=== PATIENT | male | born 1945 | race Caucasian/White ===

== ENCOUNTER 2020-02-04 19:56 | Emergency (ER) | payer MEDICARE, MEDICAID, SELFPAY ==
[2020-02-04] VITALS (10 sets, daily range): BP systolic 93–124; BP diastolic 50–82; PULSE 60–70; RESP 14–20; TEMP 36.4; O2SAT 95–100
--- NOTE | ~2020-02-04 | XR_ITS ---
EXAMINATION: XR chest 1V portable INDICATION: Chest tightness TECHNIQUE: Portable AP chest at 2035 hours COMPARISON: 06/27/2019 FINDINGS: There is chronic atelectasis and scarring of the lung bases. There is a chronic small left pleural effusion. The lungs are free of acute opacities. A small right pleural effusion has developed . There are changes of heart valve replacement. There is no pneumothorax. IMPRESSION: 1. Small pleural effusions, chronic on the left and new on the right. 2. Bibasilar atelectasis, unchanged. Reviewed, dictated and finalized at location A.
--- NOTE | 2020-02-04 20:16 | ECG_ITS ---
Measurements Intervals [place] Rate: 67 P: 40 ND: 176 QRS: -22 QRSD: 176 T: 129 QT: 459 QTc: 485 Interpretive Statements SINUS RHYTHM LEFT BUNDLE BRANCH BLOCK ABNORMAL ECG Electronically Signed On 02-05-2020 7:14:23 CDT by Brooks Ordoñez D.O.
[2020-02-04 20:41] LABS: Basophils Absolute Auto 0.04 K/mm3 (0.00-0.10); Basophils Percent Auto 0.5 % (0.0-1.0); Eosinophils Absolute Auto 0.23 K/mm3 (0.02-0.50); Eosinophils Percent Auto 2.7 % (1.0-6.0); Hematocrit 32.1 % (37.0-46.0); Hemoglobin 10.8 g/dL (12.4-15.3); Immature Granulocyte Absolute 0.02 K/mm3 (0.00-0.00); Immature Granulocyte Percent A 0.2 % (0.0-0.0); Lymphocytes Absolute Auto 3.52 K/mm3 (1.10-4.50); Lymphocytes Percent Auto 40.7 % (18.0-42.0); Mean Corpuscular HGB Conc 33.6 g/dL (32.0-36.0); Mean Corpuscular Hemoglobin 28.5 pg (27.0-31.0); Mean Corpuscular Volume 84.7 fL (78.0-102.0); Mean Platelet Volume 10.9 fl (8.7-11.0); Monocytes Absolute Auto 0.59 K/mm3 (0.10-0.90); Monocytes Percent Auto 6.8 % (2.0-11.0); Neutrophils Absolute Auto 4.2 K/mm3 (1.7-7.2); Neutrophils Percent Auto 49.1 % (50.0-70.0); Platelet Count Result 254 K/mm3 (150-420); Red Blood Count 3.79 M/mm3 (4.70-6.10); Red Cell Distribution Width 15.2 % (11.6-14.4); White Blood Count 8.6 K/mm3 (4.8-10.8)
--- NOTE | 2020-02-04 20:49 | ED.CHESTPAIN ---
HPI - Chest Pain General Chief Complaint: Chest Pain Stated Complaint: AMB Source: patient Mode of arrival: EMS Limitations: no limitations History of Present Illness HPI narrative: 74 y.o. male with hx of CABG 11/28/2011, HTN, DM, hyperlipidemia developed a sensation in his left chest of his heart being squeezed . It is non-radiating with no assoc. neck, back or arm pain. This has been associated with feeling lightheaded, sweating and shortness of breath. He denies nausea/vomiting. He has not had this pain recently. He states he's had a heart attack before which felt just like this. Related Data Home Medications Medication Instructions Recorded Confirmed aripiprazole 10 mg PO HS 02/04/20 02/04/20 aspirin [Aspirin Low Dose] 81 mg PO DAILY 02/04/20 02/04/20 atorvastatin 20 mg PO DAILY 02/04/20 02/04/20 divalproex 250 mg PO BID 02/04/20 02/04/20 fenofibrate nanocrystallized 145 mg PO DAILY 02/04/20 02/04/20 furosemide 40 mg PO DAILY 02/04/20 02/04/20 insulin glargine [Lantus U-100 32 unit SUBCUT HS 02/04/20 02/04/20 Insulin] insulin lispro [Humalog KwikPen 10 unit SUBCUT TID 02/04/20 02/04/20 Insulin] ipratropium-albuterol 3 ml INHALATION Q6H PRN 02/04/20 02/04/20 loratadine 10 mg PO DAILY 02/04/20 02/04/20 metformin 500 mg PO DAILY 02/04/20 02/04/20 pantoprazole 40 mg PO DAILY 02/04/20 02/04/20 sertraline 100 mg PO DAILY 02/04/20 02/04/20 warfarin 2.5 mg PO HS 02/04/20 02/04/20 warfarin 5 mg PO HS 02/04/20 02/04/20 Allergies Allergy/AdvReac Type Severity Reaction Status Date / Time No Known Allergies Allergy Verified 10/12/18 15:30 Review of Systems Constitutional: Constitutional: Reports no additional constitutional complaints, Denies chills and Denies fever(s) Eyes: Eyes: Denies change in vision ENT: Denies nasal congestion and Denies sore throat Cardiovascular: Cardiovascular: Reports no additional cardiovascular complaints Respiratory: Respiratory: Denies cough, Denies pain on inspiration and Denies pain with cough Gastrointestinal: Gastrointestinal: Reports no additional gastrointestinal complaints, Denies abdominal pain and Denies diarrhea Genitourinary: Genitourinary: Denies dysuria Musculoskeletal: Musculoskeletal: Reports no additional musculoskeletal complaints Integumentary/Breasts: Skin/Breast: Denies rash Neurologic: Denies headache(s) Psychiatric: Psychiatric: Denies suicidal ideation Endocrine: Endocrine: Denies polydipsia Hematologic/Lymphatic: Hematologic/Lymphatic: Denies easy bleeding [facility] Past Medical History Medical History (Updated 02/05/20 @ 06:46 by Ulises Choi MD) Atrial fibrillation Postoperatively after CABG with bioprosthetic aortic valve replacement Chronic anemia Chronic anticoagulation With Coumadin INR 2.2 February 03, 2001 Diabetes mellitus, with long-term current use of insulin Diastolic congestive heart failure, NYHA class 2 Echocardiogram August 2019: 1. Left ventricular systolic function is normal, estimated at 60-65%. 2. There is mildly increased left ventricular wall thickness. 3. Left ventricular septal wall motion is abnormal with septal motion related to bundle branch block. 4. The left ventricular diastolic function is grade II diastolic dysfunction. 5. Probable perimembranous VSD peak velocity 5.3 m/sec 110 mmHg gradient, however, not well visualized on this study. 6. The bioprosthetic aortic valve is not well visualized. 7. There is no bioprosthetic aortic valve stenosis. 8. There is trace regurgitation of the bioprosthetic aortic valve. 9. The mitral valve has thickened leaflets. 10. There is trace mitral valve regurgitation. 11. Focal, predominantly fixed and calcified echodensity above anterior mitral valve leaflet. 12. Unable to estimate PA systolic pressure due to poor spectral resolution of tricuspid regurgitant jet. 13. Mild mitral annular calcification. Glaucoma Hyperlipidemia Hypertension Mitral valve prolapse
[2020-02-04] MEDS: SODIUM CHLORIDE 0.9% IV 1,000 ML 999 ML IV CONT (20:52)
[2020-02-04 20:53] LABS: D Dimer 0.26 mg/L (0.19-0.50)
[2020-02-04 20:57] LABS: Alanine Aminotransferase 14 U/L (16-63); Albumin Level 3.2 g/dL (3.4-5.0); Alkaline Phosphatase 49 U/L (46-116); Anion Gap 13.2 mmol/L (7-16); Aspartate Amino Transferase 18 U/L (15-37); Bilirubin,Total 0.3 mg/dL (0.00-1.00); Blood Urea Nitrogen 42 mg/dL (7-18); Calcium 8.4 mg/dL (8.5-10.1); Carbon Dioxide 25 mmol/L (21-32); Chloride 104 mmol/L (98-108); Estimated Glomerular Filt Rate 48; Glucose 122 mg/dL (70-99); Osmolality Calculated 297 mOsm/kg (285-295); Potassium 4.2 mmol/L (3.5-5.1); Sodium 138 mmol/L (136-145); Total Protein 6.2 g/dL (6.4-8.2); Troponin I 0.03 ng/mL (0.00-0.056)
[2020-02-04 21:05] LABS: BNP 179 pg/mL (0-100)
[2020-02-04] MEDS: NITROGLYCERIN SL 0.4 MG TABLET SUBLINGUAL (21:17)
--- NOTE | 2020-02-04 21:48 | PC.NURSE ---
calista Saeedwarehouse loader at [place] contacted for transfer
--- NOTE | 2020-02-04 22:02 | PC.NURSE ---
1 L IVF completed per ERP verbal orders
[2020-02-04 22:11] LABS: INR 2.2; Prothrombin Time 22.1 Seconds (9.64-11.0)
[2020-02-04] MEDS: HEPARIN SODIUM 5,000 UNITS/ML VIAL 4000 UNITS IV PUSH (22:42)
[2020-02-04] MEDS: HEPARIN SOD/D5W 100 UNITS/ML 25,000 UNITS/250 ML BAG 8.1 UNITS (22:43)
--- NOTE | 2020-02-04 23:18 | ECG_ITS ---
Measurements Intervals [place] Rate: 72 P: 16 IA: 181 QRS: -29 QRSD: 173 T: 128 QT: 467 QTc: 515 Interpretive Statements SINUS RHYTHM LEFT BUNDLE BRANCH BLOCK BASELINE ARTIFACT- I, II, III ABNORMAL ECG Electronically Signed On 02-05-2020 7:14:44 CDT by Brooks Ordoñez D.O.
--- NOTE | 2020-02-04 23:27 | PC.NURSE ---
CONTACTED ERP AT THIS TIME
[2020-02-04 23:52] LABS: Troponin I 0.03 ng/mL (0.00-0.056)
[2020-02-05 00:26] VITALS: BP 130/71; PULSE 70; RESP 18; O2SAT 97
--- NOTE | 2020-02-05 00:26 | PC.NURSE ---
Pt. resting, waiting transfer and to give report/Rm bed assignment at [facility]. Pt. informed on wait time, no c/o, VSS.
[2020-02-05 00:47] VITALS: BP 112/60; PULSE 71; RESP 18; O2SAT 98
[2020-02-05 01:02] VITALS: BP 114/63; PULSE 72; RESP 18; TEMP 36.6; O2SAT 97
--- NOTE | 2020-02-05 01:19 | PC.NURSE ---
0110 Call palced to [facility] for pt. transfer due to [facility] having no available staff for transfer.
--- NOTE | 2020-02-05 02:12 | PC.NURSE ---
Report given to [facility], pt. sleeping, VSS.
[2020-02-05 02:13] VITALS: BP 122/67; PULSE 72; RESP 18; TEMP 36.7; O2SAT 98
[2020-02-05 03:22] LABS: Glucose Point of Care 60 (65-105)
== END 2020-02-05 02:13 | disposition short-term general hospital (02) ==
PROVIDERS: Emergency Provider Family Medicine
DX: R07.9 Chest pain, unspecified (principal); N17.9 Acute kidney failure, unspecified; R06.02 Shortness of breath; I48.91 Unspecified atrial fibrillation; Z79.01 Long term (current) use of anticoagulants; E11.9 Type 2 diabetes mellitus without complications; Z79.4 Long term (current) use of insulin; E78.5 Hyperlipidemia, unspecified; I10 Essential (primary) hypertension
CPT/HCPCS: 36415; 71045; 80053; 83880; 84484; 85025; 85380; 85610; 93005; 96361; 96365; 96366; 99283; 99285; A9270; J1644; J7030

== ENCOUNTER 2020-02-05 08:00 | Inpatient (IN) | payer MEDICARE, MEDICAID, SELFPAY ==
[2020-02-05] VITALS (9 sets, daily range): BP systolic 104–147; BP diastolic 49–70; PULSE 57–70; RESP 18–20; TEMP 35.8–36.6; O2SAT 96–99; BMI 27.1
--- NOTE | 2020-02-05 03:51 | ADMGEN ---
This patient, Nery Bowie, was admitted to IMU Room 202-01 02/05/20 0250 DIRECT ADM. FROM [facility]. Patient/family oriented to hospital policies and general routines including ID bracelet, bed and alarms, visiting hours, pain management, procedures, bathroom and other care routines, personal items, smoking policy, room service/diet, and visiting hours. Valuables list has been completed. Information on how to activate the Rapid Response Team has been discussed. Patient/Family are encouraged to report perceived risks to care and to ask questions if they do not understand what they are told or what they should do.
--- NOTE | 2020-02-05 03:56 | PM.IMHP ---
H&P: HPI History of Present Illness Chief complaint: Chest Pain Narrative: Date and time of patient contact: 02/05/2020 at 4:30 a.m. Nery Bowie is a 74 year old male with a past medical history of coronary artery disease status post 2 vessel CABG, bioprosthetic aortic valve replacement, VSD, diabetes on insulin therapy, and intellectual disability who presented to the ER at [facility] due to chest pain. The patient had had an abnormal stress test as outpatient and had been scheduled for an outpatient cardiac catheterization January 22, 2020 however his catheterization did not occurred due to the current COVID-19 crisis. The patient developed left chest discomfort and feeling as if his heart was ?being squeezed.? He also reported lightheadedness, sweating and shortness of breath. He denies any nausea or vomiting. He had not noticed any radiation of his pain. The symptoms were similar to his prior heart attack. At the outside ER the patient received 1 dose of sublingual nitroglycerin which caused borderline hypotension with systolic blood pressures in 93/54. The nitroglycerin did improve his symptoms somewhat. Review of Systems Review of Systems: Narrative: 12 systems were reviewed with pertinent positives and negatives per HPI. Except as documented in the HPI, all other systems were reviewed and are negative. However review of systems is not the most reliable given the patient's intellectual disability and psychiatric illness. [facility] Past Medical History Medical History (Updated 02/05/20 @ 06:46 by Ulises Choi MD) Atrial fibrillation Postoperatively after CABG with bioprosthetic aortic valve replacement Chronic anemia Chronic anticoagulation With Coumadin INR 2.2 February 03, 2001 Diabetes mellitus, with long-term current use of insulin Diastolic congestive heart failure, NYHA class 2 Echocardiogram August 2019: 1. Left ventricular systolic function is normal, estimated at 60-65%. 2. There is mildly increased left ventricular wall thickness. 3. Left ventricular septal wall motion is abnormal with septal motion related to bundle branch block. 4. The left ventricular diastolic function is grade II diastolic dysfunction. 5. Probable perimembranous VSD peak velocity 5.3 m/sec 110 mmHg gradient, however, not well visualized on this study. 6. The bioprosthetic aortic valve is not well visualized. 7. There is no bioprosthetic aortic valve stenosis. 8. There is trace regurgitation of the bioprosthetic aortic valve. 9. The mitral valve has thickened leaflets. 10. There is trace mitral valve regurgitation. 11. Focal, predominantly fixed and calcified echodensity above anterior mitral valve leaflet. 12. Unable to estimate PA systolic pressure due to poor spectral resolution of tricuspid regurgitant jet. 13. Mild mitral annular calcification. Glaucoma Hyperlipidemia Hypertension Mitral valve prolapse OCD (obsessive compulsive disorder) Schizophrenia VSD (ventricular septal defect) Postoperative EST managed conservatively Surgical History Surgical History (Updated 02/05/20 @ 04:09 by Marine Gaffney DO) History of aortic valve replacement with bioprosthetic valve Hx of CABG 2 vessel CABG October 2011 with GONZALEZ to LAD and left radial artery graft to obtuse marginal branch Family History Family History Mother Diabetes mellitus Adopted (not a blood relative) Father Cancer Adopted (not a blood relative) Social History Social History (Updated 02/05/20 @ 04:14 by Marine Gaffney DO) Social History: The patient is adopted so family history is unknown. The patient's legal guardian is Aicha Rogers. He lives in a nursing home in [place]. Primary care physician: Dr. Adrian Logan Code status: Full code Smoking packs per day: 1 Smoking cigarettes per day: 20.0 Years smoked: 3
[2020-02-05 04:23] LABS: Glucose Point of Care 177 (65-105)
[2020-02-05 04:59] LABS: Blood Urea Nitrogen 36 mg/dL (9-20); Calcium 8.2 mg/dL (8.4-10.2); Carbon Dioxide 25 mmol/L (22-30); Chloride 105 mmol/L (98-107); Estimated CRCL calculation 50 ml/min; Estimated Glomerular Filt Rate > 60; Glucose 186 mg/dL (75-110); Potassium 4.1 mmol/L (3.4-5.0); Sodium 134 mmol/L (137-145)
[2020-02-05 05:11] LABS: Troponin I < 0.012 ng/mL (0.000-0.034)
[2020-02-05] MEDS: SODIUM CHLORIDE 0.9% IV 1,000 ML 100 ML IV CONT (05:12)
--- NOTE | 2020-02-05 08:53 | PM.IMPN ---
Progress Note: A&P Assessment and Plan (1) Chest pain: Qualifiers: Chest pain type: chest pain due to myocardial ischemia Ischemic chest pain type: unstable angina pectoris Qualified Code(s): I20.0 - Unstable angina Code(s): R07.9 - Chest pain, unspecified Status: Acute Assessment and Plan: Atypical chest pain. Serial troponin levels are negative. Cardiology consulted and appreciate input. Discussed with Dr. Garcia and does not appear to need urgent cardiac catheterization at this time. Will discharge home with outpatient cardiology follow-up. (2) Acute kidney injury: Code(s): N17.9 - Acute kidney failure, unspecified Status: Acute Assessment and Plan: Creatinine slightly elevated but has already returned to his baseline. No further investigation needed at this time. 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 Warfarin not given last night. Continue to follow INR. (4) Hypertension: Qualifiers: Hypertension type: essential hypertension Qualified Code(s): I10 - Essential (primary) hypertension Code(s): I10 - Essential (primary) hypertension Status: Acute Assessment and Plan: Not on medication. Blood pressure reviewed on 02/05/2020 and stable. (5) Diastolic congestive heart failure, NYHA class 2: Qualifiers: Congestive heart failure chronicity: chronic Qualified Code(s): I50.32 - Chronic diastolic (congestive) heart failure Code(s): I50.30 - Unspecified diastolic (congestive) heart failure Status: Acute Assessment and Plan: No exacerbation at this time. 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 Continue home Lantus, Humalog and metformin. Sliding scale insulin available as needed. (7) DVT prophylaxis: Code(s): Z29.9 - Encounter for prophylactic measures, unspecified Status: Acute Assessment and Plan: INR therapeutic. Time Spent With Patient Time with patient: 15 - 25 minutes Subjective Date/time seen: 02/05/20 08:53 Interval history: Date of Service: 02/05/2020. Transferred from [place] with atypical chest pain. Patient does intellectual disability. Still complains of pain left lower chest. Always has shortness of breath. No abdominal pain. Hungry. Review of Systems Constitutional: Constitutional: Denies chills and Denies fever(s) Cardiovascular: Cardiovascular: Reports chest pain (pressure left lower chest), Denies lightheadedness and Denies palpitations Respiratory: Respiratory: Reports dyspnea (always) Gastrointestinal: Gastrointestinal: Denies abdominal pain, Denies nausea and Denies vomiting Genitourinary: Genitourinary: Reports no additional male genitourinary complaints Musculoskeletal: Musculoskeletal: Reports no additional musculoskeletal complaints Integumentary/Breasts: Skin/Breast: Denies rash Neurologic: Denies headache(s) Psychiatric: Psychiatric: Denies confusion Comments: known intellectual disability Exam Narrative: Exam Narrative: Awake and alert. Const: General: no acute distress HENMT: Mouth: Yes moist mucous membranes Neck: Neck: supple Lymphatic: lymphadenopathy not noted Resp: Auscultation: clear to auscultation bilaterally, no rales and no wheezes Cardio: Rate: regular rate Rhythm: regular rhythm Heart sounds: Murmur heart sound present (holosystolic mu
--- NOTE | 2020-02-05 09:10 | PM.CNCAR ---
Assessment and Plan Additional Plan This is a 74-year-old gentleman with: Chest pain syndrome which began last evening which is highly atypical and in my opinion not very suggestive of myocardial ischemia. The fact that the symptom has been going on now for about 13 hours with completely normal biomarkers would lead me to the conclusion that the chances of this being an acute coronary syndrome are vanishingly small The patient does have a history of coronary artery disease with previous 2 vessel CABG as detailed above. Recent nuclear stress test in the office was reported as being abnormal and was done not because of symptomatology but because of the new left bundle branch block. It is reasonable to consider angiography for further evaluation of this which apparently was the plan of Dr. Rodriguez but it is clear that this is not an urgent matter is and cannot be done today as the patient is systemically anticoagulated. A keeping him in the hospital for an angiogram would result in a hospitalization of at least several days which in this environment of mccarthy virus seems imprudent. I would recommend allowing him to be discharged back to his care home facility. Systemic anticoagulation with warfarin has been continued by Dr Rodriguez and as such I would continue this. If he does want to proceed with an angiogram this can be scheduled in an elective fashion after the [place] Coronavirus pandemic has settled down Prince Garcia MD [facility] History of Present Illness History of Present Illness Consult date/time: Date of service: 02/05/20 09:10 Consult reason: chest pain Reason For Visit: Chest Pain Narrative: This is a 74-year-old gentleman who is well known to Dr. Echeverria of our practice. The patient is being seen at the request of the hospitalist after he was admitted here last evening from the emergency room because of some chest pain. The patient is a somewhat difficult historian because of diminished mental capacity. Apparently he lives in some sort of a care home facility and is a casey of the formerly [facility]. He is a reasonable historian however in indicates that yesterday about 7:00 p.m. he started to notice some chest pain he describes it as a a mild dull squeezing sensation in the low substernal region. This symptom did not make him feel ill in any other way he denies becoming diaphoretic having any shortness of breath or radiation of this symptom to any other location. The symptoms since it began has not been unremitting and continues through the night and is still there this morning. It is interesting because when I entered the room to see him he appears to be perfectly comfortable and in no distress of any kind. Despite this symptom as he is describing and he says he had a very good night sleep and feels well this morning and of normal otherwise. His only other complaint this morning is asking for something to eat. The patient was scheduled to have a follow-up coronary angiogram as an outpatient after being evaluated by Dr. foley recently in the office. The patient however has no recollection that this was in the plans. He does not seem to have a lot of memory of his previous cardiac care. According to the records in our chart the patient has a history of coronary disease and aortic valve disease. He was treated in October of 2011 with a 2 vessel bypass including a left internal mammary artery graft to the LAD. A radial artery T graft from the GONZALEZ to the obtuse marginal and a bioprosthetic aortic valve replacement he received a 21 mm magna pericardial bioprosthesis. According to the records as a complication of his surgery he has a small perimembranous VSD which creates an obvious murmur this is been evaluated a number of times of echo was in transesophageal echoes and according to what I see in the chart is not felt to be of hemodynamic significance. His operation was complicated by postop atrial fib but he has been in sinus rhythm recently. His last
[2020-02-05] MEDS: INSULIN ASPART (*BKC) 100 UNITS/ML 10 UNITS SUB-Q ×2 (09:43→12:15)
[2020-02-05] MEDS: INSULIN ASPART (*BKC) 100 UNITS/ML SUB-Q (09:45)
--- NOTE | 2020-02-05 09:51 | PM.DS ---
DS: Diagnosis Admitting Diagnosis Admitting Diagnosis: Unstable angina Discharge Diagnosis (1) Chest pain: Qualifiers: Chest pain type: chest pain due to myocardial ischemia Ischemic chest pain type: unstable angina pectoris Qualified Code(s): I20.0 - Unstable angina Code(s): R07.9 - Chest pain, unspecified Status: Acute (2) Acute kidney injury: Code(s): N17.9 - Acute kidney failure, unspecified Status: Acute (3) Chronic anticoagulation: Code(s): Z79.01 - alf (current) use of anticoagulants Status: Acute (4) Hypertension: Qualifiers: Hypertension type: essential hypertension Qualified Code(s): I10 - Essential (primary) hypertension Code(s): I10 - Essential (primary) hypertension Status: Acute (5) Diastolic congestive heart failure, NYHA class 2: Qualifiers: Congestive heart failure chronicity: chronic Qualified Code(s): I50.32 - Chronic diastolic (congestive) heart failure Code(s): I50.30 - Unspecified diastolic (congestive) heart failure Status: Acute (6) Diabetes mellitus, with long-term current use of insulin: Qualifiers: Diabetes mellitus complication status: without complication Diabetes mellitus type: type 2 Qualified Code(s): E11.9 - Type 2 diabetes mellitus without complications; 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 Hospital Course: Date of Service of Discharge: February 05, 2020. History of Present Illness: Patient is a 74-year-old gentleman with known CAD, bioprosthetic aortic valve replacement, VSD, diabetes insulin requiring and intellectual disability who presented to the emergency room at [facility] with chest pain. Patient had recent abnormal outpatient stress test and was scheduled for outpatient cardiac catheterization on January 22, 2020 but this was canceled due to current COVID-19 pandemic. Patient reports he developed left-sided chest discomfort while watching TV and eating popcorn. He describes the discomfort as a squeezing sensation. He also reported feeling lightheaded, sweating and with shortness of breath. No nausea or vomiting. No radiation of pain. Patient reports symptoms were similar to his prior heart attack. At the outlying emergency room, he did receive 1 dose of sublingual nitroglycerin causing borderline hypotension although did improve symptoms somewhat. Patient was transferred to [facility] for cardiac opinion and further evaluation. Course in Hospital: Patient was admitted to the IMU upon transfer to [facility]. He already had 2- troponin levels at [facility] with 3rd troponin level also negative. EKG with no acute changes. Telemetry was monitored with no acute changes seen. Patient continued to have persistence of left lower chest pain but otherwise was in not in distress. He was seen in consultation by Cardiology and pain felt to be atypical and not requiring emergent cardiac catheterization at this time. With troponin levels remaining negative and patient otherwise stable, patient was felt appropriate to discharge home with outpatient cardiac follow-up. Blood pressure continued to be monitored and was stable. There was no exacerbation of his congestive heart failure. Patient's INR was therapeutic but he was not give her in warfarin on transfer to [facility] InCase of potential for invasive procedure. Plan to resume patient's normal warfarin on discharge. He also did have slight increase in his creatinine above his normal at [facility] but returned to baseline on repeat at [facility]. Glucose remained in his normal range with his home Lantus, Humalog and metformin continued. With the patient stable and no need
[2020-02-05] MEDS: FENOFIBRATE NANOCRYSTALLIZED 145 MG TABLET PO (09:52)
[2020-02-05] MEDS: ATORVASTATIN 20 MG TABLET PO (09:53)
[2020-02-05] MEDS: DIVALPROEX SODIUM SPRINKLE 125 MG CAP.DR 250 MG PO (09:53)
[2020-02-05] MEDS: metFORMIN HCL XR 500 MG TAB.SR.24H PO (09:54)
[2020-02-05] MEDS: SERTRALINE HCL 50 MG TABLET 100 MG PO (09:54)
[2020-02-05] MEDS: LORATADINE 10 MG TABLET PO (09:55)
[2020-02-05] MEDS: ASPIRIN 81 MG ENTERIC TABLET PO (09:55)
--- NOTE | 2020-02-05 14:09 | PC.NURSE ---
To OR via bed accompanied by surgery RN's -
[2020-02-05 17:42] LABS: Glucose Point of Care 93 (65-105)
[2020-02-05 17:42] LABS: Glucose Point of Care 244 (65-105)
== END 2020-02-05 14:03 | disposition home or self-care (01) | DRG 303 ==
PROVIDERS: Admitting Provider Internal Medicine; Visit Provider Hospitalist
DX: I25.110 Atherosclerotic heart disease of native coronary artery with unstable angina pectoris (principal); I50.32 Chronic diastolic (congestive) heart failure; N17.9 Acute kidney failure, unspecified; I51.0 Cardiac septal defect, acquired; Z95.1 Presence of aortocoronary bypass graft; Z95.3 Presence of xenogenic heart valve; E11.9 Type 2 diabetes mellitus without complications; Z79.4 Long term (current) use of insulin; F79 Unspecified intellectual disabilities; I25.2 Old myocardial infarction; D64.9 Anemia, unspecified; Z79.01 Long term (current) use of anticoagulants; H40.9 Unspecified glaucoma; E78.5 Hyperlipidemia, unspecified; I34.1 Nonrheumatic mitral (valve) prolapse; F42.9 Obsessive-compulsive disorder, unspecified; F20.9 Schizophrenia, unspecified; Z87.891 Personal history of nicotine dependence; I44.7 Left bundle-branch block, unspecified; I11.0 Hypertensive heart disease with heart failure
CPT/HCPCS: 36415; 80048; 84484; A9270; J1815; J7030

== ENCOUNTER 2020-03-23 00:06 | Outpatient (CLI) | payer MEDICARE, MEDICAID, SELFPAY ==
[2020-03-23 16:10] LABS: SARS-CoV-2 RNA PCR Negative
== END 2020-03-23 00:07 | disposition home or self-care (01) ==
LOC: ANHCOVIDDT 00:07
PROVIDERS: PCP Family Medicine; Visit Provider Internal Medicine Cardiovascular Disease
DX: Z01.818 Encounter for other preprocedural examination (principal); Z11.59 Encounter for screening for other viral diseases; R94.39 Abnormal result of other cardiovascular function study
CPT/HCPCS: 87635; C9803; U0003

== ENCOUNTER 2020-03-25 01:09 | Day surgery (SDC) | payer MEDICARE, MEDICAID, SELFPAY ==
[2020-03-25] VITALS (10 sets, daily range): BP systolic 108–158; BP diastolic 60–77; PULSE 52–70; RESP 14–19; TEMP 36.5–36.6; O2SAT 95–100; BMI 24.0
[2020-03-25 07:19] LABS: Basophils Percent Auto 0.5 % (0.2-1.2); Eosinophils Absolute Auto 0.3 K/mm3 (0-0.3); Eosinophils Percent Auto 3.3 % (0-4.4); Hematocrit 34.9 % (42.0-52.0); Hemoglobin 11.5 g/dL (14.0-18.0); Immature Granulocyte Absolute 0.02 K/mm3 (0.00-0.031); Immature Granulocyte Percent A 0.2 % (0-0.5); Lymphocytes Absolute Auto 3.29 K/mm3 (0.9-3.2); Lymphocytes Percent Auto 37.6 % (18.3-44.2); Mean Corpuscular Hemoglobin 27.9 pg (26-34); Mean Corpuscular Volume 84.7 fl (80-100); Mean Platelet Volume 10.7 fl (7.4-10.4); Monocytes Absolute Auto 0.6 K/mm3 (0.1-0.6); Monocytes Percent Auto 6.4 % (2.6-8.5); Neutrophils Absolute Auto 4.6 K/mm3 (1.3-6.7); Platelet Count Result 255 k/mm3 (150-375); Red Blood Count 4.12 M/mm3 (4.6-6.20); Red Cell Distribution Width 15.7 % (11.5-14.5); White Blood Count 8.8 K/mm3 (4.5-10.0)
[2020-03-25 07:31] LABS: Blood Urea Nitrogen 38 mg/dL (9-20); Calcium 8.8 mg/dL (8.4-10.2); Carbon Dioxide 27 mmol/L (22-30); Chloride 106 mmol/L (98-107); Estimated CRCL calculation 50 ml/min; Estimated Glomerular Filt Rate > 60; Glucose 107 mg/dL (75-110); Potassium 4.6 mmol/L (3.4-5.0); Sodium 138 mmol/L (137-145)
--- NOTE | 2020-03-25 08:43 | WPDHPUPDATE1 ---
History and Physical Update Update Date/Time: 03/25/20 08:43 History and Physical has been reviewed, including an updated exam of the patient. There are NO changes in the patient's condition. Risks, benefits, and alternatives have been discussed and questions answered. Patient agrees to proceed with procedure.
--- NOTE | 2020-03-25 08:43 | PM.PROC ---
Procedure Note - Detailed Date of procedure: 03/25/20 Pre-op diagnosis: Abnormal Stress Test stable angina, CAD status post CABG Post-op diagnosis: same Procedure performed: PROCEDURES PERFORMED: 1. Left heart catheterization 2. Selective left and right coronary angiography 3. Left ventriculography and hemodynamics 4. Bypass graft angiography 5. Moderate/conscious sedation administration Description of procedure: PROCEDURE IN DETAIL: After verbal and written informed consent was obtained the patient, risks, benefits, and alternatives explained in detail the patient agreed to proceed with the plan of care as outlined above. The patient was subsequently brought to the cardiac catheterization lab, placed on the cardiac catheterization table, and prepped and draped in the usual sterile fashion. Utilizing approximately 16cc of 1% subcutaneous Lidocaine, the right groin was then locally anesthetized. Utilizing the modified Seldinger technique, a 5 Marshallese arterial vascular access sheath was inserted in the right common femoral artery easily and without complications. Through this access, coronary angiography and subsequently bypass graft angiography was subsequently obtained in multiple standard re-projections. Following this, a 5 Marshallese angled pigtail catheter was advanced retrograde across the prosthetic aortic valve into the cavity of the left ventricle. Left ventriculography was performed and pullback across aortic valve was subsequently recorded. The vascular access sheath and angiographic catheters were flushed before and after catheter exchanges. At the conclusion of the diagnostic portion of the procedure, all angiographic guidewires and catheters were removed and the 5 Marshallese arterial vascular access sheath was then pulled and satisfactory hemostasis was achieved using manual compression. There no complications noted at the conclusion of the diagnostic portion of the study. Anesthesia: local and other ( moderate sedation) Surgeon: Luis Fernando Rodriguez MD Estimated blood loss (mL): 10 Drains: No Packing: No Pathology: none sent Complications: No immediate complications Condition: stable Disposition: same day Findings: BRIEF HISTORY OF PRESENT ILLNESS: Patient is a pleasant 74-year-old male with a history of 2 vessel CABG GONZALEZ to LAD and left radial T graft to OM, postoperative VSD, bioprosthetic aortic valve replacement, hypertension, diabetes mellitus, postoperative atrial fibrillation maintaining sinus rhythm, mobile echodensity intracardiac on warfarin who complained of exertional chest pain resolved with rest. He underwent noninvasive ischemic evaluation which revealed mid anterolateral, inferolateral, apical lateral ischemia with fixed defects consistent with infarction in the inferior wall versus diaphragmatic attenuation. Patient was noted to have a hypotensive blood pressure response to Lexiscan, EF 70% without wall motion abnormalities. Patient has a chronic left bundle-branch block. Patient is now referred for coronary angiography for delineation of rincon coronary and bypass graft angiography. CATHETERS UTILIZED: Left coronary system- 5 Marshallese JL4 catheter Right coronary system- 5 Marshallese JR4 catheter GONZALEZ to LAD and L Radial T graft to OM2- 5 Marshallese ROSIO catheter Left ventriculography and hemodynamics- 5 Marshallese angled pigtail catheter MODERATE SEDATION/ANESTHESIA ADMINISTRATION: Patient reports no prior problems with sedation/anesthesia. Please see pre-sedation noted for physical examination documentation. Sedation start time was 0901 and end time was 0927 for a total intra-service/procedure face-face time of 26 minutes. A total of 1 mg intravenous Versed and a total of 50 mcg intravenous Fentanyl was administered for moderate sedation. Moderate sedation was administered by qualified/certified observer Xavi Terrell RN under my supervision with intra-procedure [id number] observation and management throughout the entirety
--- NOTE | 2020-03-25 08:51 | WPDMODSED ---
Moderate Sedation Note-Pt Data Patient Data Diagnosis: STABLE ANGINA, ABNORMAL STRESS TEST, STATUS POST CABG Present Complaint: chest pain Procedure to be performed/Plan: left heart catheterization with selective left and right coronary angiography, bypass graft angiography, left ventriculography and hemodynamics and possible percutaneous intervention and stent implantation Allergies Allergy/AdvReac Type Severity Reaction Status Date / Time No Known Allergies Allergy Verified 03/25/20 07:35 Home Medications Medication Instructions Recorded Confirmed Type Lantus U-100 Insulin 32 unit SUBCUT HS 02/04/20 03/25/20 History aripiprazole 10 mg PO HS 02/04/20 03/25/20 History aspirin [Aspirin Low Dose] 81 mg PO DAILY 02/04/20 03/25/20 History atorvastatin 20 mg PO DAILY 02/04/20 03/25/20 History divalproex 250 mg PO BID 02/04/20 03/25/20 History fenofibrate nanocrystallized 145 mg PO DAILY 02/04/20 03/25/20 History furosemide 40 mg PO DAILY 02/04/20 03/25/20 History insulin lispro [Humalog KwikPen 10 unit SUBCUT TID 02/04/20 03/25/20 History Insulin] ipratropium-albuterol 3 ml INHALATION Q6H PRN 02/04/20 03/25/20 History loratadine 10 mg PO DAILY 02/04/20 03/25/20 History metformin 500 mg PO DAILY 02/04/20 03/25/20 History pantoprazole 40 mg PO DAILY 02/04/20 03/25/20 History sertraline 100 mg PO DAILY 02/04/20 03/25/20 History warfarin 2.5 mg PO HS 02/04/20 03/25/20 History warfarin 5 mg PO HS 02/04/20 03/25/20 History Current Medications: Active Medications Sodium Chloride (Normal Saline Iv) 500 mls @ 100 mls/hr IV CONT .Q5H CHUCK Sedation/Anesthesia: No previous sedation/anesthesia problems (including family history). FOR[facility]LY [facility] Past Medical History Medical History Atrial fibrillation Postoperatively after CABG with bioprosthetic aortic valve replacement Chronic anemia Chronic anticoagulation With Coumadin INR 2.2 February 03, 2001 Diabetes mellitus, with long-term current use of insulin Diastolic congestive heart failure, NYHA class 2 Echocardiogram August 2019: 1. Left ventricular systolic function is normal, estimated at 60-65%. 2. There is mildly increased left ventricular wall thickness. 3. Left ventricular septal wall motion is abnormal with septal motion related to bundle branch block. 4. The left ventricular diastolic function is grade II diastolic dysfunction. 5. Probable perimembranous VSD peak velocity 5.3 m/sec 110 mmHg gradient, however, not well visualized on this study. 6. The bioprosthetic aortic valve is not well visualized. 7. There is no bioprosthetic aortic valve stenosis. 8. There is trace regurgitation of the bioprosthetic aortic valve. 9. The mitral valve has thickened leaflets. 10. There is trace mitral valve regurgitation. 11. Focal, predominantly fixed and calcified echodensity above anterior mitral valve leaflet. 12. Unable to estimate PA systolic pressure due to poor spectral resolution of tricuspid regurgitant jet. 13. Mild mitral annular calcification. Glaucoma Hyperlipidemia Hypertension Mitral valve prolapse OCD (obsessive compulsive disorder) Schizophrenia VSD (ventricular septal defect) Postoperative EST managed conservatively Surgical History Surgical History History of aortic valve replacement with bioprosthetic valve Hx of CABG 2 vessel CABG October 2011 with GONZALEZ to LAD and left radial artery graft to obtuse marginal branch Family History Family History Mother Diabetes mellitus Adopted (not a blood relative) Father Cancer Adopted (not a blood relative) Social History Social History Social History: The patient is adopted so family history is unknown. The patient's legal guardian is Aicha Vanda
--- NOTE | 2020-03-25 14:00 | SUR.PHASEII ---
1330 Patient ambulated up to bathroom and then to the chair with no signs of bleeding or hematoma. Will continue to monitor.
== END 2020-03-25 14:25 | disposition home or self-care (01) ==
PROVIDERS: PCP Family Medicine; Visit Provider Internal Medicine Cardiovascular Disease
PROC: 4A023N7 Measurement of Cardiac Sampling and Pressure, Left Heart, Percutaneous Approach (ICD-10-PCS; CPT 93459; principal; 2020-03-25 08:00)
DX: I25.118 Atherosclerotic heart disease of native coronary artery with other forms of angina pectoris (principal); R94.39 Abnormal result of other cardiovascular function study; D64.9 Anemia, unspecified; I48.91 Unspecified atrial fibrillation; E11.9 Type 2 diabetes mellitus without complications; I50.30 Unspecified diastolic (congestive) heart failure; I11.0 Hypertensive heart disease with heart failure; E78.5 Hyperlipidemia, unspecified; H40.9 Unspecified glaucoma; F20.9 Schizophrenia, unspecified; I34.1 Nonrheumatic mitral (valve) prolapse; Z95.1 Presence of aortocoronary bypass graft; Z95.2 Presence of prosthetic heart valve; Z79.84 Long term (current) use of oral hypoglycemic drugs; Z79.82 Long term (current) use of aspirin; Z79.01 Long term (current) use of anticoagulants; Z79.4 Long term (current) use of insulin; Z87.891 Personal history of nicotine dependence
CPT/HCPCS: 36415; 80048; 85025; 85610; 93459; C1769; C1887; C1894; J1644; J2250; J3010; J7040

== ENCOUNTER 2020-05-15 20:40 | Observation (INO) | payer MEDICARE, MEDICAID, SELFPAY ==
--- NOTE | ~2020-05-15 | XR_ITS ---
EXAMINATION: XR chest 1V portable DATE: 05/15/2020 21:45 INDICATION: Left chest pain. TECHNIQUE: A single frontal view of the chest was obtained. COMPARISON: Chest single view 02/04/2020, chest CT 03/25/2017 FINDINGS: There is a chronic small loculated left pleural effusion. There is mild atelectasis in left mid and lower lung zones. No pneumothorax. The heart size is normal. There are changes of aortic frankie ve replacement. IMPRESSION: 1. Chronic small loculated left pleural effusion. 2. Mild atelectasis in left mid and lower lung zones. Reviewed, dictated and finalized at location A.
[2020-05-15 20:46] VITALS: BP 135/72; PULSE 72; RESP 16; TEMP 36.4; O2SAT 97
--- NOTE | 2020-05-15 21:22 | ED.CHESTPAIN ---
HPI - Chest Pain General Chief Complaint: Chest Pain Stated Complaint: AMB Time Seen by Provider: 05/15/20 21:22 History of Present Illness HPI narrative: 74-year-old male patient was brought to the ER by [facility] with chief complaints of chest pain. The patient states that he started feeling some tightness in the chest at around 7:00 a.m. this evening. He states that the tightness and the pain is localized. He denies any radiation of the pain into the neck jaw or arm. He states that he has had a heart attack and heart problems in the past. At this time he describes pain as mild. He states that he is hungry and would like to eat. He denies any associated shortness of breath or palpitations. Patient is unable to quantify the pain at this time. The patient states that he has had similar episodes of pain in the past and has been admitted for observation in the past as well. Related Data Home Medications Medication Instructions Recorded Confirmed Lantus U-100 Insulin 32 unit SUBCUT HS 02/04/20 05/15/20 aripiprazole 10 mg PO HS 02/04/20 05/15/20 aspirin [Aspirin Low Dose] 81 mg PO DAILY 02/04/20 05/15/20 atorvastatin 20 mg PO DAILY 02/04/20 05/15/20 divalproex 250 mg PO BID 02/04/20 05/15/20 fenofibrate nanocrystallized 145 mg PO DAILY 02/04/20 05/15/20 furosemide 40 mg PO DAILY 02/04/20 05/15/20 insulin lispro [Humalog KwikPen 10 unit SUBCUT TID 02/04/20 05/15/20 Insulin] ipratropium-albuterol 3 ml INHALATION Q6H PRN 02/04/20 05/15/20 loratadine 10 mg PO DAILY 02/04/20 05/15/20 metformin 500 mg PO DAILY 02/04/20 05/15/20 pantoprazole 40 mg PO DAILY 02/04/20 05/15/20 sertraline 100 mg PO DAILY 02/04/20 05/15/20 warfarin 2.5 mg PO HS 02/04/20 05/15/20 warfarin 5 mg PO HS 02/04/20 05/15/20 Allergies Allergy/AdvReac Type Severity Reaction Status Date / Time No Known Allergies Allergy Verified 03/25/20 07:35 Review of Systems Review of Systems: All systems reviewed & are unremarkable except as noted in HPI and below PMFSH Past Medical History Medical History Atrial fibrillation Postoperatively after CABG with bioprosthetic aortic valve replacement Chronic anemia Chronic anticoagulation With Coumadin INR 2.2 February 03, 2001 Diabetes mellitus, with long-term current use of insulin Diastolic congestive heart failure, NYHA class 2 Echocardiogram August 2019: 1. Left ventricular systolic function is normal, estimated at 60-65%. 2. There is mildly increased left ventricular wall thickness. 3. Left ventricular septal wall motion is abnormal with septal motion related to bundle branch block. 4. The left ventricular diastolic function is grade II diastolic dysfunction. 5. Probable perimembranous VSD peak velocity 5.3 m/sec 110 mmHg gradient, however, not well visualized on this study. 6. The bioprosthetic aortic valve is not well visualized. 7. There is no bioprosthetic aortic valve stenosis. 8. There is trace regurgitation of the bioprosthetic aortic valve. 9. The mitral valve has thickened leaflets. 10. There is trace mitral valve regurgitation. 11. Focal, predominantly fixed and calcified echodensity above anterior mitral valve leaflet. 12. Unable to estimate PA systolic pressure due to poor spectral resolution of tricuspid regurgitant jet. 13. Mild mitral annular calcification. Glaucoma Hyperlipidemia Hypertension Mitral valve prolapse OCD (obsessive compulsive disorder) Schizophrenia VSD (ventricular septal defect) Postoperative EST managed conservatively Surgical History Surgical History History of aortic valve replacement with bioprosthetic valve Hx of CABG 2 vessel CABG October 2011 with GONZALEZ to LAD and left radial artery graft to obtuse marginal branch Family History Family History Mother
--- NOTE | 2020-05-15 21:23 | ECG_ITS ---
Measurements Intervals [place] Rate: 76 P: 49 W[place]: 176 QRS: -3 QRSD: 174 T: 128 QT: 449 QTc: 505 Interpretive Statements SINUS RHYTHM LEFT BUNDLE BRANCH BLOCK ABNORMAL ECG Electronically Signed On 05-16-2020 7:48:23 CDT by Brooks Ordoñez D.O.
[2020-05-15 21:41] LABS: Basophils Absolute Auto 0.03 K/mm3 (0.00-0.10); Basophils Percent Auto 0.3 % (0.0-1.0); Eosinophils Absolute Auto 0.15 K/mm3 (0.02-0.50); Eosinophils Percent Auto 1.7 % (1.0-6.0); Hemoglobin 9.9 g/dL (12.4-15.3); Immature Granulocyte Absolute 0.03 K/mm3 (0.00-0.00); Immature Granulocyte Percent A 0.3 % (0.0-0.0); Lymphocytes Absolute Auto 3.21 K/mm3 (1.10-4.50); Lymphocytes Percent Auto 37.3 % (18.0-42.0); Mean Corpuscular Hemoglobin 28.2 pg (27.0-31.0); Mean Corpuscular Volume 85.5 fL (78.0-102.0); Mean Platelet Volume 10.3 fl (8.7-11.0); Monocytes Absolute Auto 0.56 K/mm3 (0.10-0.90); Monocytes Percent Auto 6.5 % (2.0-11.0); Neutrophils Absolute Auto 4.6 K/mm3 (1.7-7.2); Neutrophils Percent Auto 53.9 % (50.0-70.0); Platelet Count Result 237 K/mm3 (150-420); Red Blood Count 3.51 M/mm3 (4.70-6.10); Red Cell Distribution Width 15.9 % (11.6-14.4); White Blood Count 8.6 K/mm3 (4.8-10.8)
[2020-05-15 21:48] LABS: Add Urine Microscopic? YES; Appearance Urine Clear (Clear); Bilirubin Urine Negative (Negative); Blood Urine Negative (Negative); Color Urine Yellow (Yellow); Glucose Urine UA 2+ (Negative); Ketones Urine Negative (Negative); Leukocyte Esterase Ur Negative LEU/UL (Negative); Nitrate Urine Negative (Negative); Protein Urine Negative (Negative); pH Urine 6.5 (5.0-8.0)
[2020-05-15 21:55] LABS: INR 2.3; Partial Thromboplastin Time 38.5 SEC (22.3-31.6); Prothrombin Time 22.8 Seconds (9.64-11.0)
[2020-05-15 21:59] LABS: Bacteria Urine Trace /hpf; RBC Urine 0-2 /hpf (0-2); Squamous Epithelial Cell Urine Rare /hpf (Few); WBC Urine 0-3 /hpf (0-3)
[2020-05-15 22:00] LABS: Alanine Aminotransferase 19 U/L (16-63); Alkaline Phosphatase 56 U/L (46-116); Anion Gap 9.3 mmol/L (7-16); Aspartate Amino Transferase 15 U/L (15-37); Bilirubin,Total 0.2 mg/dL (0.00-1.00); Blood Urea Nitrogen 43 mg/dL (7-18); Calcium 8.3 mg/dL (8.5-10.1); Carbon Dioxide 28 mmol/L (21-32); Chloride 106 mmol/L (98-108); Estimated CRCL calculation 42 ml/min; Estimated Glomerular Filt Rate 53; Glucose 205 mg/dL (70-99); Osmolality Calculated 304 mOsm/kg (285-295); Potassium 4.3 mmol/L (3.5-5.1); Sodium 139 mmol/L (136-145); Total Protein 6.2 g/dL (6.4-8.2)
[2020-05-15 22:01] LABS: Troponin I < 0.02 ng/mL (0.00-0.056)
[2020-05-15 22:02] LABS: BNP 227 pg/mL (0-100)
--- NOTE | 2020-05-15 22:13 | PC.NURSE ---
RN CONTACTED 2ND FLOOR, [facility], TO REQUEST CP OBS ROOM. ROOM 205 PROVIDED. REGISTRATION NOTIFIED.
[2020-05-15 22:30] VITALS: BP 144/76; PULSE 75; RESP 15; O2SAT 100
[2020-05-15 22:45] VITALS: PULSE 80; RESP 16
[2020-05-15 23:05] VITALS: BP 149/59; PULSE 76; RESP 16; TEMP 36.3; O2SAT 94; BMI 28.0
--- NOTE | 2020-05-15 23:20 | ADMGEN ---
This patient, Nery Bowie, was admitted to 2nd Floor Room 205-2. Patient oriented to hospital policies and general routines including ID bracelet, bed and alarms, visiting hours, pain management, procedures, bathroom and other care routines, personal items, smoking policy, room service/diet, and visiting hours. Valuables list has been completed. States he has no valuables just wallet with no money. Discussed diet and patient has fruit cup, cottage cheese, 2 packets of gaby crackers and peanut butter, a non-diet Michelle Mist and potatoe chips that he is consuming during interview. States he has squeezing chest pain to left side that is constant not accompanied by any other symptoms. Patient complains he is not getting enough food at [facility] and has recently lost 5 pounds. States he is on a diabetic diet at [facility]. Education provided on diet that limits carb consumption and caloric intake. Patient states he understands this. Skin is pink, warm and dry and patient is in no acute distress. Telemetry applied upon admission. Patient informed he should stand at bedside to void until test results back. Gait test provided. Patient has a stable shuffling gait. Discussed plan of care, need for additional blood work at around 0300 and telemetry WNL for patient, will plan DC back to [facility]. Information on how to activate the Rapid Response Team has been discussed. Patient/Family are encouraged to report perceived risks to care and to ask questions if they do not understand what they are told or what they should do.
--- NOTE | 2020-05-16 03:00 | PC.NURSE ---
Lab here and blood drawn; patient stood at bedside and voided clear light yellow urine. Tolerated activity well with no complaints of chest pain or discomfort.
[2020-05-16 03:32] LABS: Troponin I < 0.02 ng/mL (0.00-0.056)
--- NOTE | 2020-05-16 04:20 | PC.NURSE ---
Reviewed Troponin I results
[2020-05-16 04:45] VITALS: BP 128/53; PULSE 64; RESP 20; TEMP 36.4; O2SAT 94
--- NOTE | 2020-05-16 06:10 | PC.NURSE ---
States slept well; denies chest pain or discomfort.
[2020-05-16 07:45] VITALS: BP 139/60; PULSE 60; RESP 18; TEMP 36.2; O2SAT 97
[2020-05-16 07:58] LABS: Hematocrit 30.6 % (37.0-46.0); Mean Corpuscular HGB Conc 32.7 g/dL (32.0-36.0); Mean Corpuscular Hemoglobin 27.8 pg (27.0-31.0); Mean Platelet Volume 10.9 fl (8.7-11.0); Platelet Count Result 229 K/mm3 (150-420); Red Cell Distribution Width 15.9 % (11.6-14.4); White Blood Count 6.9 K/mm3 (4.8-10.8)
[2020-05-16 08:09] LABS: D Dimer 0.19 mg/L (0.19-0.50)
[2020-05-16 08:32] LABS: Alanine Aminotransferase 19 U/L (16-63); Albumin Level 2.9 g/dL (3.4-5.0); Alkaline Phosphatase 57 U/L (46-116); Anion Gap 11.9 mmol/L (7-16); Aspartate Amino Transferase 14 U/L (15-37); Bilirubin,Total 0.3 mg/dL (0.00-1.00); Blood Urea Nitrogen 40 mg/dL (7-18); Calcium 8.2 mg/dL (8.5-10.1); Carbon Dioxide 26 mmol/L (21-32); Chloride 110 mmol/L (98-108); Estimated CRCL calculation 49 ml/min; Estimated Glomerular Filt Rate > 60; Glucose 150 mg/dL (70-99); Osmolality Calculated 308 mOsm/kg (285-295); Potassium 4.9 mmol/L (3.5-5.1); Sodium 143 mmol/L (136-145); Total Protein 6.2 g/dL (6.4-8.2)
[2020-05-16 08:34] LABS: Troponin I < 0.02 ng/mL (0.00-0.056)
--- NOTE | 2020-05-16 09:23 | PM.SD ---
Same Day Admit/Disch: HPI History of Present Illness Chief complaint: CHEST PAIN Narrative: Nery Bowie is a 74 year old male that presented to [facility] ED complaining of chest pain.. Patient has a past medical history of AFib, anemia, diabetes, congestive heart failure, glaucoma, hyperlipidemia, hypertension, [place] valve prolapse, OCD, schizophrenia, and MR. this patient resides in a residential home in approximately 7:00 p.m. he started having chest pain. patient describes the pain as tightness on his heart does not radiate. He said he had the pain for approximately 30 minutes and decided to go to the [facility] Doctor who then referred him to transfer to our ED. patient noted he has never had this the past. He also noted shortness of breath which she has had in the past. at this time patient denies any chest pains or tightness Patient able to tolerate all meals , slept well and ambulate at baseline. Patient denies SOB, CP, palpitation, extremity numbness, lightheadness, dizziness, constipation, diarrhea, chills or fever. Patient agree that they are ready for discharge and discharge plan. [facility] Past Medical History Medical History Atrial fibrillation Postoperatively after CABG with bioprosthetic aortic valve replacement Chronic anemia Chronic anticoagulation With Coumadin INR 2.2 February 03, 2001 Diabetes mellitus, with long-term current use of insulin Diastolic congestive heart failure, NYHA class 2 Echocardiogram August 2019: 1. Left ventricular systolic function is normal, estimated at 60-65%. 2. There is mildly increased left ventricular wall thickness. 3. Left ventricular septal wall motion is abnormal with septal motion related to bundle branch block. 4. The left ventricular diastolic function is grade II diastolic dysfunction. 5. Probable perimembranous VSD peak velocity 5.3 m/sec 110 mmHg gradient, however, not well visualized on this study. 6. The bioprosthetic aortic valve is not well visualized. 7. There is no bioprosthetic aortic valve stenosis. 8. There is trace regurgitation of the bioprosthetic aortic valve. 9. The mitral valve has thickened leaflets. 10. There is trace mitral valve regurgitation. 11. Focal, predominantly fixed and calcified echodensity above anterior mitral valve leaflet. 12. Unable to estimate PA systolic pressure due to poor spectral resolution of tricuspid regurgitant jet. 13. Mild mitral annular calcification. Glaucoma Hyperlipidemia Hypertension Mitral valve prolapse OCD (obsessive compulsive disorder) Schizophrenia VSD (ventricular septal defect) Postoperative EST managed conservatively Surgical History Surgical History History of aortic valve replacement with bioprosthetic valve Hx of CABG 2 vessel CABG October 2011 with GONZALEZ to LAD and left radial artery graft to obtuse marginal branch Family History Family History Mother Diabetes mellitus Adopted (not a blood relative) Father Cancer Adopted (not a blood relative) Social History Social History Social History: The patient is adopted so family history is unknown. The patient's legal guardian is Aicha Rogers. He lives in a half-way in [place]. Primary care physician: Dr. Adrian Logan Code status: Full code Smoking packs per day: 1 Smoking cigarettes per day: 20.0 Years smoked: 35 Smoking pack-years: 35.00 Smoking status: Former smoker Tobacco type: cigarettes Second hand tobacco smoke exposure: Yes Smoking end date: 10/30/14 Alcohol intake: former Substance use: never Substance use type: does not use Additional living arrangements comments: Lives at [facility]. Additional occupation/education comments: Disabled. Gen
[2020-05-16] MEDS: ASPIRIN 81 MG ENTERIC TABLET PO (10:05)
[2020-05-16] MEDS: LORATADINE 10 MG TABLET PO (10:05)
[2020-05-16] MEDS: ATORVASTATIN 10 MG TABLET 20 MG PO (10:05)
[2020-05-16] MEDS: metFORMIN HCL XR 500 MG TAB.SR.24H PO (10:05)
[2020-05-16] MEDS: FENOFIBRATE NANOCRYSTALLIZED 145 MG TABLET PO (10:06)
[2020-05-16] MEDS: ISOSORBIDE MONONITRATE 30 MG TAB.ER.24H 15 MG PO (10:06)
[2020-05-16] MEDS: DIVALPROEX SODIUM SPRINKLE 125 MG CAP.DR 250 MG PO (10:06)
[2020-05-16] MEDS: SERTRALINE HCL 50 MG TABLET 100 MG PO (10:10)
[2020-05-16] MEDS: FUROSEMIDE 40 MG TABLET PO (10:11)
[2020-05-16] MEDS: PANTOPRAZOLE 40 MG TABLET PO (10:11)
--- NOTE | 2020-05-16 11:15 | PC.NURSE ---
Patient discharged back to [facility]. All discharge instructions and education reviewed with patient and personal care aide. No questions at present. IV site removed, tip intact, dressing applied to site. All belongings gathered and sent home with patient. Patient denies any questions on discharge.
== END 2020-05-16 11:15 ==
LOC: CHSED 22:07 → CHS2ND 22:15
PROVIDERS: Nurse Practitioner; Admitting Provider Emergency Medicine; Emergency Provider Emergency Medicine; PCP Family Medicine; Visit Provider Emergency Medicine
DX: R07.9 Chest pain, unspecified (principal); N28.9 Disorder of kidney and ureter, unspecified; I48.20 Chronic atrial fibrillation, unspecified; I11.0 Hypertensive heart disease with heart failure; I50.30 Unspecified diastolic (congestive) heart failure; I34.1 Nonrheumatic mitral (valve) prolapse; E11.9 Type 2 diabetes mellitus without complications; E78.5 Hyperlipidemia, unspecified; H40.9 Unspecified glaucoma; F42.9 Obsessive-compulsive disorder, unspecified; F20.9 Schizophrenia, unspecified; Z79.01 Long term (current) use of anticoagulants; Z95.1 Presence of aortocoronary bypass graft; Z95.4 Presence of other heart-valve replacement; Z79.4 Long term (current) use of insulin
CPT/HCPCS: 36415; 71045; 80053; 81001; 82553; 83735; 83880; 84484; 85025; 85027; 85380; 85610; 85730; 93005; 99283; 99285; A9270; G0378

== ENCOUNTER 2020-09-03 13:25 | Outpatient (RCR) | payer MEDICARE, SELFPAY ==
[2020-09-03 13:53] LABS: INR 2.2; Prothrombin Time 22.1 Seconds (9.64-11.0)
== END 2020-12-02 23:59 | disposition home or self-care (01) ==
LOC: CHSLAB 13:25
PROVIDERS: Visit Provider Internal Medicine Cardiovascular Disease
DX: Z79.01 Long term (current) use of anticoagulants (principal)
CPT/HCPCS: 36415; 85610

== ENCOUNTER 2020-10-02 08:28 | Outpatient (CLI) | payer MEDICARE, SELFPAY ==
[2020-10-02 08:50] LABS: Basophils Absolute Auto 0.03 K/mm3 (0.00-0.10); Basophils Percent Auto 0.3 % (0.0-1.0); Eosinophils Absolute Auto 0.34 K/mm3 (0.02-0.50); Eosinophils Percent Auto 3.5 % (1.0-6.0); Hematocrit 35.9 % (37.0-46.0); Hemoglobin 11.7 g/dL (12.4-15.3); Immature Granulocyte Absolute 0.03 K/mm3 (0.00-0.00); Immature Granulocyte Percent A 0.3 % (0.0-0.0); Lymphocytes Percent Auto 30.6 % (18.0-42.0); Mean Corpuscular HGB Conc 32.6 g/dL (32.0-36.0); Mean Corpuscular Hemoglobin 28.1 pg (27.0-31.0); Mean Corpuscular Volume 86.1 fL (78.0-102.0); Mean Platelet Volume 10.7 fl (8.7-11.0); Monocytes Absolute Auto 0.61 K/mm3 (0.10-0.90); Monocytes Percent Auto 6.2 % (2.0-11.0); Neutrophils Absolute Auto 5.8 K/mm3 (1.7-7.2); Neutrophils Percent Auto 59.1 % (50.0-70.0); Platelet Count Result 264 K/mm3 (150-420); Red Blood Count 4.17 M/mm3 (4.70-6.10); Red Cell Distribution Width 15.8 % (11.6-14.4); White Blood Count 9.8 K/mm3 (4.8-10.8)
[2020-10-02 09:00] LABS: Creatinine Urine 24.65 mg/dL (40-278); Hemoglobin A1C 7.2 % (<5.7); MALB Creatinine Ratio 52.7 mg/g (0-30); Microalbumin Urine Random < 13.0 mg/L
[2020-10-02 09:43] LABS: Alanine Aminotransferase 17 U/L (16-63); Albumin Level 3.6 g/dL (3.4-5.0); Alkaline Phosphatase 47 U/L (46-116); Anion Gap 9 mmol/L (8-16); Aspartate Amino Transferase 13 U/L (15-37); Bilirubin,Total 0.4 mg/dL (0.00-1.00); Blood Urea Nitrogen 39 mg/dL (7-18); Calcium 9.3 mg/dL (8.5-10.1); Carbon Dioxide 27 mmol/L (21-32); Chloride 108 mmol/L (98-108); Cholesterol 134 mg/dL (0-200); Estimated Glomerular Filt Rate > 60; Glucose 72 mg/dL (70-99); HDL Direct 48 mg/dL (40-60); LDL Cholesterol Calculated 69 mg/dL (<130); Osmolality Calculated 306 mOsm/kg (285-295); Sodium 144 mmol/L (136-145); Triglycerides 83 mg/dL (0-150)
== END 2020-10-02 08:29 | disposition home or self-care (01) ==
LOC: CHSLAB 08:31
PROVIDERS: PCP Nurse Practitioner Family; Visit Provider Nurse Practitioner Family
DX: E11.9 Type 2 diabetes mellitus without complications (principal)
CPT/HCPCS: 36415; 80053; 80061; 82043; 83036; 85025

== ENCOUNTER 2021-01-18 07:30 | Outpatient (CLI) | payer MEDICARE, MEDICAID, SELFPAY ==
--- NOTE | 2021-01-21 | ECHO_ITS ---
Patient Info Name: Nery Bowie Age: 75 years : 1945 Gender: Male Ht: 67 in Wt: 177 lbs BSA: 1.97 m2 HR: 61 bpm BP: 102 / 55 mmHg Heart Rhythm: Sinus Rhythm Exam Date: 01/21/2021 8:04 AM Exam Location: [facility] Patient Status: Outpatient Admit Date: 01/18/2021 Staff Ordering Physician: Luis Fernando Rodriguez MD Sterile Tech: Johana Spaulding RDCS Attending Provider: Luis Fernando Rodriguez MD Exam Type: CA echo doppler color flow Study Info Indications - BioProstetic AOV - VSD - LBBB - Coronary Artery Disease Complete two-dimensional, color flow and Doppler transthoracic echocardiogram is performed. Summary 1. Complete two-dimensional, color flow and Doppler transthoracic echocardiogram is performed. 2. Left ventricular systolic function is normal, estimated at 55-60%. 3. There is mildly increased left ventricular wall thickness. 4. The left ventricular diastolic function is grade II diastolic dysfunction. 5. Left atrial chamber dimension is mildly enlarged. 6. The bioprosthetic aortic valve is not well visualized. 7. There is trace regurgitation of the bioprosthetic aortic valve. 8. There is mild mitral valve regurgitation. 9. There is mild tricuspid valve regurgitation. 10. No pulmonary hypertension, estimated pulmonary arterial systolic pressure is 37 mmHg. 11. Perimembrenous VSD with peak velocity 5.1m/s. Left Ventricle Left ventricular chamber dimension is normal. Left ventricular systolic function is normal, estimated at 55-60%. There is mildly increased left ventricular wall thickness. Left ventricular septal wall motion is normal. The left ventricular diastolic function is grade II diastolic dysfunction. Right Ventricle Right ventricular chamber dimension is normal. Right ventricular systolic function is normal. Ventricular Septum Ventricular septal defect visualized by color flow imaging. Left Atria Left atrial chamber dimension is mildly enlarged. Right Atria Right atrial chamber dimension is normal. Atrial Septum Intact interatrial septum visualized by color flow imaging. Aortic Valve The bioprosthetic aortic valve is not well visualized. There is no bioprosthetic aortic valve stenosis. There is trace regurgitation of the bioprosthetic aortic valve. Pulmonic Valve The pulmonic valve is normal. There is no pulmonic valve stenosis. There is no pulmonic regurgitation. Mitral Valve The mitral valve has thickened leaflets. There is no mitral valve stenosis. There is mild mitral valve regurgitation. Tricuspid Valve The tricuspid valve leaflets are normal. There is no significant tricuspid valve stenosis. There is mild tricuspid valve regurgitation. No pulmonary hypertension, estimated pulmonary arterial systolic pressure is 37 mmHg. Pericardium/Pleural The pericardium appears normal. There is no pericardial effusion. Inferior Vena Cava Normal inferior vena cava with >50% collapse upon inspiration consistent with normal right atrial pressure, 5 mmHg. Aorta The aortic root size at the sinus of Valsalva is normal. The prox ascending aorta size is normal. Left Ventricular Outflow Tract Name Value Normal LVOT 2D LVOT Diameter
== END 2021-01-18 07:31 | disposition home or self-care (01) ==
PROVIDERS: Visit Provider Internal Medicine Cardiovascular Disease
DX: I25.10 Atherosclerotic heart disease of native coronary artery without angina pectoris (principal); Q21.0 Ventricular septal defect; I44.7 Left bundle-branch block, unspecified; Z95.1 Presence of aortocoronary bypass graft; Z95.3 Presence of xenogenic heart valve
CPT/HCPCS: 93306

== ENCOUNTER 2021-04-23 08:28 | Inpatient (IN) | payer MEDICARE, MEDICAID, SELFPAY ==
[2021-04-23] VITALS (58 sets, daily range): BP systolic 128–157; BP diastolic 50–76; PULSE 60–92; RESP 13–23; TEMP 35.9–36.3; O2SAT 95–100; BMI 27.1
--- NOTE | ~2021-04-23 | MR_ITS ---
EXAMINATION: MR brain/brain stem wo/w con DATE: 04/27/2021 14:57 INDICATION: Cerebral vascular accident. TECHNIQUE: Magnetic resonance imaging (MRI) of the brain and brainstem was performed without and with 15 mL MultiHance intravenous contrast. Sequences included sagittal and axial T1-weighted FSE, axial diffusion-weighted FS EPI, axial T2*-weighted GRE, axial T2-weighted FLAIR Propeller, and axial T2-we ighted Propeller. Postcontrast sequences included axial and coronal T1-weighted FSE. Apparent diffusi on coefficient (ADC) maps were created. COMPARISON: Head CT 04/23/2021 FINDINGS: There are scattered areas of nonspecific increased T2-weighted signal intensity in the cere bral white matter, which is within normal limits for the patient's age. There is an old lacunar infar ct in right thalamus. There is no intracranial hemorrhage, acute infarction, or abnormal intracranial mass lesion. The ventricles are normal in size. There is mild mucosal thickening in left maxillary s inus. There are likely changes of ocular lens replacement surgeries. There are small bilateral mastoi d effusions. IMPRESSION: 1. Old lacunar infarct in right thalamus. Reviewed, dictated and finalized at location A.
--- NOTE | ~2021-04-23 | CT_ITS ---
EXAMINATION: CT abdomen pelvis w con DATE: 04/24/2021 17:52 INDICATION: Left lower quadrant abdominal pain. Nausea and vomiting. TECHNIQUE: Computed tomography (CT) of the abdomen and pelvis was performed with 100 mL Omnipaque 350 intravenous contrast. Automated exposure control and iterative reconstruction technique were employe d. The dose-length product was 507.31 mGy-cm. COMPARISON: CT abdomen and pelvis 12/04/2006, chest CT 03/25/2017 FINDINGS: Calcified bilateral lung nodules are consistent with old granulomatous disease. There is a chronic small left pleural effusion with pleural thickening. There is chronic rounded atelectasis in left lower lobe. There is septal thickening in right middle lobe and right lower lobe with dependent mild airspace opacities in right lower lobe, likely a combination mild pulmonary edema and atelectasi s versus scarring. There are changes of aortic valve replacement. There is chronic sternal dehiscence . The liver, spleen, gallbladder, pancreas, and adrenal glands are normal. There is cortical thinning of the kidneys. The prostate is mildly enlarged. There are no dilated loops of bowel. The appendix i s normal. There are no pathologically enlarged lymph nodes. There is an umbilical hernia containing f at. There is no free intraperitoneal fluid. There is severe lumbar spondylosis. IMPRESSION: 1. Umbilical hernia containing fat. 2. Chronic small left pleural effusion with chronic pleural thickening and adjacent rounded atelectas is. 3. Right lung disease, which may be mild pulmonary edema and/or chronic interstitial lung disease. Reviewed, dictated and finalized at location A. IMPRESSION: 1. Umbilical hernia containing fat. 2. Chronic small left pleural effusion with chronic pleural thickening and lacey cent rounded atelectasis. 3. Right lung disease, which may be mild pulmonary edema and/or chronic interst itial lung disease.
--- NOTE | ~2021-04-23 | CT_ITS ---
EXAMINATION: CT brain wo con DATE: 04/23/2021 09:29 INDICATION: Altered mental status TECHNIQUE: Computed tomography (CT) of the head was performed without intravenous contrast. The dose- length product was 605.33 mGy-cm. Automated exposure control and iterative reconstruction technique w ere employed. COMPARISON: 09/17/2017 FINDINGS: Mild generalized atrophy. Chronic right thalamic infarction. There are scattered mild periv entricular and subcortical white matter changes, most likely related to small vessel ischemic disease (microangiopathy). No acute intracranial hemorrhage, infarction, mass or mass effect. Basilar cister ns are patent. No ventriculomegaly or midline shift. Paranasal sinuses and mastoids are pneumatized. No depressed skull fractures. IMPRESSION: 1. No acute intracranial abnormality. 2: Chronic right thalamic infarction. 3: Mild chronic age-related findings. Reviewed, dictated and finalized at location B.
--- NOTE | ~2021-04-23 | US_ITS ---
EXAMINATION: US carotid duplex BI DATE: 04/24/2021 19:17 INDICATION: Carotid bruit. TECHNIQUE: Grayscale, color Doppler, and pulsed Doppler images of the cervical carotid arteries were obtained. The degree of vessel stenosis is placed in one of the following categories: normal, <50%, 5 0-69%, >=70% but less than near-occlusion, near-occlusion, or total occlusion. Note that percent sten osis relative to normal distal artery lumen diameter is indirectly measured from velocity measurement s as described by Stephen, et al. Radiology 2003; [id number]. COMPARISON: None. FINDINGS: RIGHT: The right common carotid artery (CCA) peak systolic velocity (PSV) is 85 cm/s. The right internal car otid artery (ICA) PSV is 121 cm/s. The right ICA end-diastolic velocity (EDV) is 16 cm/s. The right I CA/CCA PSV ratio is 1.4. Grayscale and color Doppler images yield an estimate of <50% diameter reduct ion from plaque in the ICA. There is antegrade flow in the right vertebral artery. LEFT: The left CCA PSV is 118 cm/s. The left ICA PSV is 203 cm/s. The left ICA EDV is 22 cm/s. The left ICA /CCA PSV ratio is 1.7. Grayscale and color Doppler images yield an estimate of >=50% diameter reducti on from plaque in the ICA. There is antegrade flow in the left vertebral artery. IMPRESSION: 1. <50% stenosis in the right internal carotid artery. 2. 50-69% stenosis in the left internal carotid artery. Reviewed, dictated and finalized at location A.
--- NOTE | ~2021-04-23 | XR_ITS ---
XR chest 1V 04/23/2021 09:31 Indication: Altered mental status Procedure: AP view of the chest Comparison: Comparison to multiple prior studies sequentially, with oldest reviewed study dated 06/25. Findings: Status post median sternotomy for CABG. There is a prosthetic aortic valve. Cardiomegaly. S mall left pleural effusion. Mild interstitial edema. No pneumothorax. Impression: 1: Cardiomegaly with mild interstitial edema. 2: Small left pleural effusion. Reviewed, dictated and finalized at location B. Impression: 1: Cardiomegaly with mild interstitial edema. 2: Small left pleural effusion.
[2021-04-23 08:35] LABS: Glucose Point of Care 85 mg/dl (65-105)
--- NOTE | 2021-04-23 08:35 | ECG_ITS ---
SINUS RHYTHM LEFT BUNDLE BRANCH BLOCK BASELINE WANDER- V6 ABNORMAL ECG Electronically Signed On 04-24-2021 9:41:08 CDT by Brooks QUESADA
[2021-04-23 09:08] LABS: Basophils Percent Auto 0.5 % (0.2-1.2); Eosinophils Absolute Auto 0.2 K/mm3 (0-0.3); Eosinophils Percent Auto 3.5 % (0-4.4); Hematocrit 29.6 % (42.0-52.0); Hemoglobin 9.9 g/dL (14.0-18.0); Immature Granulocyte Absolute 0.01 K/mm3 (0.00-0.031); Immature Granulocyte Percent A 0.2 % (0-0.5); Lymphocytes Absolute Auto 2.54 K/mm3 (0.9-3.2); Lymphocytes Percent Auto 38.5 % (18.3-44.2); Mean Corpuscular HGB Conc 33.4 g/dl (32-36); Mean Corpuscular Hemoglobin 28.9 pg (26-34); Mean Corpuscular Volume 86.3 fl (80-100); Mean Platelet Volume 11.1 fl (7.4-10.4); Monocytes Absolute Auto 0.4 K/mm3 (0.1-0.6); Monocytes Percent Auto 6.1 % (2.6-8.5); Neutrophils Absolute Auto 3.4 K/mm3 (1.3-6.7); Neutrophils Percent Auto 51.2 % (45.5-73.1); Platelet Count Result 192 k/mm3 (150-375); Red Blood Count 3.43 M/mm3 (4.6-6.20); Red Cell Distribution Width 15.9 % (11.5-14.5); White Blood Count 6.6 K/mm3 (4.5-10.0)
--- NOTE | 2021-04-23 09:11 | ED.AMS ---
HPI - Altered Mental Status General Chief Complaint: Altered Mental Status Stated Complaint: SLURRED SPEECH Time Seen by Provider: 04/23/21 08:57 Source: patient, EMS and RN notes reviewed Mode of arrival: EMS History of Present Illness HPI narrative: Patient 75 years old white female came from a [facility] with slurred speech. I was able to speak to the nurse aide was taking care of the patient at the [facility], who told me that patient came to her office this morning to take his regular medication and his blood glucose was 53 at that time. She gave him some juice, 20 minutes later noticed that the patient had slurred speech, complaining of left-sided headache and heaviness of both arms, blood glucose at that time was 83. The nurse aide is telling me that patient speech is normally clear. And his blood glucose went down many times in the past sometimes down to 30 without any neurologic abnormalities. So the slurred speech today is new and patient never had it before. Patient walks without assistant toddler teacher. Currently patient main complaint is hungry and would like to eat. Denies any other symptoms. Blood glucose on arrival to the emergency room is 83 Related Data Home Medications Medication Instructions Recorded Confirmed Lantus U-100 Insulin 32 unit SUBCUT HS 02/04/20 05/15/20 aripiprazole 10 mg PO HS 02/04/20 05/15/20 aspirin [Aspirin Low Dose] 81 mg PO DAILY 02/04/20 05/15/20 atorvastatin 20 mg PO DAILY 02/04/20 05/15/20 divalproex 250 mg PO BID 02/04/20 05/15/20 fenofibrate nanocrystallized 145 mg PO DAILY 02/04/20 05/15/20 furosemide 40 mg PO DAILY 02/04/20 05/15/20 insulin lispro [Humalog KwikPen 02/04/20 05/15/20 Insulin] ipratropium-albuterol 3 ml INHALATION Q6H PRN 02/04/20 05/15/20 loratadine 10 mg PO DAILY 02/04/20 05/15/20 metformin 500 mg PO DAILY 02/04/20 05/15/20 pantoprazole 40 mg PO DAILY 02/04/20 05/15/20 warfarin 2.5 mg PO HS 02/04/20 05/15/20 warfarin 5 mg PO HS 04/07/20 07/17/20 isosorbide mononitrate 30 mg PO DAILY 04/23/21 oxybutynin chloride 5 mg PO DAILY 04/23/21 Allergies Allergy/AdvReac Type Severity Reaction Status Date / Time pear Allergy Unknown Verified 05/16/20 07:09 strawberry Allergy Unknown Verified 05/16/20 07:09 Review of Systems Review of Systems: Narrative: CONSTITUTIONAL: Denies fever, chills, or sweats. EYES: Denies visual changes, redness, or discharge. ENT: Denies rhinorrhea, congestion, sore throat, or otalgia. CARDIOVASCULAR: Denies chest pain, palpitations, or edema. RESPIRATORY: Denies cough or dyspnea. GASTROINTESTINAL: Denies abdominal pain, nausea, vomiting, or diarrhea. GENITOURINARY: Denies dysuria or hematuria. SKIN: Denies rash or itching. MUSCULOSKELETAL: Denies back pain, joint pain, or myalgia. NEUROLOGIC: Denies headache, numbness, or weakness. PSYCHIATRIC: Denies anxiety or depression. [facility] Past Medical History Medical History (Updated 04/23/21 @ 13:15 by Elisa Zavaleta MD) Atrial fibrillation Postoperatively after CABG with bioprosthetic aortic valve replacement Chronic anemia Chronic anticoagulation With Coumadin INR 2.2 February 03, 2001 Diabetes mellitus, with long-term current use of insulin Diastolic congestive heart failure, NYHA class 2 Echocardiogram August 2019: 1. Left ventricular systolic function is normal, estimated at 60-65%. 2. There is mildly increased left ventricular wall thickness. 3. Left ventricular septal wall motion is abnormal with septal motion related to bundle branch block. 4. The left ventricular diastolic function is grade II diastolic dysfunction. 5. Probable perimembranous VSD peak velocity 5.3 m/sec 110 mmHg gradient, however, not well visualized on this study. 6. The bioprosthetic aortic valve is not well visualized. 7. There is no bioprosthetic aortic valve stenosis. 8. There is trace regurgitation of the bioprosthetic aortic valve. 9. The mitral valve has thickened leaflets. 10. There is trace mitral valve regurgitat
[2021-04-23 09:26] LABS: Alanine Aminotransferase 18 U/L (4-50); Albumin Level 3.1 g/dL (3.5-5.1); Alkaline Phosphatase 44 U/L (38-126); Anion Gap 5 mmol/L (8-16); Aspartate Amino Transferase 29 U/L (17-59); Bilirubin,Total 0.2 mg/dL (0.2-1.3); Blood Urea Nitrogen 28 mg/dL (9-20); Calcium 8.3 mg/dL (8.4-10.2); Carbon Dioxide 25 mmol/L (22-30); Chloride 110 mmol/L (98-107); Estimated CRCL calculation 54 ml/min; Estimated Glomerular Filt Rate > 60; Glucose 79 mg/dL (75-110); Sodium 140 mmol/L (137-145)
[2021-04-23 10:05] LABS: Basophils Percent Auto 0.3 % (0.2-1.2); Eosinophils Absolute Auto 0.2 K/mm3 (0-0.3); Hematocrit 31.8 % (42.0-52.0); Hemoglobin 10.4 g/dL (14.0-18.0); Immature Granulocyte Absolute 0.02 K/mm3 (0.00-0.031); Immature Granulocyte Percent A 0.3 % (0-0.5); Lymphocytes Absolute Auto 2.44 K/mm3 (0.9-3.2); Mean Corpuscular HGB Conc 32.7 g/dl (32-36); Mean Corpuscular Hemoglobin 28.5 pg (26-34); Mean Corpuscular Volume 87.1 fl (80-100); Mean Platelet Volume 10.8 fl (7.4-10.4); Monocytes Absolute Auto 0.4 K/mm3 (0.1-0.6); Monocytes Percent Auto 5.9 % (2.6-8.5); Neutrophils Absolute Auto 3.7 K/mm3 (1.3-6.7); Neutrophils Percent Auto 54.5 % (45.5-73.1); Platelet Count Result 188 k/mm3 (150-375); Red Blood Count 3.65 M/mm3 (4.6-6.20); Red Cell Distribution Width 15.8 % (11.5-14.5); White Blood Count 6.8 K/mm3 (4.5-10.0)
[2021-04-23 10:07] LABS: Add Urine Microscopic? YES; Appearance Urine Clear (Clear); Bilirubin Urine Negative (Negative); Blood Urine Negative (Negative); Color Urine Yellow (Yellow); Glucose Urine UA Negative (Negative); Ketones Urine Negative (Negative); Leukocyte Esterase Ur Negative LEU/UL (Negative); Mucus Urine Rare /lpf; Nitrate Urine Negative (Negative); Protein Urine Negative (Negative); RBC Urine 0-2 /hpf (0-2); Specific Grav Ur 1.011 (1.001-1.035); WBC Urine 0-3 /hpf
[2021-04-23 10:15] LABS: Alanine Aminotransferase 19 U/L (4-50); Albumin Level 3.3 g/dL (3.5-5.1); Alkaline Phosphatase 47 U/L (38-126); Anion Gap 4 mmol/L (8-16); Aspartate Amino Transferase 29 U/L (17-59); Bilirubin,Total 0.3 mg/dL (0.2-1.3); Blood Urea Nitrogen 27 mg/dL (9-20); Calcium 8.5 mg/dL (8.4-10.2); Carbon Dioxide 25 mmol/L (22-30); Chloride 111 mmol/L (98-107); Estimated CRCL calculation 54 ml/min; Estimated Glomerular Filt Rate > 60; Glucose 78 mg/dL (75-110); Sodium 140 mmol/L (137-145)
[2021-04-23 10:16] LABS: Amphetamine Screen Urine Negative (Negative); Barbiturate Screen Urine Negative (Negative); Benzodiazepines Screen Urine Negative (Negative); Cannabinoid Screen Urine Negative (Negative); Cocaine Screen Urine Negative (Negative); Methadone Screen Urine Negative (Negative); Opiate Screen Urine Negative (Negative); Phencyclidine Screen Urine Negative (Negative)
[2021-04-23 10:19] LABS: INR 2.1; Partial Thromboplastin Time 40.5 SECONDS (22.3-36.8); Prothrombin Time 24.3 Seconds (11.1-14.7)
[2021-04-23 10:27] LABS: Troponin I 0.024 ng/mL (0.000-0.034)
[2021-04-23] MEDS: ASPIRIN 81 MG CHEWABLE TABLET 324 MG PO (14:43)
--- NOTE | 2021-04-23 14:44 | PC.NURSE ---
pt states headache is improved. resting quietly on stretcher. no distress noted.
--- NOTE | 2021-04-23 16:51 | ADMGEN ---
This patient, Nery Bowie, was admitted to 2 Medical Room 256-. Patient/family oriented to hospital policies and general routines including ID bracelet, bed and alarms, visiting hours, pain management, procedures, bathroom and other care routines, personal items, smoking policy, room service/diet, and visiting hours. Information on how to activate the Rapid Response Team has been discussed. Patient/Family are encouraged to report perceived risks to care and to ask questions if they do not understand what they are told or what they should do. Report received from ALBERT Tovar.
--- NOTE | 2021-04-23 17:00 | PM.IMHP ---
H&P: HPI History of Present Illness Date/Time: 04/23/21 17:00 Chief Complaint: Altered mental status. Narrative: This is a pleasant 75-year-old male with coronary artery disease, diabetes, hypertension, and dyslipidemia who presented to the emergency department earlier today via EMS from his retirement for evaluation of altered mental status. At the time of my evaluation he is alert and oriented and is able to provide a good history. He tells me that he was having symptoms of hypoglycemia this morning and was slurring his speech. His Accu-Chek was reportedly 53 but did improve to 83 after drinking some juice. At that time he then started to complain of a left-sided headache and heaviness in both arms although he felt the left side was affected more. Despite having a glucose that has been stable around 80 since arrival to the emergency department, he continued to have slurred speech and is being admitted for TIA work-up. At the time my evaluation he reports being back to normal and has no complaints. He specifically denies current headache, auditory visual changes, focal weakness, paresthesias, chest pain, palpitations, dysarthria, and dysphagia. Review of Systems Review of Systems: Narrative: 12 systems were reviewed with pertinent positives and negatives as per HPI. No fever, chills, or sweats. No recent cold or flu symptoms. He has lost between 25 and 30 pounds over last couple of months unintentionally which he attributes to his diabetes although I am not sure it has been poorly controlled as he thinks. He occasionally has blurry vision which she attributes to diabetic retinopathy. He does have neuropathy in his lower legs which is chronic. No nausea, vomiting, or diarrhea. No dysuria. Except as documented, all other systems were reviewed and are negative. [facility] Past Medical History Medical History (Updated 04/23/21 @ 17:21 by Roxanne White PA-C) Atrial fibrillation Postoperatively after CABG with bioprosthetic aortic valve replacement. Chronic anemia Chronic anticoagulation Coumadin. Coronary artery disease (~10/2011) Status post CABG. Diabetes mellitus, with long-term current use of insulin Hemoglobin A1c was 7.2% in September 2020. Diastolic congestive heart failure, NYHA class 2 Echocardiogram August 2019: 1. Left ventricular systolic function is normal, estimated at 60-65%. 2. There is mildly increased left ventricular wall thickness. 3. Left ventricular septal wall motion is abnormal with septal motion related to bundle branch block. 4. The left ventricular diastolic function is grade II diastolic dysfunction. 5. Probable perimembranous VSD peak velocity 5.3 m/sec 110 mmHg gradient, however, not well visualized on this study. 6. The bioprosthetic aortic valve is not well visualized. 7. There is no bioprosthetic aortic valve stenosis. 8. There is trace regurgitation of the bioprosthetic aortic valve. 9. The mitral valve has thickened leaflets. 10. There is trace mitral valve regurgitation. 11. Focal, predominantly fixed and calcified echodensity above anterior mitral valve leaflet. 12. Unable to estimate PA systolic pressure due to poor spectral resolution of tricuspid regurgitant jet. 13. Mild mitral annular calcification. Glaucoma Hyperlipidemia Hypertension Mitral valve prolapse Obsessive compulsive disorder Schizophrenia Ventricular septal defect Managed conservatively. Surgical History Surgical History (Updated 04/23/21 @ 17:17 by Roxanne White PA-C) History of aortic valve replacement with bioprosthetic valve History of bilateral cataract extraction History of coronary artery bypass graft x 2 (10/2011) GONZALEZ to LAD, left radial graft to obtuse marginal. Hx of CABG 2 vessel CABG October 2011 with GONZALEZ to LAD and left radial artery graft to obtuse marginal branch Family History Family History Mother Diabetes mellitu
[2021-04-23 17:39] LABS: Glucose Point of Care 173 mg/dl (65-105)
[2021-04-23 18:49] LABS: INR 1.9; Prothrombin Time 22.8 Seconds (11.1-14.7)
[2021-04-23 19:04] LABS: Hemoglobin A1C 6.4 % (<5.7)
--- NOTE | 2021-04-23 19:28 | PC.NURSE ---
Contacted family and alf regarding patient artificial heart valve. The alf, patient and POA were unsure what type of heart valve the patient had.
[2021-04-23 19:43] LABS: Iron 101 ug/dL (49-181)
[2021-04-23 19:53] LABS: Percent Iron Saturation 29 % (20-50)
[2021-04-23 19:56] LABS: Folic Acid 6.2 ng/mL (2.76->20)
[2021-04-23 21:37] LABS: Glucose Point of Care 256 mg/dl (65-105)
[2021-04-23] MEDS: DIVALPROEX SODIUM SPRINKLE 125 MG CAP.DR 250 MG PO (22:43)
[2021-04-23] MEDS: OXYBUTYNIN CHLORIDE 5 MG TABLET PO (22:44)
[2021-04-23] MEDS: ARIPiprazole 10 MG TABLET PO (22:44)
[2021-04-23] MEDS: INSULIN GLARGINE (*BKC) 100 UNITS/ML 25 UNITS SUB-Q (22:47)
[2021-04-24] VITALS (14 sets, daily range): BP systolic 120–156; BP diastolic 53–56; PULSE 58–84; RESP 16–20; TEMP 36.2–36.6; O2SAT 94–99
[2021-04-24 05:27] LABS: Glucose Point of Care 181 mg/dl (65-105)
[2021-04-24 05:56] LABS: Hematocrit 32.5 % (42.0-52.0); Hemoglobin 10.7 g/dL (14.0-18.0); Mean Corpuscular HGB Conc 32.9 g/dl (32-36); Mean Corpuscular Hemoglobin 28.7 pg (26-34); Mean Corpuscular Volume 87.1 fl (80-100); Mean Platelet Volume 11.2 fl (7.4-10.4); Platelet Count Result 182 k/mm3 (150-375); Red Blood Count 3.73 M/mm3 (4.6-6.20); Red Cell Distribution Width 15.8 % (11.5-14.5); White Blood Count 6.9 K/mm3 (4.5-10.0)
[2021-04-24 06:03] LABS: INR 1.9; Prothrombin Time 22.3 Seconds (11.1-14.7)
[2021-04-24 06:05] LABS: Anion Gap 4 mmol/L (8-16); Blood Urea Nitrogen 25 mg/dL (9-20); Calcium 8.8 mg/dL (8.4-10.2); Carbon Dioxide 25 mmol/L (22-30); Chloride 107 mmol/L (98-107); Cholesterol 112 mg/dL (0-200); Estimated CRCL calculation 60 ml/min; Estimated Glomerular Filt Rate > 60; Glucose 165 mg/dL (75-110); HDL Direct 36 mg/dL; Magnesium 2.1 mg/dL (1.6-2.3); Potassium 4.7 mmol/L (3.4-5.0); Sodium 136 mmol/L (137-145); Triglycerides 112 mg/dL (<150)
[2021-04-24 06:15] LABS: LDL Cholesterol Direct 51 mg/dL
[2021-04-24 08:13] LABS: Glucose Point of Care 181 mg/dl (65-105)
[2021-04-24 09:46] LABS: Glucose Point of Care 146 mg/dl (65-105)
[2021-04-24] MEDS: DIVALPROEX SODIUM SPRINKLE 125 MG CAP.DR 250 MG PO ×2 (09:48→21:38)
[2021-04-24] MEDS: LORATADINE 10 MG TABLET PO (09:48)
[2021-04-24] MEDS: FUROSEMIDE 40 MG TABLET PO (09:48)
[2021-04-24] MEDS: ATORVASTATIN 20 MG TABLET PO (09:48)
[2021-04-24] MEDS: ASPIRIN 81 MG ENTERIC TABLET PO (09:48)
[2021-04-24] MEDS: FENOFIBRATE NANOCRYSTALLIZED 145 MG TABLET PO (09:48)
[2021-04-24] MEDS: PANTOPRAZOLE 40 MG TABLET PO (09:48)
[2021-04-24] MEDS: ISOSORBIDE MONONITRATE 30 MG TAB.ER.24H PO (09:48)
[2021-04-24] MEDS: ONDANSETRON INJ 4 MG/2 ML VIAL IV PUSH (11:03)
[2021-04-24] MEDS: ACETAMINOPHEN 500 MG TABLET 1000 MG PO (12:21)
[2021-04-24 12:39] LABS: Glucose Point of Care 199 mg/dl (65-105)
--- NOTE | 2021-04-24 12:46 | P.PNIM_ITS ---
Progress Note: A&P Assessment and Plan (1) Neurological symptoms: Code(s): R29.90 - Unspecified symptoms and signs involving the nervous system Status: Acute Assessment and Plan: * The patient presented with slurred speech and heaviness in both arms, more so on the left, with weak left hand database reporting consultant when compared to the right. * Some of his symptoms may be explained by the hypoglycemia however slurred speech and database reporting consultant weakness have persisted despite euglycemia. * Given evidence of old infarct on brain CT will obtain an * Brain MRI ordered * Echocardiogram pending * Carotid Doppler ordered * Neurologic checks every 4 hours. * NIH today was 1-2 from possible uneven smile, little droopy on the left * Neurology consult thank you * Speech is better, but can be slurred when he is talking fast * Aspirin 81mg PO daily * Warfarin 2.5 M// and 5mg PO /// * INR is 1.9, will trend INR (2) Hypoglycemia: Code(s): E16.2 - Hypoglycemia, unspecified Status: Acute Assessment and Plan: * Glucose last night was 53, could be from weightloss and dosing of basal insulin * Corrected with hypoglycemic protocol * Glucose this am was 165 * A1C 6.4 * Accu Checks AC/HS * Hypoglycemic protocol * insulin sliding scale * Continue home Lantus 25 units SQ HS (3) Diabetes mellitus, with long-term current use of insulin: Qualifiers: Diabetes mellitus complication status: without complication Diabetes mellitus type: type 2 Qualified Code(s): E11.9 - Type 2 diabetes mellitus without complications; Z79.4 - 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 (4) Diastolic congestive heart failure, NYHA class 2: Qualifiers: Congestive heart failure chronicity: chronic Qualified Code(s): I50.32 - Chronic diastolic (congestive) heart failure Code(s): I50.30 - Unspecified diastolic (congestive) heart failure Status: Acute Assessment and Plan: * He has trace periankle edema * mild interstitial edema on chest x-ray * Avoid IV fluids. * Continue 40mg p.o. Lasix. (5) Hypertension: Qualifiers: Hypertension type: essential hypertension Qualified Code(s): I10 - Essential (primary) hypertension Code(s): I10 - Essential (primary) hypertension Status: Acute Assessment and Plan: * BP 120/55 * Continue home isosorbide 30mg PO daily * Trend BP * Adjust medications as needed (6) Chronic anticoagulation: Code(s): Z79.01 - intermediate (current) use of anticoagulants Status: Acute Assessment and Plan: * Continue warfarin, * INR is therapeutic * Today 1.9 * Will trend INR * Labs in the am (7) Hyperlipidemia: Code(s): E78.5 - Hyperlipidemia, unspecified Status: Acute Assessment and Plan: * Continue home Fenofibrate 145mg PO daily * Lipid panel Triglycerides 112, Cholesterol 112, LDL 51, HDL 36 (8) Schizophrenia: Code(s): F20.9 - Schizophrenia, unspecified Status: Acute Assessment and Plan: * Continue home Abilify 10mg PO HS and Depakote 250mg PO BID (9) Abdominal pain: Qualifiers: Abdominal location: left lower quadrant Qualified Code(s): R10
--- NOTE | 2021-04-24 12:46 | PM.IMPN ---
Progress Note: A&P Assessment and Plan (1) Neurological symptoms: Code(s): R29.90 - Unspecified symptoms and signs involving the nervous system Status: Acute Assessment and Plan: The patient presented with slurred speech and heaviness in both arms, more so on the left, with weak left hand editorial clerk when compared to the right. Some of his symptoms may be explained by the hypoglycemia however slurred speech and editorial clerk weakness have persisted despite euglycemia. Given evidence of old infarct on brain CT will obtain an Brain MRI ordered Echocardiogram pending Carotid Doppler ordered Neurologic checks every 4 hours. NIH today was 1-2 from possible uneven smile, little droopy on the left Neurology consult thank you Speech is better, but can be slurred when he is talking fast Aspirin 81mg PO daily Warfarin 2.5 M/W/ and 5mg PO [place]///Sa INR is 1.9, will trend INR (2) Hypoglycemia: Code(s): E16.2 - Hypoglycemia, unspecified Status: Acute Assessment and Plan: Glucose last night was 53, could be from weightloss and dosing of basal insulin Corrected with hypoglycemic protocol Glucose this am was 165 A1C 6.4 Accu Checks AC/HS Hypoglycemic protocol insulin sliding scale Continue home Lantus 25 units SQ HS (3) Diabetes mellitus, with long-term current use of insulin: Qualifiers: Diabetes mellitus complication status: without complication Diabetes mellitus type: type 2 Qualified Code(s): E11.9 - Type 2 diabetes mellitus without complications; Z79.4 - [facility] (current) use of insulin Code(s): E11.9 - Type 2 diabetes mellitus without complications; Z79.4 - [facility] (current) use of insulin Status: Acute Assessment and Plan: Plan is as detailed above. (4) Diastolic congestive heart failure, NYHA class 2: Qualifiers: Congestive heart failure chronicity: chronic Qualified Code(s): I50.32 - Chronic diastolic (congestive) heart failure Code(s): I50.30 - Unspecified diastolic (congestive) heart failure Status: Acute Assessment and Plan: He has trace periankle edema mild interstitial edema on chest x-ray Avoid IV fluids. Continue 40mg p.o. Lasix. 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 Status: Acute Assessment and Plan: Continue warfarin, INR is therapeutic Today 1.9 Will trend INR Labs in the am (7) Hyperlipidemia: Code(s): E78.5 - Hyperlipidemia, unspecified Status: Acute Assessment and Plan: Continue home Fenofibrate 145mg PO daily Lipid panel Triglycerides 112, Cholesterol 112, LDL 51, HDL 36 (8) Schizophrenia: Code(s): F20.9 - Schizophrenia, unspecified Status: Acute Assessment and Plan: Continue home Abilify 10mg PO HS and Depakote 250mg PO BID (9) Abdominal pain: Qualifiers: Abdominal location: left lower quadrant Qualified Code(s): R10.32 - Left lower quadrant pain Code(s): R10.9 - Unspecified abdominal pain Status: Acute Assessment and Plan: Active vomiting LLQ pain Hypoactive bowel sounds Bisacodyl suppository CT abd pelvis NPO diet Subjective Date/time seen: 04/24/21 10:25 Interval history: This is a pleasant 75-year-old male with coronary artery disease, diabetes, hypertension, and dyslipidemia who presented to the emergency department earlier today [facility] for evaluation of altered mental status. This
--- NOTE | 2021-04-24 13:16 | WPDNEURCNPN ---
Assessment and Plan Additional Plan Most likely hypoglycemic episode comorbidities as mentioned above the possibility of TIA is also likely but again patient is already on anticoagulation therapy and the awaiting for the MRI confirm whether he has had a new stroke or not further discussion will be made after the MRI report is obtained in the meantime treatment will be continued as such Consult date: 04/24/21 Time Seen: 12:30 HPI: Nery Bowie is a 75 year old male admitted to the hospital with the complaints of change in the mental status in addition to the ongoing diagnosis of 1. Coronary artery disease 2. Diabetes mellitus 3. Hypertension 4. Dyslipidemia he was brought to the emergency room by the EMS from his halfway for the complaints of change in the mental status at the time of initial evaluation by the hospitalist he was awake alert oriented and was able to provide good history but mentioned that he was having symptoms of hypoglycemia in the morning with slurring of the speech and at that time his blood sugar was reportedly 53 though it did improve to 83 after drinking some juices at the time of initial evaluation he was complaining of left-sided headaches and heaviness in both upper extremities and also he was having some slurred speech that is why he was admitted for TIA workup. Past history is consistent with chronic anticoagulation therapy as well because of the underlying coronary artery disease with history of CABG and as mentioned before insulin-dependent diabetes mellitus and diastolic congestive heart failure also history of aortic valve replacement with bioprosthetic valve mitral valve prolapse and OCD with schizophrenia along with VSD he has history of 35 his smoking pack years but at present former smoker and has been not been drinking alcohol Review of Systems Review of Systems: All systems reviewed & are unremarkable except as noted in HPI and below PMFSH Past Medical History Medical History Atrial fibrillation Postoperatively after CABG with bioprosthetic aortic valve replacement. Chronic anemia Chronic anticoagulation Coumadin. Coronary artery disease (~10/2011) Status post CABG. Diabetes mellitus, with long-term current use of insulin Hemoglobin A1c was 7.2% in September 2020. Diastolic congestive heart failure, NYHA class 2 Echocardiogram August 2019: 1. Left ventricular systolic function is normal, estimated at 60-65%. 2. There is mildly increased left ventricular wall thickness. 3. Left ventricular septal wall motion is abnormal with septal motion related to bundle branch block. 4. The left ventricular diastolic function is grade II diastolic dysfunction. 5. Probable perimembranous VSD peak velocity 5.3 m/sec 110 mmHg gradient, however, not well visualized on this study. 6. The bioprosthetic aortic valve is not well visualized. 7. There is no bioprosthetic aortic valve stenosis. 8. There is trace regurgitation of the bioprosthetic aortic valve. 9. The mitral valve has thickened leaflets. 10. There is trace mitral valve regurgitation. 11. Focal, predominantly fixed and calcified echodensity above anterior mitral valve leaflet. 12. Unable to estimate PA systolic pressure due to poor spectral resolution of tricuspid regurgitant jet. 13. Mild mitral annular calcification. Glaucoma Hyperlipidemia Hypertension Mitral valve prolapse Obsessive compulsive disorder Schizophrenia Ventricular septal defect Managed conservatively. Surgical History Surgical History History of aortic valve replacement with bioprosthetic valve History of bilateral cataract extraction History of coronary artery bypass graft x 2 (10/2011) GONZALEZ to LAD, left radial graft to obtuse marginal. Hx of CABG 2 vessel CABG October 2011 with GONZALEZ to LAD and left radial artery graft to obtuse marginal branch Family History Fa
[2021-04-24] MEDS: ALBUTEROL SULFATE NEB 2.5 MG/0.5 ML INH INHALATION ×2 (13:48→20:26)
[2021-04-24] MEDS: IPRATROPIUM BR 0.02% INH SOLN 0.5 MG/2.5 ML VIAL INHALATION ×2 (13:48→20:27)
[2021-04-24] MEDS: DOCUSATE SODIUM 100 MG CAPSULE PO ×2 (14:05→21:38)
[2021-04-24] MEDS: polyethylene glycoL 3350 17 GM POWD.PACK PO (14:05)
[2021-04-24] MEDS: MAGNESIUM HYDROXIDE SUSP 30 ML UDC PO (15:26)
[2021-04-24] MEDS: BISACODYL 10 MG SUPPOSITORY RECTAL (15:27)
[2021-04-24] MEDS: WARFARIN (*PBKC) 5 MG TABLET PO (17:02)
[2021-04-24 17:08] LABS: Glucose Point of Care 168 mg/dl (65-105)
--- NOTE | 2021-04-24 17:22 | PC.NURSE ---
Pt to CT scan per wheelchair.
--- NOTE | 2021-04-24 17:27 | ECHO_ITS ---
Patient Info Name: Nery Bowie Age: 75 years : 1945 Gender: Male Ht: 67 in Wt: 172 lbs BSA: 1.94 m2 HR: 65 bpm BP: 120 / 55 mmHg Heart Rhythm: Sinus Rhythm Technical Quality: Poor Exam Date: 04/24/2021 8:55 AM Exam Location: [facility] Patient Status: Inpatient Admit Date: 04/23/2021 Staff Ordering Physician: Roxanne White PA-C Receiving Supervisor: HIGINIO Attending Provider: Atif Bean Referring Physician: Cindy LU; Exam Type: CA echo dop color flow w con Study Info Complete two-dimensional, color flow and Doppler transthoracic echocardiogram is performed with contrast to opacify the left ventricle and to improve the deliniation of the left ventricle endocardial borders. Contrast/Agitated Saline Contrast/Ag. Saline: Definity Amount: 4.00 ml Summary 1. Perimembranous VSD peak velocity 4.9 m/sec with a gradient of 97 mmHg. 2. Left ventricular chamber dimension is normal. 3. Left ventricular systolic function is normal, estimated at 55-60%. 4. There is mildly increased left ventricular wall thickness. 5. Left ventricular septal wall motion is abnormal with septal motion related to bundle branch block. 6. The left ventricular diastolic function is grade II diastolic dysfunction. 7. Right ventricular chamber dimension is probably normal, although not well visualized in several views. . 8. Right ventricular systolic function is normal with a TAPSE of 1.6. 9. There is mild mitral valve regurgitation. 10. There is mild regurgitation of the bioprosthetic aortic valve. 11. The bioprosthetic aortic valve leaflets are not well visualized. 12. Normal bioprosthetic aortic valve gradients. 13. There is mild tricuspid valve regurgitation. 14. No pulmonary hypertension, estimated pulmonary arterial systolic pressure is 21 mmHg. Recommendations * Consider transesophageal echocardiogram if clinically indicated or if stroke confirmed. Left Ventricle Left ventricular chamber dimension is normal. Left ventricular systolic function is normal, estimated at 55-60%. There is mildly increased left ventricular wall thickness. Left ventricular septal wall motion is abnormal with septal motion related to bundle branch block. The left ventricular diastolic function is grade II diastolic dysfunction. Right Ventricle Right ventricular chamber dimension is probably normal, although not well visualized in several views. . Right ventricular systolic function is normal with a TAPSE of 1.6. Ventricular Septum Perimembranous VSD peak velocity 4.9 m/sec with a gradient of 97 mmHg. Left Atria Left atrial chamber dimension is normal. Right Atria Right atrial chamber dimension is mildly enlarged. Aortic Valve The bioprosthetic aortic valve leaflets are not well visualized. There is mild regurgitation of the bioprosthetic aortic valve. Normal bioprosthetic aortic valve gradients. Pulmonic Valve The pulmonic valve is normal. There is no pulmonic regurgitation. Mitral Valve The mitral valve has thickened leaflets. There is mild mitral valve regurgitation. The mitral valve annulus is mildly calcified. Tricuspid Valve The tricuspid valve leaflets are normal. There is mild tricuspid valve regurgitation. No pulmonary hypertension, estimated pulmonary arterial systolic pressure is 21 mmHg. Pericardium/Pleural The pericardium appears normal. There is no pericardial effusion. Inferior Vena Cava Norm
[2021-04-24 21:02] LABS: Glucose Point of Care 156 mg/dl (65-105)
[2021-04-24] MEDS: ARIPiprazole 10 MG TABLET PO (21:38)
[2021-04-24] MEDS: OXYBUTYNIN CHLORIDE 5 MG TABLET PO (21:38)
[2021-04-25] VITALS (15 sets, daily range): BP systolic 97–140; BP diastolic 44–53; PULSE 54–88; RESP 16–21; TEMP 36.2–36.9; O2SAT 95–100
[2021-04-25] MEDS: IPRATROPIUM BR 0.02% INH SOLN 0.5 MG/2.5 ML VIAL INHALATION ×4 (01:38→21:22)
[2021-04-25] MEDS: ALBUTEROL SULFATE NEB 2.5 MG/0.5 ML INH INHALATION ×4 (01:38→21:22)
[2021-04-25 05:26] LABS: Glucose Point of Care 129 mg/dl (65-105)
[2021-04-25 05:46] LABS: Basophils Percent Auto 0.3 % (0.2-1.2); Eosinophils Absolute Auto 0.1 K/mm3 (0-0.3); Eosinophils Percent Auto 1.4 % (0-4.4); Hematocrit 31.1 % (42.0-52.0); Hemoglobin 10.4 g/dL (14.0-18.0); Immature Granulocyte Absolute 0.04 K/mm3 (0.00-0.031); Immature Granulocyte Percent A 0.4 % (0-0.5); Lymphocytes Absolute Auto 2.89 K/mm3 (0.9-3.2); Lymphocytes Percent Auto 28.8 % (18.3-44.2); Mean Corpuscular HGB Conc 33.4 g/dl (32-36); Mean Corpuscular Hemoglobin 28.6 pg (26-34); Mean Corpuscular Volume 85.4 fl (80-100); Mean Platelet Volume 10.5 fl (7.4-10.4); Monocytes Absolute Auto 0.7 K/mm3 (0.1-0.6); Monocytes Percent Auto 7.1 % (2.6-8.5); Neutrophils Absolute Auto 6.2 K/mm3 (1.3-6.7); Platelet Count Result 197 k/mm3 (150-375); Red Blood Count 3.64 M/mm3 (4.6-6.20); Red Cell Distribution Width 15.4 % (11.5-14.5)
[2021-04-25 05:53] LABS: INR 1.4; Prothrombin Time 18.2 Seconds (11.1-14.7)
[2021-04-25 05:57] LABS: Alanine Aminotransferase 17 U/L (4-50); Albumin Level 3.1 g/dL (3.5-5.1); Alkaline Phosphatase 36 U/L (38-126); Anion Gap 4 mmol/L (8-16); Aspartate Amino Transferase 24 U/L (17-59); Bilirubin,Total 0.3 mg/dL (0.2-1.3); Blood Urea Nitrogen 22 mg/dL (9-20); Calcium 8.4 mg/dL (8.4-10.2); Carbon Dioxide 25 mmol/L (22-30); Chloride 109 mmol/L (98-107); Estimated CRCL calculation 54 ml/min; Estimated Glomerular Filt Rate > 60; Glucose 125 mg/dL (75-110); Magnesium 2.3 mg/dL (1.6-2.3); Potassium 4.3 mmol/L (3.4-5.0); Sodium 138 mmol/L (137-145)
[2021-04-25 07:54] LABS: Glucose Point of Care 121 mg/dl (65-105)
[2021-04-25] MEDS: DIVALPROEX SODIUM SPRINKLE 125 MG CAP.DR 250 MG PO ×2 (09:01→20:13)
[2021-04-25] MEDS: polyethylene glycoL 3350 17 GM POWD.PACK PO (09:01)
[2021-04-25] MEDS: PANTOPRAZOLE 40 MG TABLET PO (09:01)
[2021-04-25] MEDS: ATORVASTATIN 20 MG TABLET PO (09:01)
[2021-04-25] MEDS: FUROSEMIDE 40 MG TABLET PO (09:01)
[2021-04-25] MEDS: LORATADINE 10 MG TABLET PO (09:01)
[2021-04-25] MEDS: FENOFIBRATE NANOCRYSTALLIZED 145 MG TABLET PO (09:01)
[2021-04-25] MEDS: ISOSORBIDE MONONITRATE 30 MG TAB.ER.24H PO (09:01)
[2021-04-25] MEDS: ASPIRIN 81 MG ENTERIC TABLET PO (09:01)
[2021-04-25] MEDS: ACETAMINOPHEN 500 MG TABLET 1000 MG PO (09:23)
[2021-04-25] MEDS: DOCUSATE SODIUM LIQ 100 MG/10 ML UDC PO ×2 (10:40→20:13)
--- NOTE | 2021-04-25 11:08 | P.PNIM_ITS ---
Progress Note: A&P Assessment and Plan (1) Neurological symptoms: Code(s): R29.90 - Unspecified symptoms and signs involving the nervous system Status: Acute Assessment and Plan: The patient presented with slurred speech and heaviness in both arms, more so on the left, with weak left hand metal bonder when compared to the right. Some of his symptoms may be explained by the hypoglycemia however slurred speech and metal bonder weakness have persisted despite euglycemia. 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 Awaiting confirmation of bioprosthetic valve prior to proceeding. * Echocardiogram reviewed with normal EF and mild MR and mild TR * Carotid Doppler with <50% stenosis of right ICA and 50-69% stenosis of left ICA * Appreciate neurology consultation * Continue Aspirin 81mg PO daily (2) Hypoglycemia: Code(s): E16.2 - Hypoglycemia, unspecified Status: Acute Assessment and Plan: Glucose was low at 53 en route, per EMS report. Could be from weight loss and dosing of basal insulin. Blood sugars have been stable during hospitalization. * Continue accuchecks, SSI, and hypoglycemic protocol * Continue home Lantus at reduced dose of 25 units HS (3) Diabetes mellitus, with long-term current use of insulin: Qualifiers: Diabetes mellitus type: type 2 Diabetes mellitus complication status: without complication Qualified Code(s): E11.9 - Type 2 diabetes mellitus without complications; Z79.4 - intermediate card tender (current) use of insulin Code(s): E11.9 - Type 2 diabetes mellitus without complications; Z79.4 - intermediate card tender (current) use of insulin Status: Acute Assessment and Plan: A1c is 6.4 * Plan is as detailed above. * Metformin is on hold (4) Diastolic congestive heart failure, NYHA class 2: Qualifiers: Congestive heart failure chronicity: chronic Qualified Code(s): I50.32 - Chronic diastolic (congestive) heart failure Code(s): I50.30 - Unspecified diastolic (congestive) heart failure Status: Acute Assessment and Plan: He had trace periankle edema with mild interstitial edema on chest x-ray. Lung exam is clear and he is asymptomatic. * Avoid IV fluids. * Continue 40mg p.o. Lasix. * Heart healthy diet. (5) Hypertension: Qualifiers: Hypertension type: essential hypertension Qualified Code(s): I10 - Essential (primary) hypertension Code(s): I10 - Essential (primary) hypertension Status: Acute Assessment and Plan: BP reviewed and has been well controlled. Last BP * Continue home isosorbide 30mg PO daily * Trend BP and adjust medications as needed (6) Chronic anticoagulation: Code(s): Z79.01 - intermediate card tender (current) use of anticoagulants Status: Acute Assessment and Plan: Patient is on warfarin presumably for atrial fibrillation and bioprosthetic valve. INR is subtherapeutic at 1.4 today. * Increase warfarin to 6 mg. * Monitor INR (7) Schizophrenia: Code(s): F20.9 - Schizophrenia, unspecified Status: Acute Assessment and Plan: His mood is stable at this time. * Continue home Abilify 10mg PO HS and Depakote 250mg PO BID (8) Abdominal pain: Qualifiers: Abdominal location: left lower quadrant Qualified Code(s): R10.32 - Left lower quadrant pain Code(s): R10.9 - Unspecified abdominal pain Status: Acute Assessment and Plan: Reports 10/10 pain in the LLQ, though
--- NOTE | 2021-04-25 11:08 | PM.IMPN ---
Progress Note: A&P Assessment and Plan (1) Neurological symptoms: Code(s): R29.90 - Unspecified symptoms and signs involving the nervous system Status: Acute Assessment and Plan: The patient presented with slurred speech and heaviness in both arms, more so on the left, with weak left hand pail bailer when compared to the right. Some of his symptoms may be explained by the hypoglycemia however slurred speech and pail bailer weakness have persisted despite euglycemia. 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 Awaiting confirmation of bioprosthetic valve prior to proceeding. Echocardiogram reviewed with normal EF and mild MR and mild TR Carotid Doppler with <50% stenosis of right ICA and 50-69% stenosis of left ICA Appreciate neurology consultation Continue Aspirin 81mg PO daily (2) Hypoglycemia: Code(s): E16.2 - Hypoglycemia, unspecified Status: Acute Assessment and Plan: Glucose was low at 53 en route, per EMS report. Could be from weight loss and dosing of basal insulin. Blood sugars have been stable during hospitalization. Continue accuchecks, SSI, and hypoglycemic protocol Continue home Lantus at reduced dose of 25 units HS (3) Diabetes mellitus, with long-term current use of insulin: Qualifiers: Diabetes mellitus type: type 2 Diabetes mellitus complication status: without complication Qualified Code(s): E11.9 - Type 2 diabetes mellitus without complications; Z79.4 - nursing home (current) use of insulin Code(s): E11.9 - Type 2 diabetes mellitus without complications; Z79.4 - nursing home (current) use of insulin Status: Acute Assessment and Plan: A1c is 6.4 Plan is as detailed above. Metformin is on hold (4) Diastolic congestive heart failure, NYHA class 2: Qualifiers: Congestive heart failure chronicity: chronic Qualified Code(s): I50.32 - Chronic diastolic (congestive) heart failure Code(s): I50.30 - Unspecified diastolic (congestive) heart failure Status: Acute Assessment and Plan: He had trace periankle edema with mild interstitial edema on chest x-ray. Lung exam is clear and he is asymptomatic. Avoid IV fluids. Continue 40mg p.o. Lasix. Heart healthy diet. (5) Hypertension: Qualifiers: Hypertension type: essential hypertension Qualified Code(s): I10 - Essential (primary) hypertension Code(s): I10 - Essential (primary) hypertension Status: Acute Assessment and Plan: BP reviewed and has been well controlled. 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 INR is subtherapeutic at 1.4 today. Increase warfarin to 6 mg. Monitor INR (7) Schizophrenia: Code(s): F20.9 - Schizophrenia, unspecified Status: Acute Assessment and Plan: His mood is stable at this time. Continue home Abilify 10mg PO HS and Depakote 250mg PO BID (8) Abdominal pain: Qualifiers: Abdominal location: left lower quadrant Qualified Code(s): R10.32 - Left lower quadrant pain Code(s): R10.9 - Unspecified abdominal pain Status: Acute Assessment and Plan: Reports 10/10 pain in the LLQ, though exam findings not consistent with severe abdominal pain. CT a/p reviewed with no findings to explain symptoms. Seems to worsen after meals. Analgesics and antiemetics available as needed. Continue protonix Consider abdominal US should symptoms worsen or if unable to tolerate diet Subjective Date/time seen: 04/25/21 11:08 Interval history: Date of service: 04/25/2021 Nery Bowie is a 75 year old male with a history of atrial
[2021-04-25 12:11] LABS: Glucose Point of Care 290 mg/dl (65-105)
[2021-04-25] MEDS: INSULIN ASPART (*BKC) 100 UNITS/ML SUB-Q ×2 (13:02→16:40)
[2021-04-25] MEDS: WARFARIN (*PBKC) 3 MG TABLET 6 MG PO (16:41)
[2021-04-25 16:57] LABS: Glucose Point of Care 223 mg/dl (65-105)
[2021-04-25 18:56] LABS: Glucose Point of Care 280 mg/dl (65-105)
[2021-04-25] MEDS: ARIPiprazole 10 MG TABLET PO (20:12)
[2021-04-25] MEDS: OXYBUTYNIN CHLORIDE 5 MG TABLET PO (20:13)
[2021-04-25] MEDS: INSULIN GLARGINE (*BKC) 100 UNITS/ML 20 UNITS SUB-Q (20:13)
[2021-04-25 20:52] LABS: Glucose Point of Care 168 mg/dl (65-105)
[2021-04-26] VITALS (12 sets, daily range): BP systolic 129–140; BP diastolic 47–65; PULSE 71–86; RESP 18–20; TEMP 36.2–36.9; O2SAT 95–100
[2021-04-26 00:13] LABS: Glucose Point of Care 240 mg/dl (65-105)
[2021-04-26] MEDS: IPRATROPIUM BR 0.02% INH SOLN 0.5 MG/2.5 ML VIAL INHALATION ×4 (02:06→20:13)
[2021-04-26] MEDS: ALBUTEROL SULFATE NEB 2.5 MG/0.5 ML INH INHALATION ×4 (02:06→20:14)
[2021-04-26 05:51] LABS: Hemoglobin 10.8 g/dL (14.0-18.0)
[2021-04-26 06:03] LABS: INR 1.9; Prothrombin Time 22.6 Seconds (11.1-14.7)
[2021-04-26 06:06] LABS: Anion Gap 6 mmol/L (8-16); Blood Urea Nitrogen 24 mg/dL (9-20); Calcium 8.5 mg/dL (8.4-10.2); Carbon Dioxide 24 mmol/L (22-30); Chloride 107 mmol/L (98-107); Estimated CRCL calculation 60 ml/min; Estimated Glomerular Filt Rate > 60; Glucose 224 mg/dL (75-110); Potassium 4.7 mmol/L (3.4-5.0); Sodium 137 mmol/L (137-145)
[2021-04-26] MEDS: ASPIRIN 81 MG ENTERIC TABLET PO (08:21)
[2021-04-26] MEDS: ATORVASTATIN 20 MG TABLET PO (08:21)
[2021-04-26] MEDS: DOCUSATE SODIUM LIQ 100 MG/10 ML UDC PO ×2 (08:22→21:24)
[2021-04-26] MEDS: FENOFIBRATE NANOCRYSTALLIZED 145 MG TABLET PO (08:22)
[2021-04-26] MEDS: DIVALPROEX SODIUM SPRINKLE 125 MG CAP.DR 250 MG PO ×2 (08:22→21:24)
[2021-04-26] MEDS: polyethylene glycoL 3350 17 GM POWD.PACK PO (08:22)
[2021-04-26] MEDS: LORATADINE 10 MG TABLET PO (08:22)
[2021-04-26] MEDS: PANTOPRAZOLE 40 MG TABLET PO (08:22)
[2021-04-26] MEDS: INSULIN ASPART (*BKC) 100 UNITS/ML SUB-Q ×3 (08:22→16:48)
[2021-04-26] MEDS: FUROSEMIDE 40 MG TABLET PO (08:22)
[2021-04-26] MEDS: ISOSORBIDE MONONITRATE 30 MG TAB.ER.24H PO (08:22)
[2021-04-26 08:51] LABS: Glucose Point of Care 238 mg/dl (65-105)
--- NOTE | 2021-04-26 11:32 | PC.NURSE ---
Patient sitting in chair and c/o being lightheaded . VSS. (See vital signs documented). Offered to return patient to bed and he states he wants to stay up in the chair to eat lunch. Will continue to monitor.
[2021-04-26 12:09] LABS: Glucose Point of Care 264 mg/dl (65-105)
--- NOTE | 2021-04-26 14:55 | P.PNIM_ITS ---
Progress Note: A&P Assessment and Plan (1) Neurological symptoms: Code(s): R29.90 - Unspecified symptoms and signs involving the nervous system Status: Acute Assessment and Plan: The patient presented with slurred speech and heaviness in both arms, more so on the left, with weak left hand health education director when compared to the right. Some of his symptoms may be explained by the hypoglycemia however slurred speech and health education director weakness persisted. Symptoms are resolved at this time. 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 Awaiting confirmation of bioprosthetic valve prior to proceeding; results have been requested from outside facility. * Echocardiogram reviewed with normal EF and mild MR and mild TR * Appreciate neurology consultation * Continue Aspirin 81mg PO daily (2) Hypoglycemia: Code(s): E16.2 - Hypoglycemia, unspecified Status: Acute Assessment and Plan: Glucose was low at 53 en route, per EMS report. Could be from weight loss causing his basal insulin to be too high of a dose. Blood sugars have been stable during hospitalization. * Continue accuchecks, SSI, and hypoglycemic protocol * Continue home Lantus at 25 units qHS (3) Diabetes mellitus, with long-term current use of insulin: Qualifiers: Diabetes mellitus type: type 2 Diabetes mellitus complication status: without complication Qualified Code(s): E11.9 - Type 2 diabetes mellitus without complications; Z79.4 - long-term (current) use of insulin Code(s): E11.9 - Type 2 diabetes mellitus without complications; Z79.4 - chlorinator operator (current) use of insulin Status: Acute Assessment and Plan: A1c is 6.4 * Plan is as detailed above. * Metformin is on hold (4) Diastolic congestive heart failure, NYHA class 2: Qualifiers: Congestive heart failure chronicity: chronic Qualified Code(s): I50.32 - Chronic diastolic (congestive) heart failure Code(s): I50.30 - Unspecified diastolic (congestive) heart failure Status: Acute Assessment and Plan: He had trace periankle edema with mild interstitial edema on chest x-ray. Lung exam is clear and he is asymptomatic, appears euvolemic today * Avoid IV fluids. * Continue 40mg p.o. Lasix. * Heart healthy diet. (5) Hypertension: Qualifiers: Hypertension type: essential hypertension Qualified Code(s): I10 - Essential (primary) hypertension Code(s): I10 - Essential (primary) hypertension Status: Acute Assessment and Plan: BP reviewed and has been well controlled. Last BP 134/82 * Continue home isosorbide 30mg PO daily * Trend BP and adjust medications as needed (6) Chronic anticoagulation: Code(s): Z79.01 - chlorinator operator (current) use of anticoagulants Status: Acute Assessment and Plan: Patient is on warfarin presumably for atrial fibrillation and bioprosthetic valve. INR is subtherapeutic at 1.9 today. * Increase warfarin to 3.5 mg for today * Resume home regimen of 5 mg and 2.5 mg alternating once INR is therapeutic. * Monitor INR (7) Schizophrenia: Code(s): F20.9 - Schizophrenia, unspecified Status: Acute Assessment and Plan: His mood is stable at this time. * Continue home Abilify 10mg PO HS and Depakote 250mg PO BID (8) Abdominal pain: Qualifiers: Abdominal location: left lower quadrant Qualified Code(s): R10.32 - Left lower quadrant pain Code(s): R10.9 - Unspecified abdominal p
--- NOTE | 2021-04-26 14:55 | PM.IMPN ---
Progress Note: A&P Assessment and Plan (1) Neurological symptoms: Code(s): R29.90 - Unspecified symptoms and signs involving the nervous system Status: Acute Assessment and Plan: The patient presented with slurred speech and heaviness in both arms, more so on the left, with weak left hand dealer analyst when compared to the right. Some of his symptoms may be explained by the hypoglycemia however slurred speech and dealer analyst weakness persisted. Symptoms are resolved at this time. 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 Awaiting confirmation of bioprosthetic valve prior to proceeding; results have been requested from outside facility. Echocardiogram reviewed with normal EF and mild MR and mild TR Appreciate neurology consultation Continue Aspirin 81mg PO daily (2) Hypoglycemia: Code(s): E16.2 - Hypoglycemia, unspecified Status: Acute Assessment and Plan: Glucose was low at 53 en route, per EMS report. Could be from weight loss causing his basal insulin to be too high of a dose. Blood sugars have been stable during hospitalization. 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 Metformin is on hold (4) Diastolic congestive heart failure, NYHA class 2: Qualifiers: Congestive heart failure chronicity: chronic Qualified Code(s): I50.32 - Chronic diastolic (congestive) heart failure Code(s): I50.30 - Unspecified diastolic (congestive) heart failure Status: Acute Assessment and Plan: He had trace periankle edema with mild interstitial edema on chest x-ray. Lung exam is clear and he is asymptomatic, appears euvolemic today Avoid IV fluids. Continue 40mg p.o. Lasix. Heart healthy diet. (5) Hypertension: Qualifiers: Hypertension type: essential hypertension Qualified Code(s): I10 - Essential (primary) hypertension Code(s): I10 - Essential (primary) hypertension Status: Acute Assessment and Plan: BP reviewed and has been well controlled. Last BP 134/82 Continue home isosorbide 30mg PO daily Trend BP and adjust medications as needed (6) Chronic anticoagulation: Code(s): Z79.01 - [facility] (current) use of anticoagulants Status: Acute Assessment and Plan: Patient is on warfarin presumably for atrial fibrillation and bioprosthetic valve. INR is subtherapeutic at 1.9 today. Increase warfarin to 3.5 mg for today Resume home regimen of 5 mg and 2.5 mg alternating once INR is therapeutic. Monitor INR (7) Schizophrenia: Code(s): F20.9 - Schizophrenia, unspecified Status: Acute Assessment and Plan: His mood is stable at this time. Continue home Abilify 10mg PO HS and Depakote 250mg PO BID (8) Abdominal pain: Qualifiers: Abdominal location: left lower quadrant Qualified Code(s): R10.32 - Left lower quadrant pain Code(s): R10.9 - Unspecified abdominal pain Status: Acute Assessment and Plan: Reports 10/10 pain in the LLQ, though exam findings not consistent with severe abdominal pain. CT a/p reviewed with no findings to explain symptoms. Area of pain correlates to spot on his abdomen with faint bruising, which may be the cause of his pain. Pain is reproducible when I palpate the bruise. Supportive care. Analgesics and antiemetics available as needed. Continue stephen
[2021-04-26] MEDS: WARFARIN (*PBKC) 3 MG TABLET PO (16:48)
[2021-04-26 17:02] LABS: Glucose Point of Care 229 mg/dl (65-105)
[2021-04-26] MEDS: WARFARIN (*PBKC) 0.5 MG TABLET PO (17:11)
[2021-04-26] MEDS: ACETAMINOPHEN 500 MG TABLET 1000 MG PO (20:59)
[2021-04-26] MEDS: INSULIN GLARGINE (*BKC) 100 UNITS/ML 25 UNITS SUB-Q (21:22)
[2021-04-26] MEDS: OXYBUTYNIN CHLORIDE 5 MG TABLET PO (21:24)
[2021-04-26] MEDS: ARIPiprazole 10 MG TABLET PO (21:24)
[2021-04-26 21:34] LABS: Glucose Point of Care 289 mg/dl (65-105)
[2021-04-27] VITALS (7 sets, daily range): BP systolic 136; BP diastolic 55; PULSE 67–79; RESP 16–20; TEMP 36.5; O2SAT 96
[2021-04-27] MEDS: IPRATROPIUM BR 0.02% INH SOLN 0.5 MG/2.5 ML VIAL INHALATION ×3 (02:14→13:47)
[2021-04-27] MEDS: ALBUTEROL SULFATE NEB 2.5 MG/0.5 ML INH INHALATION ×3 (02:14→13:47)
[2021-04-27 05:50] LABS: Hematocrit 31.3 % (42.0-52.0); Hemoglobin 10.4 g/dL (14.0-18.0); Mean Corpuscular HGB Conc 33.2 g/dl (32-36); Mean Corpuscular Hemoglobin 28.7 pg (26-34); Mean Corpuscular Volume 86.5 fl (80-100); Mean Platelet Volume 10.8 fl (7.4-10.4); Platelet Count Result 187 k/mm3 (150-375); Red Blood Count 3.62 M/mm3 (4.6-6.20); Red Cell Distribution Width 15.6 % (11.5-14.5); White Blood Count 9.5 K/mm3 (4.5-10.0)
[2021-04-27 05:53] LABS: INR 2.1; Prothrombin Time 24.4 Seconds (11.1-14.7)
[2021-04-27 05:55] LABS: Anion Gap 4 mmol/L (8-16); Blood Urea Nitrogen 30 mg/dL (9-20); Calcium 9.2 mg/dL (8.4-10.2); Carbon Dioxide 26 mmol/L (22-30); Chloride 107 mmol/L (98-107); Cholesterol 104 mg/dL (0-200); Estimated CRCL calculation 54 ml/min; Estimated Glomerular Filt Rate > 60; Glucose 228 mg/dL (75-110); HDL Direct 35 mg/dL; Potassium 4.4 mmol/L (3.4-5.0); Sodium 137 mmol/L (137-145); Triglycerides 106 mg/dL (<150)
[2021-04-27 06:05] LABS: LDL Cholesterol Direct 44 mg/dL
[2021-04-27] MEDS: ASPIRIN 81 MG ENTERIC TABLET PO (07:40)
[2021-04-27] MEDS: ATORVASTATIN 20 MG TABLET PO (07:41)
[2021-04-27] MEDS: DIVALPROEX SODIUM SPRINKLE 125 MG CAP.DR 250 MG PO (07:41)
[2021-04-27] MEDS: FUROSEMIDE 40 MG TABLET PO (07:41)
[2021-04-27] MEDS: FENOFIBRATE NANOCRYSTALLIZED 145 MG TABLET PO (07:41)
[2021-04-27] MEDS: DOCUSATE SODIUM LIQ 100 MG/10 ML UDC PO (07:41)
[2021-04-27] MEDS: polyethylene glycoL 3350 17 GM POWD.PACK PO (07:42)
[2021-04-27] MEDS: ISOSORBIDE MONONITRATE 30 MG TAB.ER.24H PO (07:42)
[2021-04-27] MEDS: PANTOPRAZOLE 40 MG TABLET PO (07:42)
[2021-04-27] MEDS: LORATADINE 10 MG TABLET PO (07:42)
[2021-04-27 08:54] LABS: Glucose Point of Care 190 mg/dl (65-105)
[2021-04-27] MEDS: INSULIN ASPART (*BKC) 100 UNITS/ML SUB-Q ×2 (11:40→16:19)
[2021-04-27 12:35] LABS: Glucose Point of Care 335 mg/dl (65-105)
--- NOTE | 2021-04-27 16:18 | PM.DS ---
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 Given evidence of old infarct on brain CT, brain MRI was performed which was negative for acute findings with evidence of chronic thalamic infarct. Echocardiogram reviewed with normal EF, mild MR and mild TR. He was seen in consultation by Neurology. His symptoms were felt to be most consistent with hypoglycemic episode. He will continue aspirin 81 mg daily (2) Hypoglycemia: Code(s): E16.2 - Hypoglycemia, unspecified Status: Acute Assessment and Plan: Glucose was low at 53 en route, per EMS report. Could be from weight loss causing his basal insulin to be too high of a dose vs possibly excess sliding scale insulin. Blood sugars remained stable during hospitalization. His lantus was decreased to 28 units qHS. Blood sugars should be monitored at his facility with hypoglycemic protocol initiated. He should follow up with his PCP for further review of blood sugar trends. (3) Diabetes mellitus, with long-term current use of insulin: Qualifiers: Diabetes mellitus type: type 2 Diabetes mellitus complication status: without complication Qualified Code(s): E11.9 - Type 2 diabetes mellitus without complications; Z79.4 - adjunct faculty for medical terminology (current) use of insulin Code(s): E11.9 - Type 2 diabetes mellitus without complications; Z79.4 - [facility]PC (current) use of insulin Status: Acute Assessment and Plan: Plan as detailed above. A1c is 6.4. (4) Diastolic congestive heart failure, NYHA class 2: Qualifiers: Congestive heart failure chronicity: chronic Qualified Code(s): I50.32 - Chronic diastolic (congestive) heart failure Code(s): I50.30 - Unspecified diastolic (congestive) heart failure Status: Acute Assessment and Plan: He had trace periankle edema with mild interstitial edema on chest x-ray. Lung exam was clear and he is asymptomatic. He was euvolemic on exam. 40 mg PO Lasix continued. CHF education provided and he should be on heart healthy diet. (5) Hypertension: Qualifiers: Hypertension type: essential hypertension Qualified Code(s): I10 - Essential (primary) hypertension Code(s): I10 - Essential (primary) hypertension Status: Acute Assessment and Plan: Blood pressure reviewed and remained well controlled. Continue Lasix and isosorbide. (6) Chronic anticoagulation: Code(s): Z79.01 - FPC (current) use of anticoagulants Status: Acute Assessment and Plan: Patient is on warfarin presumably for atrial fibrillation and bioprosthetic valve. INR was subtherapeutic down to 1.4 but improved up to 2.1. Continue warfarin regimen. Repeat INR in 1 week for further monitoring. (7) Schizophrenia: Code(s): F20.9 - Schizophrenia, unspecified Status: Acute Assessment and Plan: Mood remained stable. Continue home Abilify 10mg PO HS and Depakote 250mg PO BID (8) Abdominal pain: Qualifiers: Abdominal location: left lower quadrant Qualified Code(s): R10.32 - Left lower quadrant pain Code(s): R10.9 - Unspecified abdominal pain Status: Acute Assessment and Plan: Reported 10/10 pain in the LLQ, though exam findings not consistent with severe abdominal pain. CT a/p reviewed with no findings to explain symptoms. Area of pain correlated to spot on his abdomen with faint bruising (likely at site of insulin injection), which may be the cause of his pain as he reported a sorenss. Pain was reproducible upon palpation of the bruise. Supp
[2021-04-27] MEDS: WARFARIN (*PBKC) 5 MG TABLET PO (16:25)
[2021-04-27 16:27] LABS: EDCOVIDSCREEN Negative (Negative)
[2021-04-27 16:54] LABS: Glucose Point of Care 249 mg/dl (65-105)
== END 2021-04-27 17:15 | disposition home or self-care (01) | DRG 638 ==
LOC: ANHED 13:15 → ANH2MED 14:19
PROVIDERS: Nurse Practitioner; Physician Assistant; Admitting Provider Emergency Medicine; Emergency Provider Emergency Medicine; Visit Provider Internal Medicine
DX: E11.649 Type 2 diabetes mellitus with hypoglycemia without coma (principal); I50.32 Chronic diastolic (congestive) heart failure; I48.20 Chronic atrial fibrillation, unspecified; I11.0 Hypertensive heart disease with heart failure; Z20.822 Contact with and (suspected) exposure to COVID-19; I65.23 Occlusion and stenosis of bilateral carotid arteries; D64.9 Anemia, unspecified; I25.10 Atherosclerotic heart disease of native coronary artery without angina pectoris; I34.1 Nonrheumatic mitral (valve) prolapse; E78.5 Hyperlipidemia, unspecified; H40.9 Unspecified glaucoma; F42.8 Other obsessive-compulsive disorder; F20.9 Schizophrenia, unspecified; S30.1XXA Contusion of abdominal wall, initial encounter; X58.XXXA Exposure to other specified factors, initial encounter; Z79.01 Long term (current) use of anticoagulants; Z79.4 Long term (current) use of insulin; Z95.1 Presence of aortocoronary bypass graft; Z95.2 Presence of prosthetic heart valve; Z87.891 Personal history of nicotine dependence; Z98.42 Cataract extraction status, left eye; Z98.41 Cataract extraction status, right eye
CPT/HCPCS: 36415; 51701; 70450; 70553; 71045; 74177; 80048; 80053; 80061; 80307; 81001; 82607; 82728; 82746; 82948; 83036; 83540; 83550; 83735; 84443; 84484; 85014; 85018; 85025; 85027; 85610; 85730; 87426; 93005; 93880; 94640; 96374; 97110; 97116; 97161; 97165; 97535; 99285; A9270; A9577; C8929; C9803; G0378; J1815; J2405; Q9957; Q9967

== ENCOUNTER 2021-05-06 08:00 | Outpatient (CLI) | payer MEDICARE, SELFPAY ==
[2021-05-06 08:24] LABS: Basophils Absolute Auto 0.03 K/mm3 (0.00-0.10); Basophils Percent Auto 0.3 % (0.0-1.0); Eosinophils Absolute Auto 0.37 K/mm3 (0.02-0.50); Eosinophils Percent Auto 3.9 % (1.0-6.0); Hematocrit 33.4 % (37.0-46.0); Immature Granulocyte Absolute 0.03 K/mm3 (0.00-0.00); Immature Granulocyte Percent A 0.3 % (0.0-0.0); Lymphocytes Absolute Auto 3.85 K/mm3 (1.10-4.50); Lymphocytes Percent Auto 40.5 % (18.0-42.0); Mean Corpuscular HGB Conc 32.9 g/dL (32.0-36.0); Mean Corpuscular Hemoglobin 28.6 pg (27.0-31.0); Mean Corpuscular Volume 86.8 fL (78.0-102.0); Mean Platelet Volume 10.9 fl (8.7-11.0); Monocytes Absolute Auto 0.66 K/mm3 (0.10-0.90); Monocytes Percent Auto 6.9 % (2.0-11.0); Neutrophils Absolute Auto 4.6 K/mm3 (1.7-7.2); Neutrophils Percent Auto 48.1 % (50.0-70.0); Nucleated Red Blood Cells Absolute Auto 0.04 K/mm3 (0.00-0.00); Nucleated Red Blood Cells Perc 0.4 % (0-0.0); Platelet Count Result 301 K/mm3 (150-420); Red Blood Count 3.85 M/mm3 (4.70-6.10); Red Cell Distribution Width 15.3 % (11.6-14.4); White Blood Count 9.5 K/mm3 (4.8-10.8)
[2021-05-06 09:20] LABS: Alanine Aminotransferase 21 U/L (16-63); Albumin Level 3.2 g/dL (3.4-5.0); Alkaline Phosphatase 52 U/L (46-116); Anion Gap 9 mmol/L (8-16); Aspartate Amino Transferase 20 U/L (15-37); Bilirubin,Total 0.3 mg/dL (0.00-1.00); Blood Urea Nitrogen 33 mg/dL (7-18); Calcium 8.9 mg/dL (8.5-10.1); Carbon Dioxide 27 mmol/L (21-32); Chloride 108 mmol/L (98-108); Cholesterol 125 mg/dL (0-200); Estimated Glomerular Filt Rate > 60; Glucose 62 mg/dL (70-99); HDL Direct 37 mg/dL (40-60); LDL Cholesterol Calculated 71 mg/dL (<130); Osmolality Calculated 303 mOsm/kg (285-295); Potassium 4.8 mmol/L (3.5-5.1); Sodium 144 mmol/L (136-145); Total Protein 6.2 g/dL (6.4-8.2); Triglycerides 84 mg/dL (0-150)
[2021-05-06 11:27] LABS: Creatinine Urine 20.45 mg/dL (40-278); MALB Creatinine Ratio 440.5 mg/g (0-30); Microalbumin Urine Random 90.1 mg/L
[2021-05-06 11:30] LABS: INR 3.2; Prothrombin Time 32.4 Seconds (9.50-12.10)
== END 2021-05-06 08:01 | disposition home or self-care (01) ==
PROVIDERS: PCP Nurse Practitioner Family; Visit Provider Nurse Practitioner Family
DX: Z79.01 Long term (current) use of anticoagulants (principal); I82.90 Acute embolism and thrombosis of unspecified vein; E11.9 Type 2 diabetes mellitus without complications
CPT/HCPCS: 36415; 80053; 80061; 82043; 83036; 85025; 85610

== ENCOUNTER 2021-06-24 07:33 | Outpatient (CLI) | payer MEDICARE, SELFPAY ==
[2021-06-24 08:00] LABS: Basophils Absolute Auto 0.04 K/mm3 (0.00-0.10); Basophils Percent Auto 0.5 % (0.0-1.0); Eosinophils Absolute Auto 0.27 K/mm3 (0.02-0.50); Eosinophils Percent Auto 3.3 % (1.0-6.0); Hematocrit 32.7 % (37.0-46.0); Hemoglobin 10.9 g/dL (12.4-15.3); Immature Granulocyte Absolute 0.03 K/mm3 (0.00-0.00); Immature Granulocyte Percent A 0.4 % (0.0-0.0); Lymphocytes Absolute Auto 2.84 K/mm3 (1.10-4.50); Lymphocytes Percent Auto 34.8 % (18.0-42.0); Mean Corpuscular HGB Conc 33.3 g/dL (32.0-36.0); Mean Corpuscular Hemoglobin 29.2 pg (27.0-31.0); Mean Corpuscular Volume 87.7 fL (78.0-102.0); Mean Platelet Volume 10.8 fl (8.7-11.0); Monocytes Absolute Auto 0.51 K/mm3 (0.10-0.90); Monocytes Percent Auto 6.2 % (2.0-11.0); Neutrophils Absolute Auto 4.5 K/mm3 (1.7-7.2); Neutrophils Percent Auto 54.8 % (50.0-70.0); Platelet Count Result 265 K/mm3 (150-420); Red Blood Count 3.73 M/mm3 (4.70-6.10); Red Cell Distribution Width 16.2 % (11.6-14.4); White Blood Count 8.2 K/mm3 (4.8-10.8)
[2021-06-24 08:44] LABS: Creatinine Urine 46.96 mg/dL (40-278); MALB Creatinine Ratio 27.6 mg/g (0-30); Microalbumin Urine Random < 13.0 mg/L
[2021-06-24 08:49] LABS: INR 3.2; Prothrombin Time 32.4 Seconds (9.50-12.10)
[2021-06-24 09:25] LABS: Alanine Aminotransferase 23 U/L (16-63); Albumin Level 3.1 g/dL (3.4-5.0); Alkaline Phosphatase 56 U/L (46-116); Anion Gap 7 mmol/L (8-16); Aspartate Amino Transferase 20 U/L (15-37); Bilirubin,Total 0.4 mg/dL (0.00-1.00); Blood Urea Nitrogen 34 mg/dL (7-18); Calcium 8.8 mg/dL (8.5-10.1); Carbon Dioxide 28 mmol/L (21-32); Chloride 110 mmol/L (98-108); Cholesterol 118 mg/dL (0-200); Estimated Glomerular Filt Rate > 60; Glucose 77 mg/dL (70-99); HDL Direct 34 mg/dL (40-60); LDL Cholesterol Calculated 71 mg/dL (<130); Osmolality Calculated 306 mOsm/kg (285-295); Potassium 4.6 mmol/L (3.5-5.1); Sodium 145 mmol/L (136-145); Total Protein 6.6 g/dL (6.4-8.2); Triglycerides 67 mg/dL (0-150)
== END 2021-06-24 07:34 | disposition home or self-care (01) ==
PROVIDERS: Visit Provider Internal Medicine Cardiovascular Disease
DX: Z95.3 Presence of xenogenic heart valve (principal); E11.9 Type 2 diabetes mellitus without complications
CPT/HCPCS: 36415; 80053; 80061; 82043; 83036; 85025; 85610

== ENCOUNTER 2021-07-08 08:04 | Outpatient (CLI) | payer MEDICARE, SELFPAY ==
[2021-07-08 08:38] LABS: INR 2.8; Prothrombin Time 28.7 Seconds (9.50-12.10)
== END 2021-07-08 08:05 | disposition home or self-care (01) ==
LOC: CHSLAB 08:06
PROVIDERS: Visit Provider Internal Medicine Cardiovascular Disease
DX: Z79.01 Long term (current) use of anticoagulants (principal); Z95.3 Presence of xenogenic heart valve
CPT/HCPCS: 36415; 85610

== ENCOUNTER 2021-08-05 09:24 | Outpatient (RCR) | payer MEDICARE, SELFPAY ==
[2021-05-13 08:55] LABS: Prothrombin Time 40.3 Seconds (9.50-12.10)
[2021-05-20 09:14] LABS: INR 4.8; Prothrombin Time 47.5 Seconds (9.50-12.10)
[2021-05-26 09:53] LABS: INR 2.5; Prothrombin Time 25.8 Seconds (9.50-12.10)
[2021-08-05 09:54] LABS: INR 2.4; Prothrombin Time 24.8 Seconds (9.50-12.10)
== END 2021-08-11 23:59 | disposition home or self-care (01) ==
LOC: CHSLAB 09:24
PROVIDERS: Physician Assistant; PCP Family Medicine; Visit Provider Internal Medicine Cardiovascular Disease
DX: Z79.01 Long term (current) use of anticoagulants (principal); Z95.3 Presence of xenogenic heart valve
CPT/HCPCS: 36415; 85610

== ENCOUNTER 2021-08-25 07:54 | Outpatient (CLI) | payer MEDICARE, SELFPAY ==
[2021-08-25 08:15] LABS: Basophils Absolute Auto 0.04 K/mm3 (0.00-0.10); Basophils Percent Auto 0.4 % (0.0-1.0); Eosinophils Percent Auto 3.3 % (1.0-6.0); Hematocrit 34.5 % (37.0-46.0); Hemoglobin 11.3 g/dL (12.4-15.3); Immature Granulocyte Absolute 0.03 K/mm3 (0.00-0.00); Immature Granulocyte Percent A 0.3 % (0.0-0.0); Lymphocytes Absolute Auto 3.18 K/mm3 (1.10-4.50); Lymphocytes Percent Auto 34.5 % (18.0-42.0); Mean Corpuscular HGB Conc 32.8 g/dL (32.0-36.0); Mean Corpuscular Hemoglobin 28.9 pg (27.0-31.0); Mean Corpuscular Volume 88.2 fL (78.0-102.0); Mean Platelet Volume 10.8 fl (8.7-11.0); Monocytes Percent Auto 6.5 % (2.0-11.0); Neutrophils Absolute Auto 5.1 K/mm3 (1.7-7.2); Platelet Count Result 280 K/mm3 (150-420); Red Blood Count 3.91 M/mm3 (4.70-6.10); Red Cell Distribution Width 15.7 % (11.6-14.4); White Blood Count 9.2 K/mm3 (4.8-10.8)
[2021-08-25 08:28] LABS: Creatinine Urine 56.16 mg/dL (40-278); MALB Creatinine Ratio 23.1 mg/g (0-30); Microalbumin Urine Random < 13.0 mg/L
[2021-08-25 08:31] LABS: Hemoglobin A1C 7.5 % (<5.7)
[2021-08-25 08:43] LABS: Alanine Aminotransferase 22 U/L (16-63); Albumin Level 3.1 g/dL (3.4-5.0); Alkaline Phosphatase 49 U/L (46-116); Anion Gap 10 mmol/L (8-16); Aspartate Amino Transferase 20 U/L (15-37); Bilirubin,Total 0.5 mg/dL (0.00-1.00); Blood Urea Nitrogen 30 mg/dL (7-18); Calcium 8.1 mg/dL (8.5-10.1); Carbon Dioxide 28 mmol/L (21-32); Chloride 105 mmol/L (98-108); Cholesterol 118 mg/dL (0-200); Estimated Glomerular Filt Rate 60; Glucose 92 mg/dL (70-99); HDL Direct 31 mg/dL (40-60); LDL Cholesterol Calculated 69 mg/dL (<130); Osmolality Calculated 302 mOsm/kg (285-295); Potassium 4.3 mmol/L (3.5-5.1); Sodium 143 mmol/L (136-145); Total Protein 6.7 g/dL (6.4-8.2); Triglycerides 90 mg/dL (0-150)
== END 2021-08-25 07:55 | disposition home or self-care (01) ==
LOC: CHSLAB 07:56
PROVIDERS: Visit Provider Nurse Practitioner Family
DX: E11.9 Type 2 diabetes mellitus without complications (principal)
CPT/HCPCS: 36415; 80053; 80061; 82043; 83036; 85025

== ENCOUNTER 2021-09-12 07:37 | Observation (INO) | payer MEDICARE, MEDICAID, SELFPAY ==
[2021-09-12] VITALS (8 sets, daily range): BP systolic 133–155; BP diastolic 55–66; PULSE 60–79; RESP 16–20; TEMP 35.8–36.7; O2SAT 97–100; BMI 23.2
--- NOTE | ~2021-09-12 | CT_ITS ---
EXAMINATION: CT brain wo con INDICATION: Altered mental status COMPARISON: 04/23/2021 TECHNIQUE: Standard unenhanced head CT. The dose-length product (DLP) was 605.33 mGy-cm. The mA was a djusted according to patient size. Iterative reconstruction technique was employed. FINDINGS: There is no acute intraparenchymal hemorrhage. No evidence of mass lesion. No evidence of a cute infarction. There are chronic lacunar infarcts of the right basal ganglia and right thalamus. Th ere is mild periventricular and subcortical hypodensity probably related to small vessel ischemic dis ease. There is mild prominence of the sulci and ventricles related to cerebral atrophy. Intracranial calcified cerebral atherosclerosis is noted. There are no extra-axial collections. There is no mass e ffect or midline shift. Changes in the globes are likely from ocular lens surgery. The visualized sin uses and mastoid air cells are well aerated. IMPRESSION: 1. Areas of prior infarction without acute intracranial abnormality. 2. Age related findings. Reviewed, dictated and finalized at location A. STRATE JUDGE
--- NOTE | 2021-09-12 07:44 | ED.WEAKNESS ---
HPI - Weakness General Chief complaint: Dizziness Stated complaint: ambulance Time Seen by Provider: 09/12/21 07:45 Source: patient and EMS Mode of arrival: EMS Limitations: altered mental status History of Present Illness HPI Narrative: 76-year-old man with a history of diabetes, atrial fibrillation, CVA, and CHF brought to the emergency department by EMS after he was found to have weakness and slurred speech 45 minutes prior to arrival. Per EMS it was sudden onset patient states he also has headache. He states he has had Nausea, nasal congestion, cough and difficulty breathing. he has had no vomiting, diarrhea, abdominal pain. He states his weakness is all over. Patient is not clear as to whether he has had the COVID vaccine or any sick exposures. MD Complaint: generalized weakness Onset (ago): minute(s) (45) Duration: constant Location: generalized Migration: none Severity: moderate Relieving factors: none Exacerbating factors: none Related Data Home Medications Medication Instructions Recorded Confirmed aripiprazole 10 mg PO HS 02/04/20 09/12/21 aspirin [Aspirin Low Dose] 81 mg PO DAILY 02/04/20 09/12/21 divalproex 250 mg PO BID 02/04/20 09/12/21 fenofibrate nanocrystallized 145 mg PO DAILY 02/04/20 09/12/21 furosemide 60 mg PO DAILY 02/04/20 09/12/21 insulin lispro [Humalog KwikPen See Rx Instructions .ROUTE .COMPLEX 02/04/20 09/12/21 Insulin] ipratropium-albuterol 3 ml INHALATION Q6H 02/04/20 09/12/21 loratadine 10 mg PO DAILY 02/04/20 09/12/21 metformin 500 mg PO DAILY 02/04/20 09/12/21 pantoprazole 40 mg PO DAILY 02/04/20 09/12/21 warfarin 2.5 mg PO HS 02/04/20 09/12/21 warfarin 5 mg PO HS 02/04/20 09/12/21 guaifenesin [Diabetic Tussin EX] 200 mg PO TID PRN 04/23/21 09/12/21 insulin syringe-needle U-100 04/23/21 09/12/21 [TRUEplus Insulin] isosorbide mononitrate 30 mg PO DAILY 04/23/21 09/12/21 oxybutynin chloride 5 mg PO HS 04/23/21 09/12/21 Allergies Allergy/AdvReac Type Severity Reaction Status Date / Time pear Allergy Unknown Verified 09/12/21 08:46 strawberry Allergy Unknown Verified 09/12/21 08:46 NKDA AdvReac Unknown Uncoded 09/12/21 08:46 Review of Systems Review of Systems: ROS unobtainable: Yes unobtainable due to mental status PMFSH Past Medical History Medical History Atrial fibrillation Postoperatively after CABG with bioprosthetic aortic valve replacement. Chronic anemia Chronic anticoagulation Coumadin. Coronary artery disease (~10/2011) Status post CABG. CVA (cerebral vascular accident) Chronic thalamic infarct Diabetes mellitus, with long-term current use of insulin Hemoglobin A1c was 7.2% in September 2020. Diastolic congestive heart failure, NYHA class 2 Echocardiogram August 2019: 1. Left ventricular systolic function is normal, estimated at 60-65%. 2. There is mildly increased left ventricular wall thickness. 3. Left ventricular septal wall motion is abnormal with septal motion related to bundle branch block. 4. The left ventricular diastolic function is grade II diastolic dysfunction. 5. Probable perimembranous VSD peak velocity 5.3 m/sec 110 mmHg gradient, however, not well visualized on this study. 6. The bioprosthetic aortic valve is not well visualized. 7. There is no bioprosthetic aortic valve stenosis. 8. There is trace regurgitation of the bioprosthetic aortic valve. 9. The mitral valve has thickened leaflets. 10. There is trace mitral valve regurgitation. 11. Focal, predominantly fixed and calcified echodensity above anterior mitral valve leaflet. 12. Unable to estimate PA systolic pressure due to poor spectral resolution of tricuspid regurgitant jet. 13. Mild mitral annular calcification. Glaucoma Hyperlipidemia Hypertension Mitral valve prolapse Obsessive compulsive disorder Schizophrenia Ventricular septal defect Managed conservatively. Surgical History Surgical History
--- NOTE | 2021-09-12 07:45 | ECG_ITS ---
Measurements Intervals [place] Rate: 68 P: 49 NM: 170 QRS: -29 QRSD: 172 T: 130 QT: 479 QTc: 511 Interpretive Statements SINUS RHYTHM LEFT BUNDLE BRANCH BLOCK ABNORMAL ECG Electronically Signed On 09-13-2021 8:57:03 PATROL INSPECTOR by Brooks Ordoñez D.O.
[2021-09-12 07:48] LABS: Glucose Point of Care 215 mg/dl (65-105)
[2021-09-12 08:21] LABS: Basophils Absolute Auto 0.03 K/mm3 (0.00-0.10); Basophils Percent Auto 0.5 % (0.0-1.0); Eosinophils Percent Auto 3.3 % (1.0-6.0); Hematocrit 31.3 % (37.0-46.0); Hemoglobin 10.4 g/dL (12.4-15.3); Immature Granulocyte Absolute 0.03 K/mm3 (0.00-0.00); Immature Granulocyte Percent A 0.5 % (0.0-0.0); Lymphocytes Absolute Auto 1.53 K/mm3 (1.10-4.50); Lymphocytes Percent Auto 24.9 % (18.0-42.0); Mean Corpuscular HGB Conc 33.2 g/dL (32.0-36.0); Mean Corpuscular Hemoglobin 29.8 pg (27.0-31.0); Mean Corpuscular Volume 89.7 fL (78.0-102.0); Mean Platelet Volume 10.6 fl (8.7-11.0); Monocytes Absolute Auto 0.39 K/mm3 (0.10-0.90); Monocytes Percent Auto 6.3 % (2.0-11.0); Neutrophils Percent Auto 64.5 % (50.0-70.0); Platelet Count Result 208 K/mm3 (150-420); Red Blood Count 3.49 M/mm3 (4.70-6.10); Red Cell Distribution Width 15.8 % (11.6-14.4); White Blood Count 6.2 K/mm3 (4.8-10.8)
[2021-09-12 08:36] LABS: INR 2.3; Partial Thromboplastin Time 36.2 SEC (23.90-30.70); Prothrombin Time 23.7 Seconds (9.50-12.10)
[2021-09-12 08:39] LABS: Alanine Aminotransferase 12 U/L (16-63); Albumin Level 2.8 g/dL (3.4-5.0); Alkaline Phosphatase 60 U/L (46-116); Anion Gap 8 mmol/L (8-16); Aspartate Amino Transferase 13 U/L (15-37); Bilirubin,Total 0.4 mg/dL (0.00-1.00); Blood Urea Nitrogen 28 mg/dL (7-18); Calcium 8.6 mg/dL (8.5-10.1); Carbon Dioxide 26 mmol/L (21-32); Chloride 105 mmol/L (98-108); Estimated CRCL calculation 49 ml/min; Estimated Glomerular Filt Rate > 60; Glucose 210 mg/dL (70-99); Osmolality Calculated 299 mOsm/kg (285-295); Potassium 4.4 mmol/L (3.5-5.1); Sodium 139 mmol/L (136-145); Total Protein 6.5 g/dL (6.4-8.2); Troponin I 14.5 ng/L (0.00-60.4)
[2021-09-12 08:40] LABS: CRP < 0.2 mg/dL (0.0-0.9)
[2021-09-12] MEDS: SODIUM CHLORIDE 0.9% IV 1,000 ML 999 ML IV CONT (08:40)
[2021-09-12 08:42] LABS: Add Urine Microscopic? YES; Appearance Urine Clear (Clear); Bilirubin Urine Negative (Negative); Blood Urine Negative (Negative); Color Urine Light Yellow (Yellow); Glucose Urine UA 2+ (Negative); Ketones Urine Negative (Negative); Leukocyte Esterase Ur Negative LEU/UL (Negative); Nitrate Urine Negative (Negative); Protein Urine Negative (Negative); pH Urine 6.5 (5.0-8.0)
[2021-09-12 08:47] LABS: Bacteria Urine None seen /hpf; RBC Urine 0-2 /hpf (0-2); Squamous Epithelial Cell Urine None seen /hpf (Few); WBC Urine 0-3 /hpf (0-3)
[2021-09-12 09:15] LABS: Glucose Point of Care 185 mg/dl (65-105)
[2021-09-12 09:20] LABS: SARS-CoV-2 Ag Negative (Negative)
[2021-09-12 10:25] LABS: Glucose Point of Care 177 mg/dl (65-105)
--- NOTE | 2021-09-12 11:40 | PC.NURSE ---
Patient admitted to room 208 from ED for weakness and dizziness on 24hr observation.
[2021-09-12 12:05] LABS: Glucose Point of Care 185 mg/dl (65-105)
--- NOTE | 2021-09-12 12:21 | PM.IMHP ---
H&P: HPI History of Present Illness Date/Time: 09/12/21 12:21 Nery Bowie is a 76 year old male who comes to the hospital and admitted under Observation for Altered Mental Status. Pt states he had just finished a breathing treatment then got up and walked about 75 feet. He began to feel weak and dizzy and sat down. He states that if the seat was not there he would have fallen. Pt states that he was sitting feeling dizzy and light headed with some blurred vision and started to slump to one side and unable to sit upright. Pt denies fevers, chills, muscle and body aches, chest pain, difficulty breathing, nausea and vomiting, difficulty with BM or urination, or abdominal pain. Chief Complaint: AMS Review of Systems Review of Systems: All systems reviewed & are unremarkable except as noted in HPI and below Constitutional: Constitutional: Reports no additional constitutional complaints, Denies body ache(s), Denies chills, Denies fever(s) and Denies headache(s) Eyes: Eyes: Reports no additional eye complaints, Denies blind spots, Denies blurry vision (this is resolved), Denies change in vision, Denies diplopia and Denies loss of vision ENT: Reports system reviewed and no additional complaints, except as documented, Denies dizziness (resolved at this time) and Denies headache(s) Comments: difficulty swallowing at times, sometimes chocks of water or foods, states he cuts his own food up when eating Cardiovascular: Cardiovascular: Reports no additional cardiovascular complaints, Denies chest pain, Denies chest pain at rest and Denies chest pain with activity Comments: Describes having a CABG in the past Respiratory: Respiratory: Reports no additional respiratory complaints, Reports cough (occasional), Denies dyspnea and Denies dyspnea on exertion Gastrointestinal: Gastrointestinal: Reports no additional gastrointestinal complaints, Denies abdominal pain, Denies change in stool character, Denies constipation, Denies heartburn, Denies diarrhea, Denies nausea and Denies vomiting Genitourinary: Genitourinary: Reports no additional male genitourinary complaints, Denies hematuria, Denies dysuria and Denies flank pain Musculoskeletal: Musculoskeletal: Reports no additional musculoskeletal complaints Neurologic: Denies system reviewed and no additional complaints, except as documented PMFSH Past Medical History Medical History (Updated 09/12/21 @ 12:40 by Jaquan Noyola, COOK HOUSE SUPERVISOR-C) Atrial fibrillation Postoperatively after CABG with bioprosthetic aortic valve replacement. Chronic anemia Chronic anticoagulation Coumadin. Coronary artery disease (~10/2011) Status post CABG. CVA (cerebral vascular accident) Chronic thalamic infarct Diabetes mellitus, with long-term current use of insulin Hemoglobin A1c was 7.2% in September 2020. Diastolic congestive heart failure, NYHA class 2 Echocardiogram August 2019: 1. Left ventricular systolic function is normal, estimated at 60-65%. 2. There is mildly increased left ventricular wall thickness. 3. Left ventricular septal wall motion is abnormal with septal motion related to bundle branch block. 4. The left ventricular diastolic function is grade II diastolic dysfunction. 5. Probable perimembranous VSD peak velocity 5.3 m/sec 110 mmHg gradient, however, not well visualized on this study. 6. The bioprosthetic aortic valve is not well visualized. 7. There is no bioprosthetic aortic valve stenosis. 8. There is trace regurgitation of the bioprosthetic aortic valve. 9. The mitral valve has thickened leaflets. 10. There is trace mitral valve regurgitation. 11. Focal, predominantly fixed and calcified echodensity above anterior mitral valve leaflet. 12. Unable to estimate PA systolic pressure due to poor spectral resolution of tricuspid regurgitant jet. 13. Mild mitral annular calcification. Glaucoma Hyperlipidemia Hypertension Mitral valve prolapse Obsessive compulsive disorder Schizophrenia Ventr
--- NOTE | 2021-09-12 12:26 | PC.NURSE ---
Swallow test performed and patient did have a slight chock post swallow. Patient stated this happened prior to admit and sometimes coughs when eating. Patient instructed to take smaller drinks/bites and to be sure to chew up food well.
[2021-09-12] MEDS: SODIUM CHLORIDE 0.9% IV 1,000 ML 100 ML IV CONT ×2 (13:35→23:41)
[2021-09-12] MEDS: IPRATROPIUM 0.5 MG/ALBUTEROL SULFATE 2.5 MG AMPUL.NEB 3 ML INHALATION ×2 (13:38→18:11)
[2021-09-12 16:23] LABS: Glucose Point of Care 264 mg/dl (65-105)
[2021-09-12] MEDS: DIVALPROEX SODIUM SPRINKLE 125 MG CAP.DR 250 MG PO (16:57)
[2021-09-12] MEDS: WARFARIN (*PBKC) 5 MG TABLET PO (16:58)
--- NOTE | 2021-09-12 19:10 | PC.NURSE ---
Completed bedside change of shift report. Patient is sleeping comfortably in bed, with no signs of pain or discomfort. Day shift nurse stated that patient has had no complaints, has not exhibited slurred speech, and has tolerated his neb treatments well.
[2021-09-12] MEDS: OXYBUTYNIN CHLORIDE 5 MG TABLET PO (21:02)
[2021-09-12] MEDS: INSULIN GLARGINE (*BKC) 100 UNITS/ML 28 UNITS SUB-Q (21:02)
[2021-09-12] MEDS: ARIPiprazole 10 MG TABLET PO (21:03)
[2021-09-12 21:29] LABS: Glucose Point of Care 185 mg/dl (65-105)
--- NOTE | 2021-09-12 22:12 | PC.NURSE ---
Completed patient rounding. Patient is sleeping comfortably in bed, with no signs of pain or discomfort.
[2021-09-13] VITALS (13 sets, daily range): BP systolic 109–147; BP diastolic 51–74; PULSE 55–78; RESP 16–20; TEMP 36.1–36.4; O2SAT 95–100
[2021-09-13] MEDS: IPRATROPIUM 0.5 MG/ALBUTEROL SULFATE 2.5 MG AMPUL.NEB 3 ML INHALATION ×3 (01:38→12:58)
--- NOTE | 2021-09-13 02:15 | PC.NURSE ---
Completed patient rounding. Patient is resting comfortably in bed, with no signs of pain or discomfort.
--- NOTE | 2021-09-13 06:13 | PC.NURSE ---
Completed patient rounding. Patient is resting comfortably in bed. States he is not in any pain, and does not need anything at this time.
[2021-09-13 06:17] LABS: Hematocrit 28.7 % (37.0-46.0); Hemoglobin 9.5 g/dL (12.4-15.3); Mean Corpuscular HGB Conc 33.1 g/dL (32.0-36.0); Mean Corpuscular Hemoglobin 29.2 pg (27.0-31.0); Mean Corpuscular Volume 88.3 fL (78.0-102.0); Mean Platelet Volume 10.2 fl (8.7-11.0); Platelet Count Result 191 K/mm3 (150-420); Red Blood Count 3.25 M/mm3 (4.70-6.10); Red Cell Distribution Width 15.7 % (11.6-14.4); White Blood Count 7.4 K/mm3 (4.8-10.8)
[2021-09-13 06:30] LABS: Prothrombin Time 21.1 Seconds (9.50-12.10)
[2021-09-13 06:31] LABS: Anion Gap 5 mmol/L (8-16); Blood Urea Nitrogen 19 mg/dL (7-18); Calcium 8.2 mg/dL (8.5-10.1); Carbon Dioxide 26 mmol/L (21-32); Chloride 107 mmol/L (98-108); Estimated CRCL calculation 54 ml/min; Estimated Glomerular Filt Rate > 60; Glucose 87 mg/dL (70-99); Osmolality Calculated 287 mOsm/kg (285-295); Potassium 4.2 mmol/L (3.5-5.1); Sodium 138 mmol/L (136-145)
--- NOTE | 2021-09-13 08:01 | PM.DS ---
DS: Admitting Diagnosis Discharge Date 09/13/2021 Admitting Diagnosis Altered Mental Status DS: Discharge Diagnosis Discharge Diagnosis (1) AMS (altered mental status): Qualifiers: Altered mental status type: somnolence Qualified Code(s): R40.0 - Somnolence Code(s): R41.82 - Altered mental status, unspecified Status: Acute Assessment and Plan: Seems to have resolved at this time. Possibly due to A fib post NEB treatment, decreased CO, Vagal, TIA, will perform Neuro checks, Anemia is stable at 10.4 and 31.3, INR is Therapeutic at 2.3 for his Coumadin and A fib 09/13/2021 Pt appears to be at baseline, communicating well, does well with Neuro checks, Pt states he feels like his normal self as well. Orthostatic ordered: Lay 109/55 HR 67, Sit 116/57 HR 73, Stand 120/51 HR 76, PT recommended Pt use [facility] PT. (2) Weakness: Code(s): R53.1 - Weakness Status: Acute Assessment and Plan: Pt still seems a bit weak, will have PT evaluate on Monday09/13/2021 Requested PT to perform a DC Evaluation (3) Atrial fibrillation: Code(s): I48.91 - Unspecified atrial fibrillation Status: Acute Assessment and Plan: Continue Coumadin current INR is 2.3, Telemetry 09/13/2021 Telemetry showing NSR (4) Hyperlipidemia: Code(s): E78.5 - Hyperlipidemia, unspecified Status: Acute Assessment and Plan: Continue Atorvastatin and Fenofibrate (5) Diabetes mellitus, with long-term current use of insulin: Qualifiers: Diabetes mellitus complication status: without complication Diabetes mellitus type: type 2 Qualified Code(s): E11.9 - Type 2 diabetes mellitus without complications; Z79.4 - terminologist (current) use of insulin Code(s): E11.9 - Type 2 diabetes mellitus without complications; Z79.4 - [facility] (current) use of insulin Status: Acute Assessment and Plan: Continue Metformin, SSI, Insulin Glargine, hypoglycemic protocol in place, diabetic diet, ACHS glucose checks 09/13/2021 Glucose has been 185-264 average 202, no changes at this time Pt to follow up with PCP (6) Hypertension: Qualifiers: Hypertension type: essential hypertension Qualified Code(s): I10 - Essential (primary) hypertension Code(s): I10 - Essential (primary) hypertension Status: Acute Assessment and Plan: Pt has had 2 BP readings 155/58 and 133/55 with HR 60-70s, continue Lasix, Imdur, monitor VS and make changes as needed. 09/13/2021 BP this AM 128/72 has been stable overnight, no changes to be made to medications at this time (7) Chronic anemia: Code(s): D64.9 - Anemia, unspecified Status: Acute Assessment and Plan: Stable at baseline, H/H 10.4/31.3 09/13/2021 H/H 9.5/28.7 (8) Schizophrenia: Code(s): F20.9 - Schizophrenia, unspecified Status: Acute Assessment and Plan: Continue Abilify, Depakote, monitor Pt. DS: Summary Hospital Course Hospital Course: Improved, Mental status back at baseline. Time Spent with Patient Time attestation: Total time spent providing and/or coordinating discharge services: < 30 Minutes Exam Const: General: cooperative, healthy appearing, comfortable, no acute distress, well developed, alert, awake and Physically active Nutritional Appearance: average body habitus HENMT: Head: normal to inspection and atraumatic Ears: hearing grossly normal bilaterally Face and sinus: normal facial exam and face symmetric Eyes: General: appearance normal, both eyes and all related structures Alignment and Position: alignment normal Pupils: Equal, round and reactive pupils present Resp: Effort & Inspection: normal respiratory effort Auscultation: clear to auscultation bilaterally Cardio: Jugular venous distension: no JVD Rate: regular rate Heart sounds: S1 normal heart sound present and S2 normal heart sound present GI: GI Palp: Yes Soft to palpation and
[2021-09-13] MEDS: DIVALPROEX SODIUM SPRINKLE 125 MG CAP.DR 250 MG PO (09:12)
[2021-09-13] MEDS: PANTOPRAZOLE 40 MG TABLET PO (09:12)
[2021-09-13] MEDS: ASPIRIN 81 MG ENTERIC TABLET PO (09:12)
[2021-09-13] MEDS: FUROSEMIDE 20 MG TABLET 60 MG PO (09:12)
[2021-09-13] MEDS: ATORVASTATIN 40 MG TABLET PO (09:12)
[2021-09-13] MEDS: metFORMIN HCL XR 500 MG TAB.SR.24H PO (09:12)
[2021-09-13] MEDS: LORATADINE 10 MG TABLET PO (09:13)
[2021-09-13] MEDS: ISOSORBIDE MONONITRATE 30 MG TAB.ER.24H PO (09:13)
[2021-09-13] MEDS: FENOFIBRATE NANOCRYSTALLIZED 145 MG TABLET PO (09:13)
[2021-09-13 12:17] LABS: Creatinine Urine 35.88 mg/dL (40-278); MALB Creatinine Ratio 36.2 mg/g (0-30); Microalbumin Urine Random < 13.0 mg/L
[2021-09-13 12:19] LABS: Cholesterol 94 mg/dL (0-200); HDL Direct 31 mg/dL (40-60); LDL Cholesterol Calculated 52 mg/dL (<130); Triglycerides 54 mg/dL (0-150)
[2021-09-13 12:31] LABS: Glucose Point of Care 351 mg/dl (65-105)
[2021-09-13 12:36] LABS: Hemoglobin A1C 7.7 % (<5.7)
--- NOTE | 2021-09-15 09:53 | PC.NURSE ---
[facility] states they received and understood the discharge instructions and they have no questions.
== END 2021-09-13 13:30 ==
LOC: CHSED 10:15 → CHS2ND 10:48
PROVIDERS: Emergency Medicine; Nurse Practitioner Family; Admitting Provider Emergency Medicine; Emergency Provider Emergency Medicine; Visit Provider Emergency Medicine
DX: R41.82 Altered mental status, unspecified (principal); R53.1 Weakness; I48.20 Chronic atrial fibrillation, unspecified; I11.0 Hypertensive heart disease with heart failure; I50.30 Unspecified diastolic (congestive) heart failure; I25.10 Atherosclerotic heart disease of native coronary artery without angina pectoris; E78.5 Hyperlipidemia, unspecified; E11.9 Type 2 diabetes mellitus without complications; F42.9 Obsessive-compulsive disorder, unspecified; F20.9 Schizophrenia, unspecified; Z79.01 Long term (current) use of anticoagulants; Z79.4 Long term (current) use of insulin; Z98.41 Cataract extraction status, right eye; Z98.42 Cataract extraction status, left eye; Z95.4 Presence of other heart-valve replacement; Z95.1 Presence of aortocoronary bypass graft; Z86.73 Personal history of transient ischemic attack (TIA), and cerebral infarction without residual deficits; Z87.891 Personal history of nicotine dependence; Z20.822 Contact with and (suspected) exposure to COVID-19
CPT/HCPCS: 36415; 70450; 80048; 80053; 80061; 81001; 82043; 82948; 83036; 83605; 84484; 85025; 85027; 85610; 85730; 86140; 87040; 87426; 93005; 94640; 96360; 96361; 97161; 99285; A9270; C9803; G0378; J1815; J7030

== ENCOUNTER 2021-10-09 08:51 | Inpatient (IN) | payer MEDICARE, MEDICAID, SELFPAY ==
[2021-10-09] VITALS (14 sets, daily range): BP systolic 92–132; BP diastolic 42–53; PULSE 58–90; RESP 16–20; TEMP 35.7–36.2; O2SAT 94–99; BMI 24.5
--- NOTE | ~2021-10-09 | XR_ITS ---
EXAMINATION: XR chest 2V DATE: 10/09/2021 10:12 INDICATION: Hypotension TECHNIQUE: AP and lateral views of the chest are obtained. COMPARISON: 04/23/2021 FINDINGS: There are small pleural effusions with improvement on the left. Bibasilar airspace opacitie s persist with improvement on the left. There is no pneumothorax. Median sternotomy wires and mediast inal surgical clips are seen, likely from prior coronary artery bypass grafting. Changes of aortic va lve replacement are also noted. The heart size is upper limits of normal for technique. There is mode rate thoracic spondylosis. IMPRESSION: 1. Small pleural effusions with slight improvement on the left. 2. Bibasilar airspace opacities with slight improvement on the left, likely atelectasis. Reviewed, dictated and finalized at location A. IGN LANGUAGE INTERPRETER IMPRESSION: 1. Small pleural effusions with slight improvement on the left. 2. Bibasilar airspace opacities with slight improvement on the left, likely ate lectasis.
--- NOTE | ~2021-10-09 | CT_ITS ---
EXAMINATION: CT brain wo con INDICATION: Head injury COMPARISON: 09/12/2021 TECHNIQUE: Standard unenhanced head CT. The dose-length product (DLP) was 529.67 mGy-cm. The mA was a djusted according to patient size. Iterative reconstruction technique was employed. FINDINGS: There is no acute intraparenchymal hemorrhage. No evidence of mass lesion. No evidence of a cute infarction. Again noted are old lacunar infarcts of the right basal ganglia and right thalamus. There is mild periventricular and subcortical hypodensity probably related to small vessel ischemic d isease. There is mild prominence of the sulci and ventricles related to cerebral atrophy. Intracrania l calcified cerebral atherosclerosis is noted. There are no extra-axial collections. There is no mass effect or midline shift. Changes in the globes are likely from ocular lens surgery. There is mild mu cosal thickening of the paranasal sinuses. IMPRESSION: 1. Areas of prior infarction without acute intracranial abnormality. 2. Age related findings. Reviewed, dictated and finalized at location A. L FREEZING MACHINE OPERATOR
--- NOTE | 2021-10-09 09:10 | ECG_ITS ---
Measurements Intervals [place] Rate: 58 P: 67 CA: 191 QRS: -30 QRSD: 174 T: 123 QT: 493 QTc: 487 Interpretive Statements SINUS BRADYCARDIA LEFT BUNDLE BRANCH BLOCK ABNORMAL ECG Electronically Signed On 10-09-2021 17:08:57 METHODOLOGIST by Brooks Ordoñez D.O.
[2021-10-09] MEDS: SODIUM CHLORIDE 0.9% IV 1,000 ML 999 ML IV CONT (09:28)
--- NOTE | 2021-10-09 09:28 | PC.NURSE ---
ERP ordered urine sample. Pt states he does not have to go at this time. Pt provided call light and aware to call out if able to provide sample.
[2021-10-09 09:51] LABS: Basophils Absolute Auto 0.03 K/mm3 (0.00-0.10); Basophils Percent Auto 0.5 % (0.0-1.0); Eosinophils Absolute Auto 0.13 K/mm3 (0.02-0.50); Hematocrit 29.9 % (37.0-46.0); Hemoglobin 10.2 g/dL (12.4-15.3); Immature Granulocyte Absolute 0.02 K/mm3 (0.00-0.00); Immature Granulocyte Percent A 0.3 % (0.0-0.0); Lymphocytes Absolute Auto 1.19 K/mm3 (1.10-4.50); Mean Corpuscular HGB Conc 34.1 g/dL (32.0-36.0); Mean Corpuscular Hemoglobin 29.5 pg (27.0-31.0); Mean Corpuscular Volume 86.4 fL (78.0-102.0); Mean Platelet Volume 10.5 fl (8.7-11.0); Monocytes Absolute Auto 0.34 K/mm3 (0.10-0.90); Monocytes Percent Auto 5.1 % (2.0-11.0); Neutrophils Absolute Auto 4.9 K/mm3 (1.7-7.2); Neutrophils Percent Auto 74.1 % (50.0-70.0); Platelet Count Result 197 K/mm3 (150-420); Red Blood Count 3.46 M/mm3 (4.70-6.10); Red Cell Distribution Width 15.1 % (11.6-14.4); White Blood Count 6.6 K/mm3 (4.8-10.8)
[2021-10-09 10:05] LABS: INR 2.6; Partial Thromboplastin Time 37.6 SEC (23.90-30.70); Prothrombin Time 26.9 Seconds (9.50-12.10)
[2021-10-09 10:10] LABS: Alanine Aminotransferase 8 U/L (16-63); Albumin Level 2.9 g/dL (3.4-5.0); Alkaline Phosphatase 55 U/L (46-116); Anion Gap 8 mmol/L (8-16); Aspartate Amino Transferase 11 U/L (15-37); Bilirubin,Total 0.5 mg/dL (0.00-1.00); Blood Urea Nitrogen 30 mg/dL (7-18); CRP < 0.5 mg/dL (0.0-0.9); Calcium 8.4 mg/dL (8.5-10.1); Carbon Dioxide 24 mmol/L (21-32); Chloride 105 mmol/L (98-108); Estimated CRCL calculation 49 ml/min; Estimated Glomerular Filt Rate > 60; Glucose 246 mg/dL (70-99); Osmolality Calculated 298 mOsm/kg (285-295); Potassium 4.6 mmol/L (3.5-5.1); Sodium 137 mmol/L (136-145); Total Protein 6.6 g/dL (6.4-8.2); Troponin I 16.1 ng/L (0.00-60.4)
[2021-10-09 10:13] LABS: Lactic Acid Reflex 1.2 mmol/L (0.4-2.0)
--- NOTE | 2021-10-09 10:24 | PC.NURSE ---
Pt attmpting to urinate at this time. Pt has a urinal but states he is having diffuclty going. Pt still attempting will continue to monitor.
--- NOTE | 2021-10-09 10:24 | ED.SYNCOPE ---
HPI - Syncope General Chief Complaint: Dizziness Stated Complaint: ambulance Source: patient and EMS Mode of arrival: ambulatory Limitations: no limitations History of Present Illness HPI narrative: this is a 76-year-old gentleman that presented via EMS from [facility], with some episode syncope patient is currently confused denies any chest pain or shortness of breath is no peripheral edema no fever chills no nausea vomiting no abdominal pain no flank pain no dysuria. MD complaint: loss of consciousness Onset (ago): minute(s) Related Data Home Medications Medication Instructions Recorded Confirmed aripiprazole 15 mg PO HS 02/04/20 10/09/21 aspirin [Aspirin Low Dose] 81 mg PO DAILY 02/04/20 10/09/21 divalproex 250 mg PO BID 02/04/20 10/09/21 fenofibrate nanocrystallized 145 mg PO DAILY 02/04/20 10/09/21 furosemide 60 mg PO DAILY 02/04/20 10/09/21 insulin lispro [Humalog KwikPen See Rx Instructions .ROUTE .COMPLEX 02/04/20 10/09/21 Insulin] ipratropium-albuterol 3 ml INHALATION Q6H 02/04/20 10/09/21 loratadine 10 mg PO DAILY 02/04/20 10/09/21 metformin 500 mg PO DAILY 02/04/20 10/09/21 pantoprazole 40 mg PO DAILY 02/04/20 10/09/21 warfarin 2.5 mg PO HS 02/04/20 10/09/21 warfarin 5 mg PO HS 02/04/20 10/09/21 guaifenesin [Diabetic Tussin EX] 200 mg PO TID PRN 04/23/21 10/09/21 insulin syringe-needle U-100 04/23/21 09/12/21 [TRUEplus Insulin] isosorbide mononitrate 30 mg PO DAILY 04/23/21 10/09/21 oxybutynin chloride 5 mg PO HS 04/23/21 10/09/21 furosemide 20 mg PO DAILY PRN 10/09/21 10/09/21 Allergies Allergy/AdvReac Type Severity Reaction Status Date / Time pear Allergy Unknown Verified 10/09/21 09:03 strawberry Allergy Unknown Verified 10/09/21 09:03 NKDA AdvReac Unknown Uncoded 09/12/21 08:46 Review of Systems Review of Systems: All systems reviewed & are unremarkable except as noted in HPI and below PMFSH Past Medical History Medical History Atrial fibrillation Postoperatively after CABG with bioprosthetic aortic valve replacement. Chronic anemia Chronic anticoagulation Coumadin. Coronary artery disease (~10/2011) Status post CABG. CVA (cerebral vascular accident) Chronic thalamic infarct Diabetes mellitus, with long-term current use of insulin Hemoglobin A1c was 7.2% in September 2020. Diastolic congestive heart failure, NYHA class 2 Echocardiogram August 2019: 1. Left ventricular systolic function is normal, estimated at 60-65%. 2. There is mildly increased left ventricular wall thickness. 3. Left ventricular septal wall motion is abnormal with septal motion related to bundle branch block. 4. The left ventricular diastolic function is grade II diastolic dysfunction. 5. Probable perimembranous VSD peak velocity 5.3 m/sec 110 mmHg gradient, however, not well visualized on this study. 6. The bioprosthetic aortic valve is not well visualized. 7. There is no bioprosthetic aortic valve stenosis. 8. There is trace regurgitation of the bioprosthetic aortic valve. 9. The mitral valve has thickened leaflets. 10. There is trace mitral valve regurgitation. 11. Focal, predominantly fixed and calcified echodensity above anterior mitral valve leaflet. 12. Unable to estimate PA systolic pressure due to poor spectral resolution of tricuspid regurgitant jet. 13. Mild mitral annular calcification. Glaucoma Hyperlipidemia Hypertension Mitral valve prolapse Obsessive compulsive disorder Schizophrenia Ventricular septal defect Managed conservatively. Surgical History Surgical History History of aortic valve replacement with bioprosthetic valve History of bilateral cataract extraction History of coronary artery bypass graft x 2 (10/2011) GONZALEZ to LAD, left radial graft to obtuse marginal. Hx of CABG 2 vessel CABG October 2011 with GONZALEZ to LAD and left radial artery graft to obtuse ma
[2021-10-09] MEDS: SODIUM CHLORIDE 0.9% IV 1,000 ML 100 ML IV CONT (11:35)
--- NOTE | 2021-10-09 11:51 | PC.NURSE ---
Patient admitted to room 204 from ED. Patient transferred per maxi slide to bed. Oriented to room and call light. Admission questions reviewed with patient. Patient answers questions appropriately.
[2021-10-09 11:57] LABS: Glucose Point of Care 256 mg/dl (65-105)
[2021-10-09] MEDS: IPRATROPIUM 0.5 MG/ALBUTEROL SULFATE 2.5 MG AMPUL.NEB 3 ML INHALATION ×2 (13:01→18:30)
--- NOTE | 2021-10-09 13:09 | PM.IMHP ---
H&P: HPI History of Present Illness Date/Time: 10/09/21 13:09 Nery Bowie is a 76 year old male admitted for Syncope and Pneumonia. Pt states that this AM he was sitting down for breakfast and was given his medications including his AM insulin. He states he informed staff that he was not feeling well and was dizzy. I called staff at [facility] and was informed the Pt had his head down in his food which they then changed his position and the next thing they knew he was on the floor. Pt states his body went numb all at once and his vision was going dark. He did not recall eating his breakfast. Staff at [facility] stated his glucose was 190s and after he was woken up they gave him a glass of milk or chocolate milk. They checked his BP and it was Low which prompted staff to send him to the ER. Pt at this time denies any chest pain, SOB, abdominal pain, fevers, chills, cough, muscle aches, or increased weakness at this time. Staff states he has not had any fevers, SOB, or cough lately. Chief Complaint: Dizziness Review of Systems Review of Systems: HPI provided by Pt and Staff via phone call to [facility]. All systems reviewed & are unremarkable except as noted in HPI and below PMFSH Past Medical History Medical History Atrial fibrillation Postoperatively after CABG with bioprosthetic aortic valve replacement. Chronic anemia Chronic anticoagulation Coumadin. Coronary artery disease (~10/2011) Status post CABG. CVA (cerebral vascular accident) Chronic thalamic infarct Diabetes mellitus, with long-term current use of insulin Hemoglobin A1c was 7.2% in September 2020. Diastolic congestive heart failure, NYHA class 2 Echocardiogram August 2019: 1. Left ventricular systolic function is normal, estimated at 60-65%. 2. There is mildly increased left ventricular wall thickness. 3. Left ventricular septal wall motion is abnormal with septal motion related to bundle branch block. 4. The left ventricular diastolic function is grade II diastolic dysfunction. 5. Probable perimembranous VSD peak velocity 5.3 m/sec 110 mmHg gradient, however, not well visualized on this study. 6. The bioprosthetic aortic valve is not well visualized. 7. There is no bioprosthetic aortic valve stenosis. 8. There is trace regurgitation of the bioprosthetic aortic valve. 9. The mitral valve has thickened leaflets. 10. There is trace mitral valve regurgitation. 11. Focal, predominantly fixed and calcified echodensity above anterior mitral valve leaflet. 12. Unable to estimate PA systolic pressure due to poor spectral resolution of tricuspid regurgitant jet. 13. Mild mitral annular calcification. Glaucoma Hyperlipidemia Hypertension Mitral valve prolapse Obsessive compulsive disorder Schizophrenia Ventricular septal defect Managed conservatively. Surgical History Surgical History History of aortic valve replacement with bioprosthetic valve History of bilateral cataract extraction History of coronary artery bypass graft x 2 (10/2011) GONZALEZ to LAD, left radial graft to obtuse marginal. Hx of CABG 2 vessel CABG October 2011 with GONZALEZ to LAD and left radial artery graft to obtuse marginal branch Family History Family History Mother Diabetes mellitus Adopted (not a blood relative) Father Adopted (not a blood relative) Cancer Social History Social History Social History: The patient is adopted so family history is unknown. The patient's legal guardian is Aicha Rogers. He lives in a usp in [place]. Primary care physician: Dr. Adrian Logan Code status: Full code Smoking packs per day: 1 Smoking cigarettes per day: 20.0 Years smoked: 30 Smoking pack-years:
[2021-10-09] MEDS: DIVALPROEX SODIUM SPRINKLE 125 MG CAP.DR 250 MG PO (16:37)
[2021-10-09 16:41] LABS: Glucose Point of Care 272 mg/dl (65-105)
[2021-10-09] MEDS: WARFARIN (*PBKC) 2.5 MG TABLET PO (17:00)
[2021-10-09] MEDS: OXYBUTYNIN CHLORIDE 5 MG TABLET PO (20:49)
[2021-10-09 20:54] LABS: Glucose Point of Care 193 mg/dl (65-105)
[2021-10-09 21:11] LABS: Add Urine Microscopic? YES; Bilirubin Urine Negative (Negative); Blood Urine Negative (Negative); Color Urine Light Yellow (Yellow); Glucose Urine UA 3+ (Negative); Ketones Urine Negative (Negative); Leukocyte Esterase Ur Trace (Negative); Nitrate Urine Negative (Negative); Protein Urine Negative (Negative)
[2021-10-09 21:21] LABS: Appearance Urine Sl Cloudy (Clear); RBC Urine None seen /hpf (0-2); WBC Urine 51-75 /hpf (0-3)
[2021-10-09 21:22] LABS: Bacteria Urine Trace /hpf; Squamous Epithelial Cell Urine None seen /hpf (Few)
[2021-10-09] MEDS: ARIPiprazole 5 MG TABLET 15 MG PO (21:23)
[2021-10-09] MEDS: INSULIN GLARGINE (*BKC) 100 UNITS/ML 28 UNITS SUB-Q (21:23)
[2021-10-10] VITALS (11 sets, daily range): BP systolic 104–137; BP diastolic 47–57; PULSE 58–86; RESP 18–20; TEMP 36.3; O2SAT 94–99
[2021-10-10] MEDS: IPRATROPIUM 0.5 MG/ALBUTEROL SULFATE 2.5 MG AMPUL.NEB 3 ML INHALATION ×3 (00:47→12:30)
[2021-10-10 05:44] LABS: Basophils Absolute Auto 0.03 K/mm3 (0.00-0.10); Basophils Percent Auto 0.4 % (0.0-1.0); Hematocrit 28.3 % (37.0-46.0); Hemoglobin 9.2 g/dL (12.4-15.3); Immature Granulocyte Absolute 0.02 K/mm3 (0.00-0.00); Immature Granulocyte Percent A 0.3 % (0.0-0.0); Lymphocytes Absolute Auto 2.17 K/mm3 (1.10-4.50); Lymphocytes Percent Auto 32.5 % (18.0-42.0); Mean Corpuscular HGB Conc 32.5 g/dL (32.0-36.0); Mean Corpuscular Volume 92.2 fL (78.0-102.0); Mean Platelet Volume 11.2 fl (8.7-11.0); Monocytes Absolute Auto 0.45 K/mm3 (0.10-0.90); Monocytes Percent Auto 6.7 % (2.0-11.0); Neutrophils Absolute Auto 3.8 K/mm3 (1.7-7.2); Neutrophils Percent Auto 57.1 % (50.0-70.0); Platelet Count Result 182 K/mm3 (150-420); Red Blood Count 3.07 M/mm3 (4.70-6.10); Red Cell Distribution Width 15.1 % (11.6-14.4); White Blood Count 6.7 K/mm3 (4.8-10.8)
[2021-10-10 05:57] LABS: INR 2.2; Prothrombin Time 22.9 Seconds (9.50-12.10)
[2021-10-10 05:58] LABS: Alanine Aminotransferase 7 U/L (16-63); Albumin Level 2.4 g/dL (3.4-5.0); Alkaline Phosphatase 61 U/L (46-116); Anion Gap 7 mmol/L (8-16); Aspartate Amino Transferase 10 U/L (15-37); Bilirubin,Total 0.2 mg/dL (0.00-1.00); Blood Urea Nitrogen 26 mg/dL (7-18); Calcium 8.2 mg/dL (8.5-10.1); Carbon Dioxide 23 mmol/L (21-32); Chloride 107 mmol/L (98-108); Estimated CRCL calculation 55 ml/min; Estimated Glomerular Filt Rate > 60; Glucose 178 mg/dL (70-99); Osmolality Calculated 292 mOsm/kg (285-295); Potassium 4.7 mmol/L (3.5-5.1); Sodium 137 mmol/L (136-145); Total Protein 5.9 g/dL (6.4-8.2)
[2021-10-10] MEDS: SODIUM CHLORIDE 0.9% IV 1,000 ML 100 ML IV CONT (06:19)
[2021-10-10 07:54] LABS: Glucose Point of Care 203 mg/dl (65-105)
[2021-10-10] MEDS: DIVALPROEX SODIUM SPRINKLE 125 MG CAP.DR 250 MG PO ×2 (09:27→16:07)
[2021-10-10] MEDS: ARIPiprazole 10 MG TABLET 15 MG PO (09:28)
[2021-10-10] MEDS: metFORMIN HCL XR 500 MG TAB.SR.24H PO (09:28)
[2021-10-10] MEDS: ATORVASTATIN 40 MG TABLET PO (09:28)
[2021-10-10] MEDS: PANTOPRAZOLE 40 MG TABLET PO (09:28)
[2021-10-10] MEDS: FENOFIBRATE NANOCRYSTALLIZED 145 MG TABLET PO (09:28)
[2021-10-10] MEDS: AZITHROMYCIN 250 MG TABLET PO (09:28)
[2021-10-10] MEDS: ASPIRIN 81 MG ENTERIC TABLET PO (09:28)
[2021-10-10] MEDS: LORATADINE 10 MG TABLET PO (09:28)
[2021-10-10] MEDS: ISOSORBIDE MONONITRATE 30 MG TAB.ER.24H PO (09:28)
[2021-10-10 11:49] LABS: Glucose Point of Care 240 mg/dl (65-105)
--- NOTE | 2021-10-10 12:36 | PM.DS ---
DS: Admitting Diagnosis Discharge Date 10/10/2021 <Jaquan GottiELLA todd-C - Last Filed: 10/10/21 14:03> Admitting Diagnosis Syncope and Collapse, Dehydration, Pneumonia <Jaquan GottiMITCH toddC - Last Filed: 10/10/21 14:03> DS: Discharge Diagnosis Discharge Diagnosis (1) Syncope and collapse: Code(s): R55 - Syncope and collapse <Jaquan Skinner ELLA Noyola-C - Last Filed: 10/10/21 14:03> Status: Acute <Jaquan GottiELLA todd-C - Last Filed: 10/10/21 14:03> Assessment and Plan: Monitor VS, Orthostatic VS Qshift, Cardiac Monitoring, Pt no longer dizzy 10/10/2021 Orthostatics Lay: 104/56 HR 58, Sit 106/47 HR 62, Stand 107/48 HR 68, no episodes of dizziness, syncope. <Jaquan NavaKeiry Noyola APN-C - Last Filed: 10/10/21 14:03> (2) Acute dehydration: Code(s): E86.0 - Dehydration <Jaquan NavaKeiry Noyola APN-C - Last Filed: 10/10/21 14:03> Status: Acute <Jaquan NavaKeiry Noyola APN-C - Last Filed: 10/10/21 14:03> Assessment and Plan: 1 Liter NS bolus in ER with continuation of same at 100 ml/h, Taking PO fluids well 10/10/2021 Pt is taking PO fluids and solids well. <Jaquan NavaKeiry Noyola APN-Ugo - Last Filed: 10/10/21 14:03> (3) Pneumonia: Qualifiers: Laterality: bilateral Lung location: lower lobe of lung Pneumonia type: due to unspecified organism Qualified Code(s): J18.9 - Pneumonia, unspecified organism <Jaquan NavaMITCH CochranC - Last Filed: 10/10/21 14:03> Code(s): J18.9 - Pneumonia, unspecified organism <Jaquan NavaKeiry Noyola APN-C - Last Filed: 10/10/21 14:03> Status: Acute <Jaquan ElijahKeiry Noyola APN-C - Last Filed: 10/10/21 14:03> Assessment and Plan: CRX rad report: IMPRESSION: 1. Small pleural effusions with slight improvement on the left. 2. Bibasilar airspace opacities with slight improvement on the left, likely atelectasis. Rocephin and Azithromycin given in ER, WBC 6.6, no appreciable shift at this time, no supplemental oxygen, SpO2 97%, will monitor respiratory status throughout the night, Blood Cx pending 10/10/2021 Will DC home with Azithromycin to finish course. <SHELTON Wright - Last Filed: 10/10/21 14:03> (4) Chronic anticoagulation: Code(s): Z79.01 - manager long term care (current) use of anticoagulants <SHELTON Wright - Last Filed: 10/10/21 14:03> Status: Acute <SHELTON Wright - Last Filed: 10/10/21 14:03> Assessment and Plan: Bioprosthetic Heart Valve, past CVA, continue Coumadin and monitor daily PT/INR. <SHELTON Wright - Last Filed: 10/10/21 14:03> (5) Hypertension: Qualifiers: Hypertension type: essential hypertension Qualified Code(s): I10 - Essential (primary) hypertension <SHELTON Wright - Last Filed: 10/10/21 14:03> Code(s): I10 - Essential (primary) hypertension <SHELTON Wright - Last Filed: 10/10/21 14:03> Status: Acute <SHELTON Wright - Last Filed: 10/10/21 14:03> Assessment and Plan: Hold Lasix d/t Dehydration, VSS at this time, lungs clear 10/10/2021 VSS, orthostatic good <SHELTON Wright - Last Filed: 10/10/21 14:03> (6) Hyperlipidemia: Code(s): E78.5 - Hyperlipidemia, unspecified <SHELTON Wright - Last Filed: 10/10/21 14:03> Status: Acute <SHELTON Wright - Last Filed: 10/10/21 14:03> Assessment and Plan: Continue Atorvastatin <SHELTON Wright - Last Filed: 10/10/21 14:03> (7) Diabetes mellitus, with long-term current use of insulin: Qualifiers: Diabetes mellitus complication status: without complication Diabetes mellitus type: type 2 Qualified Code(s): E11.9 - Type 2 diabetes mellitus without complications; Z79.4 - halfway (current) use of insulin <SHELTON Wright - Last Filed: 10/10/21 14:03> Code(s): E11.9 - Type 2 diabetes mellitus without complications; Z79.4
[2021-10-10] MEDS: WARFARIN (*PBKC) 5 MG TABLET PO (16:07)
--- NOTE | 2021-10-10 16:20 | PC.NURSE ---
Discharge instructions given to patient and care home care staff/director of purchasing. Patient taken from floor by wheelchair. Picked up by Gadiel from [facility] home care
--- NOTE | 2021-10-11 11:15 | PC.NURSE ---
Skilled Nursing care employee says she received and understood the discharge instructions. Has on other comments.
== END 2021-10-10 16:20 | DRG 194 ==
LOC: CHSED 10:33 → CHS2ND 10:54
PROVIDERS: Nurse Practitioner Family; Admitting Provider Emergency Medicine; Emergency Provider Emergency Medicine; Visit Provider Emergency Medicine
DX: J18.9 Pneumonia, unspecified organism (principal); I50.30 Unspecified diastolic (congestive) heart failure; I48.20 Chronic atrial fibrillation, unspecified; Q21.0 Ventricular septal defect; I11.0 Hypertensive heart disease with heart failure; I25.10 Atherosclerotic heart disease of native coronary artery without angina pectoris; D64.9 Anemia, unspecified; H40.9 Unspecified glaucoma; E86.0 Dehydration; E78.5 Hyperlipidemia, unspecified; E11.9 Type 2 diabetes mellitus without complications; F42.9 Obsessive-compulsive disorder, unspecified; F20.9 Schizophrenia, unspecified; Z79.4 Long term (current) use of insulin; Z86.73 Personal history of transient ischemic attack (TIA), and cerebral infarction without residual deficits; Z95.1 Presence of aortocoronary bypass graft; Z95.4 Presence of other heart-valve replacement; Z79.01 Long term (current) use of anticoagulants; Z87.891 Personal history of nicotine dependence
CPT/HCPCS: 36415; 70450; 71046; 80053; 81001; 82948; 83605; 84484; 85025; 85610; 85730; 86140; 87040; 93005; 94640; 96360; 99285; A9270; J0456; J0696; J1815; J7030

== ENCOUNTER 2021-11-24 07:42 | Outpatient (RCR) | payer MEDICARE, SELFPAY ==
[2021-09-02 08:44] LABS: INR 2.2; Prothrombin Time 23.1 Seconds (9.50-12.10)
[2021-09-30 09:37] LABS: INR 2.2; Prothrombin Time 22.7 Seconds (9.50-12.10)
[2021-10-28 09:09] LABS: INR 2.1; Prothrombin Time 21.4 Seconds (9.50-12.10)
[2021-11-24 08:07] LABS: INR 2.2; Prothrombin Time 22.6 Seconds (9.50-12.10)
== END 2021-12-01 23:59 | disposition home or self-care (01) ==
LOC: CHSLAB 07:42
PROVIDERS: Visit Provider Internal Medicine Cardiovascular Disease
DX: Z79.01 Long term (current) use of anticoagulants (principal); Z95.3 Presence of xenogenic heart valve
CPT/HCPCS: 36415; 85610

== ENCOUNTER 2021-12-03 13:28 | Emergency (ER) | payer MEDICARE, MEDICAID, SELFPAY ==
--- NOTE | ~2021-12-03 | XR_ITS ---
EXAMINATION: XR chest 1V portable DATE: 12/03/2021 14:31 INDICATION: Shortness of breath. TECHNIQUE: A single frontal view of the chest was obtained. COMPARISON: Chest 2 views 10/09/2021, CT abdomen and pelvis 04/24/2021 FINDINGS: There are airspace opacities in the lower lung zones. There is a small left pleural effusio n. No pneumothorax. Cardiomegaly is noted. Median sternotomy wires and mediastinal surgical clips are seen, likely from prior coronary artery bypass grafting. IMPRESSION: 1. Stable airspace opacities in the lower lung zones, likely atelectasis/scarring. 2. Stable small left pleural effusion. 3. Cardiomegaly. Reviewed, dictated and finalized at location E. ORT ASSISTANT IMPRESSION: 1. Stable airspace opacities in the lower lung zones, likely atelectasis/scarri ng. 2. Stable small left pleural effusion. 3. Cardiomegaly.
--- NOTE | ~2021-12-03 | CT_ITS ---
EXAMINATION: CT abdomen pelvis w con EXAM DATE: 12/03/2021 15:39 INDICATION: LUQ abdominal pain couple of days. No other complaints TECHNIQUE: Spiral CT of the abdomen and pelvis was performed following intravenous injection of 100 m L Omnipaque 350. Axial, coronal and sagittal images of the abdomen and pelvis were reviewed. The do se-length product (DLP) for this examination was 731.21 mGy-cm. The exposure was tailored according to patient size (auto mA exposure control), and iterative reconstruction (ASIR) was used as additiona l dose reduction technique. Comparison is made to prior examination from 04/24/2021. FINDINGS: The liver, spleen, adrenal glands and pancreas are unremarkable. Gallbladder is unremarkab le. No biliary obstruction. Portal and splenic veins are patent. Kidneys enhance symmetrically. T here is no hydronephrosis. The prostate is unremarkable. Some diffuse bladder wall thickening, cou ld indicate chronic cystitis. Acute cystitis not excludable. There is no retroperitoneal or pelvic l ymphadenopathy. There is mild to moderate scattered arteriosclerotic disease. There is small to mod erate-sized umbilical fat-containing hernia. There are no findings to suggest appendicitis. The stomach and small bowel are unremarkable. There is moderate amount of colonic stool. The rectal vault measures 7 cm in diameter. No free intraperit varghese gas. Mild cardiomegaly. There are sternotomy wires. There is small left pleural effusion with pleural thickening, chronic and not significantly changed compared to prior study. There is right lo wer lobe posterior sulcal groundglass density, could be atelectasis, interstitial lung disease or pne umonia, mild progression in appearance compared to March. There are no osteoblastic or osteolytic les ions identified. IMPRESSION: 1. Distended rectal vault and moderate colonic stool proximal to this. 2. Right lower lobe groundglass opacity, chronic or acute on chronic. 3. Chronic small left pleural effusion. 4. Mild bladder wall thickening, acute or chronic cystitis. gender prostate Reviewed, dictated and finalized at location G. ATRIC ORTHODONTIST IMPRESSION: 1. Distended rectal vault and moderate colonic stool proximal to this. 2. Right lower lobe groundglass opacity, chronic or acute on chronic. 3. Chronic small left pleural effusion. 4. Mild bladder wall thickening, acute or chronic cystitis. gender prost ate
[2021-12-03 13:30] VITALS: BP 155/70; PULSE 76; RESP 20; TEMP 36.8; O2SAT 98
--- NOTE | 2021-12-03 13:54 | ECG_ITS ---
Measurements Intervals [place] Rate: 67 P: 66 CA: 198 QRS: 26 QRSD: 168 T: 104 QT: 448 QTc: 476 Interpretive Statements SINUS RHYTHM LEFT BUNDLE BRANCH BLOCK BASELINE WANDER- I, AVR, AVL, AVF ABNORMAL ECG Electronically Signed On 12-03-2021 15:25:50 WINDOWS SERVER SPECIALIST by Brooks Ordoñez D.O.
[2021-12-03 13:58] LABS: Glucose Point of Care 431 mg/dl (65-105)
[2021-12-03] MEDS: INSULIN HUMAN REGULAR (*BKC) 100 UNITS/ML 12 UNITS IV PUSH (14:21)
[2021-12-03] MEDS: SODIUM CHLORIDE 0.9% IV 1,000 ML 999 ML IV CONT (14:21)
[2021-12-03 14:24] LABS: Basophils Absolute Auto 0.03 K/mm3 (0.00-0.10); Basophils Percent Auto 0.4 % (0.0-1.0); Eosinophils Absolute Auto 0.15 K/mm3 (0.02-0.50); Eosinophils Percent Auto 1.8 % (1.0-6.0); Hematocrit 34.9 % (37.0-46.0); Hemoglobin 11.6 g/dL (12.4-15.3); Immature Granulocyte Absolute 0.02 K/mm3 (0.00-0.00); Immature Granulocyte Percent A 0.2 % (0.0-0.0); Lymphocytes Absolute Auto 2.41 K/mm3 (1.10-4.50); Lymphocytes Percent Auto 29.7 % (18.0-42.0); Mean Corpuscular HGB Conc 33.2 g/dL (32.0-36.0); Mean Corpuscular Hemoglobin 29.7 pg (27.0-31.0); Mean Corpuscular Volume 89.3 fL (78.0-102.0); Mean Platelet Volume 11.6 fl (8.7-11.0); Monocytes Absolute Auto 0.51 K/mm3 (0.10-0.90); Monocytes Percent Auto 6.3 % (2.0-11.0); Neutrophils Percent Auto 61.6 % (50.0-70.0); Platelet Count Result 226 K/mm3 (150-420); Red Blood Count 3.91 M/mm3 (4.70-6.10); Red Cell Distribution Width 14.4 % (11.6-14.4); White Blood Count 8.1 K/mm3 (4.8-10.8)
[2021-12-03 14:39] LABS: Acetone Negative (Negative)
[2021-12-03 14:43] LABS: Add Urine Microscopic? YES; Appearance Urine Clear (Clear); Bilirubin Urine Negative (Negative); Blood Urine Negative (Negative); Color Urine Light Yellow (Yellow); Glucose Urine UA 3+ (Negative); Ketones Urine Negative (Negative); Leukocyte Esterase Ur Negative (Negative); Nitrate Urine Negative (Negative); Protein Urine Negative (Negative); Specific Grav Ur 1.015 (1.010-1.020); Urobilinogen Urine 0.2 mg/dL (0.2-1.0)
[2021-12-03 14:45] LABS: Alanine Aminotransferase 15 U/L (16-63); Albumin Level 3.3 g/dL (3.4-5.0); Alkaline Phosphatase 64 U/L (46-116); Anion Gap 5 mmol/L (8-16); Aspartate Amino Transferase 34 U/L (15-37); Bilirubin,Total 0.4 mg/dL (0.00-1.00); Blood Urea Nitrogen 41 mg/dL (7-18); Carbon Dioxide 29 mmol/L (21-32); Chloride 104 mmol/L (98-108); Estimated CRCL calculation 43 ml/min; Estimated Glomerular Filt Rate 56; Glucose 358 mg/dL (70-99); Osmolality Calculated 310 mOsm/kg (285-295); Potassium 5.1 mmol/L (3.5-5.1); Sodium 138 mmol/L (136-145); Total Protein 7.3 g/dL (6.4-8.2)
[2021-12-03 14:48] LABS: Lactic Acid Reflex 1.8 mmol/L (0.4-2.0)
[2021-12-03 14:49] LABS: Bacteria Urine None seen /hpf; RBC Urine 0-2 /hpf (0-2); Squamous Epithelial Cell Urine Rare /hpf (Few); WBC Urine 0-3 /hpf (0-3)
[2021-12-03 15:10] LABS: Glucose Point of Care 139 mg/dl (65-105)
[2021-12-03 15:17] LABS: Troponin I 18.5 ng/L (0.00-60.4)
[2021-12-03] MEDS: KETOROLAC (*BKC) 60 MG/2 ML VIAL IM (15:20)
--- NOTE | 2021-12-03 15:21 | PC.NURSE ---
pt complaint of lower left abdominal pain, states he pulled a muscle last week. denies nausea or vomiting.
[2021-12-03 15:47] VITALS: BP 149/57; PULSE 62; RESP 20; O2SAT 100
--- NOTE | 2021-12-03 16:17 | ED.GENADULT ---
HPI - General Adult General Chief complaint: Unspecified Stated complaint: ambulance Time Seen by Provider: 12/03/21 13:30 Source: patient, EMS and RN notes reviewed Mode of arrival: EMS Limitations: no limitations History of Present Illness MD complaint: Blood glucose was elevated. pt was otherwise asymptomatic. Onset (ago): hour(s) (2) Location: abdomen Radiation: non-radiation Severity: mild (LUQ abdominal pain) Severity scale (1-10): 6 Quality: aching and dull Pain Consistency: constant Relieving factors: none Exacerbating factors: none Associated symptoms: denies other symptoms Treatments prior to arrival: none Related Data Home Medications Medication Instructions Recorded Confirmed aripiprazole 15 mg PO HS 02/04/20 12/03/21 aspirin [Aspirin Low Dose] 81 mg PO DAILY 02/04/20 12/03/21 divalproex 250 mg PO BID 02/04/20 12/03/21 fenofibrate nanocrystallized 145 mg PO DAILY 02/04/20 12/03/21 insulin lispro [Humalog KwikPen See Rx Instructions .ROUTE .COMPLEX 02/04/20 12/03/21 Insulin] ipratropium-albuterol 3 ml INHALATION Q6H 02/04/20 12/03/21 loratadine 10 mg PO DAILY 02/04/20 12/03/21 metformin 500 mg PO DAILY 02/04/20 12/03/21 pantoprazole 40 mg PO DAILY 02/04/20 12/03/21 warfarin 2.5 mg PO HS 02/04/20 12/03/21 warfarin 5 mg PO HS 02/04/20 12/03/21 insulin syringe-needle U-100 04/23/21 12/03/21 [TRUEplus Insulin] isosorbide mononitrate 30 mg PO DAILY 04/23/21 12/03/21 oxybutynin chloride 5 mg PO HS 04/23/21 12/03/21 donepezil [Aricept] 5 mg PO HS 12/03/21 12/03/21 Allergies Allergy/AdvReac Type Severity Reaction Status Date / Time pear Allergy Unknown Verified 10/09/21 09:03 strawberry Allergy Unknown Verified 10/09/21 09:03 NKDA AdvReac Unknown Uncoded 09/12/21 08:46 Review of Systems Review of Systems: All systems reviewed & are unremarkable except as noted in HPI and below PMFSH Past Medical History Medical History Atrial fibrillation Postoperatively after CABG with bioprosthetic aortic valve replacement. Chronic anemia Chronic anticoagulation Coumadin. Chronic cystitis Coronary artery disease (~10/2011) Status post CABG. CVA (cerebral vascular accident) Chronic thalamic infarct Diabetes mellitus, with long-term current use of insulin Hemoglobin A1c was 7.2% in September 2020. Diastolic congestive heart failure, NYHA class 2 Echocardiogram August 2019: 1. Left ventricular systolic function is normal, estimated at 60-65%. 2. There is mildly increased left ventricular wall thickness. 3. Left ventricular septal wall motion is abnormal with septal motion related to bundle branch block. 4. The left ventricular diastolic function is grade II diastolic dysfunction. 5. Probable perimembranous VSD peak velocity 5.3 m/sec 110 mmHg gradient, however, not well visualized on this study. 6. The bioprosthetic aortic valve is not well visualized. 7. There is no bioprosthetic aortic valve stenosis. 8. There is trace regurgitation of the bioprosthetic aortic valve. 9. The mitral valve has thickened leaflets. 10. There is trace mitral valve regurgitation. 11. Focal, predominantly fixed and calcified echodensity above anterior mitral valve leaflet. 12. Unable to estimate PA systolic pressure due to poor spectral resolution of tricuspid regurgitant jet. 13. Mild mitral annular calcification. Glaucoma Hyperlipidemia Hypertension Mitral valve prolapse Obsessive compulsive disorder Schizophrenia Ventricular septal defect Managed conservatively. Surgical History Surgical History History of aortic valve replacement with bioprosthetic valve History of bilateral cataract extraction History of coronary artery bypass graft x 2 (10/2011) GONZALEZ to LAD, left radial graft to obtuse marginal. Hx of CABG 2 vessel CABG October 2011 with GONZALEZ to LAD and left radial artery graft to obtus
[2021-12-03 16:21] LABS: Glucose Point of Care 83 mg/dl (65-105)
--- NOTE | 2021-12-03 16:25 | PC.NURSE ---
food tray given to pt.
--- NOTE | 2021-12-03 16:29 | PC.NURSE ---
guardian called and updated on condition. will call [facility] for transport home.
[2021-12-03 16:32] VITALS: BP 158/59; PULSE 88; RESP 20; TEMP 36.7; O2SAT 97
--- NOTE | 2021-12-03 17:04 | PC.NURSE ---
pt departed with susie. alert and stable
== END 2021-12-03 17:04 | disposition home or self-care (01) ==
PROVIDERS: Emergency Provider Emergency Medicine
DX: E11.65 Type 2 diabetes mellitus with hyperglycemia (principal); N30.20 Other chronic cystitis without hematuria; Z79.01 Long term (current) use of anticoagulants; I48.20 Chronic atrial fibrillation, unspecified; I25.10 Atherosclerotic heart disease of native coronary artery without angina pectoris; E78.5 Hyperlipidemia, unspecified; I10 Essential (primary) hypertension; Z87.891 Personal history of nicotine dependence
CPT/HCPCS: 36415; 71045; 74177; 80053; 81001; 82010; 82948; 83605; 84484; 85025; 93005; 96361; 96372; 96374; 99284; J1815; J1885; J7030; Q9967

== ENCOUNTER 2022-01-30 09:35 | Emergency (ER) | payer MEDICARE, MEDICAID, SELFPAY ==
[2022-01-30 09:35] VITALS: BP 101/49; PULSE 60; RESP 16; TEMP 36; O2SAT 98
--- NOTE | 2022-01-30 09:40 | ED.DIZZY ---
HPI - Dizziness General Chief Complaint: Unspecified Stated Complaint: ambulance Time Seen by Provider: 01/30/22 09:43 Source: patient, EMS and RN notes reviewed Mode of arrival: EMS Limitations: no limitations History of Present Illness HPI Narrative: Patient presents after feeling dizzy and wobbly. They found his blood sugar to be elevated at the snf. They did give him 6 units of insulin. On arrival here his blood sugars improved. He said he vomited once while he was feeling dizzy. MD elicited complaint: dizziness Onset (ago): hour(s) (1) Timing: sudden onset Severity: moderate Description: room spinning History of similar symptoms: Yes Exacerbating factors: movement/ambulation Relieving factors: rest Associated symptoms: vomiting (X1) Related Data Home Medications Medication Instructions Recorded Confirmed aripiprazole 15 mg PO HS 02/04/20 01/30/22 aspirin [Aspirin Low Dose] 81 mg PO DAILY 02/04/20 01/30/22 divalproex 250 mg PO BID 02/04/20 01/30/22 fenofibrate nanocrystallized 145 mg PO DAILY 02/04/20 01/30/22 insulin lispro [Humalog KwikPen See Rx Instructions .ROUTE .COMPLEX 02/04/20 01/30/22 Insulin] ipratropium-albuterol 3 ml INHALATION Q6H 02/04/20 01/30/22 loratadine 10 mg PO DAILY 02/04/20 01/30/22 metformin 500 mg PO DAILY 02/04/20 01/30/22 pantoprazole 40 mg PO DAILY 02/04/20 01/30/22 warfarin 2.5 mg PO HS 02/04/20 01/30/22 warfarin 5 mg PO HS 02/04/20 01/30/22 insulin syringe-needle U-100 04/23/21 12/03/21 [TRUEplus Insulin] isosorbide mononitrate 30 mg PO DAILY 04/23/21 01/30/22 oxybutynin chloride 5 mg PO HS 04/23/21 01/30/22 donepezil [Aricept] 5 mg PO HS 12/03/21 01/30/22 Allergies Allergy/AdvReac Type Severity Reaction Status Date / Time pear Allergy Unknown Verified 01/30/22 09:51 strawberry Allergy Unknown Verified 01/30/22 09:51 NKDA AdvReac Unknown Uncoded 09/12/21 08:46 Review of Systems Review of Systems: All systems reviewed & are unremarkable except as noted in HPI and below PMFSH Past Medical History Medical History Atrial fibrillation Postoperatively after CABG with bioprosthetic aortic valve replacement. Chronic anemia Chronic anticoagulation Coumadin. Chronic cystitis Coronary artery disease (~10/2011) Status post CABG. CVA (cerebral vascular accident) Chronic thalamic infarct Diabetes mellitus, with long-term current use of insulin Hemoglobin A1c was 7.2% in September 2020. Diastolic congestive heart failure, NYHA class 2 Echocardiogram August 2019: 1. Left ventricular systolic function is normal, estimated at 60-65%. 2. There is mildly increased left ventricular wall thickness. 3. Left ventricular septal wall motion is abnormal with septal motion related to bundle branch block. 4. The left ventricular diastolic function is grade II diastolic dysfunction. 5. Probable perimembranous VSD peak velocity 5.3 m/sec 110 mmHg gradient, however, not well visualized on this study. 6. The bioprosthetic aortic valve is not well visualized. 7. There is no bioprosthetic aortic valve stenosis. 8. There is trace regurgitation of the bioprosthetic aortic valve. 9. The mitral valve has thickened leaflets. 10. There is trace mitral valve regurgitation. 11. Focal, predominantly fixed and calcified echodensity above anterior mitral valve leaflet. 12. Unable to estimate PA systolic pressure due to poor spectral resolution of tricuspid regurgitant jet. 13. Mild mitral annular calcification. Glaucoma Hyperlipidemia Hypertension Mitral valve prolapse Obsessive compulsive disorder Schizophrenia Ventricular septal defect Managed conservatively. Surgical History Surgical History History of aortic valve replacement with bioprosthetic valve History of bilateral cataract extraction History of coronary artery bypass graft x 2 (10/2011) GONZALEZ to LAD,
[2022-01-30 09:51] LABS: Glucose Point of Care 192 mg/dl (65-105)
[2022-01-30 10:06] LABS: Basophils Absolute Auto 0.03 K/mm3 (0.00-0.10); Basophils Percent Auto 0.4 % (0.0-1.0); Eosinophils Absolute Auto 0.09 K/mm3 (0.02-0.50); Eosinophils Percent Auto 1.1 % (1.0-6.0); Hematocrit 34.5 % (37.0-46.0); Hemoglobin 11.2 g/dL (12.4-15.3); Immature Granulocyte Absolute 0.06 K/mm3 (0.00-0.00); Immature Granulocyte Percent A 0.8 % (0.0-0.0); Lymphocytes Absolute Auto 1.46 K/mm3 (1.10-4.50); Lymphocytes Percent Auto 18.4 % (18.0-42.0); Mean Corpuscular HGB Conc 32.5 g/dL (32.0-36.0); Mean Corpuscular Hemoglobin 28.9 pg (27.0-31.0); Mean Corpuscular Volume 89.1 fL (78.0-102.0); Mean Platelet Volume 10.1 fl (8.7-11.0); Monocytes Absolute Auto 0.42 K/mm3 (0.10-0.90); Monocytes Percent Auto 5.3 % (2.0-11.0); Neutrophils Absolute Auto 5.9 K/mm3 (1.7-7.2); Platelet Count Result 187 K/mm3 (150-420); Red Blood Count 3.87 M/mm3 (4.70-6.10); White Blood Count 7.9 K/mm3 (4.8-10.8)
[2022-01-30 10:09] LABS: Add Urine Microscopic? YES; Appearance Urine Clear (Clear); Bilirubin Urine Negative (Negative); Blood Urine Negative (Negative); Color Urine Yellow (Yellow); Glucose Urine UA 2+ (Negative); Ketones Urine Negative (Negative); Leukocyte Esterase Ur Negative LEU/UL (Negative); Nitrate Urine Negative (Negative); Protein Urine Trace (Negative)
[2022-01-30 10:15] LABS: Bacteria Urine None seen /hpf; RBC Urine 0-2 /hpf (0-2); Squamous Epithelial Cell Urine None seen /hpf (Few); WBC Urine 0-3 /hpf (0-3)
[2022-01-30 10:16] LABS: Mucus Urine Noted /lpf
[2022-01-30 10:21] LABS: Alanine Aminotransferase 13 U/L (16-63); Albumin Level 3.2 g/dL (3.4-5.0); Alkaline Phosphatase 46 U/L (46-116); Anion Gap 7 mmol/L (8-16); Aspartate Amino Transferase 14 U/L (15-37); Bilirubin,Total 0.5 mg/dL (0.00-1.00); Blood Urea Nitrogen 31 mg/dL (7-18); Calcium 8.8 mg/dL (8.5-10.1); Carbon Dioxide 27 mmol/L (21-32); Chloride 101 mmol/L (98-108); Estimated CRCL calculation 43 ml/min; Estimated Glomerular Filt Rate 52; Glucose 279 mg/dL (70-99); Magnesium 1.9 mg/dL (1.8-2.4); Osmolality Calculated 296 mOsm/kg (285-295); Potassium 4.3 mmol/L (3.5-5.1); Sodium 135 mmol/L (136-145); Total Protein 6.5 g/dL (6.4-8.2)
--- NOTE | 2022-01-30 10:33 | PC.NURSE ---
PT REPORTS HIS ABD HURTS, I DONT FEEL GOOD. ERP IS AWARE, LISA PROVIDED. WILL CONTINUE TO MONITOR.
[2022-01-30 10:56] VITALS: BP 130/92; PULSE 86; RESP 16; O2SAT 96
[2022-01-30] MEDS: ONDANSETRON HCL ODT 4 MG TABLET PO (11:20)
[2022-01-30 11:24] LABS: Glucose Point of Care 255 mg/dl (65-105)
--- NOTE | 2022-01-30 11:24 | PC.NURSE ---
PT IS REPORTING NAUSEA, REQUESTING LUNCH. MEDICATION ADMINISTERED ORDERED WITHOUT DIFFICULTY. ADVISED TO WAIT FOR FOOD. EMS NOTIFIED AT 1120 FOR TRANSPORT BACK HOME. WILL CONTINUE TO MONITOR. FSBS 255 AT THIS TIME.
[2022-01-30 11:38] VITALS: BP 133/86; PULSE 86; RESP 16; TEMP 36.6; O2SAT 98
== END 2022-01-30 11:24 ==
PROVIDERS: Emergency Provider Emergency Medicine
DX: R42 Dizziness and giddiness (principal); I48.91 Unspecified atrial fibrillation; Z79.01 Long term (current) use of anticoagulants; I25.10 Atherosclerotic heart disease of native coronary artery without angina pectoris; E11.9 Type 2 diabetes mellitus without complications; Z79.4 Long term (current) use of insulin; E78.5 Hyperlipidemia, unspecified; I10 Essential (primary) hypertension; Z87.891 Personal history of nicotine dependence
CPT/HCPCS: 36415; 80053; 81001; 82948; 83735; 85025; 99283; A9270

== ENCOUNTER 2022-03-17 08:55 | Outpatient (RCR) | payer MEDICARE, SELFPAY ==
[2021-12-22 09:23] LABS: INR 1.6; Prothrombin Time 16.5 Seconds (9.50-12.10)
[2022-01-05 09:23] LABS: INR 1.8; Prothrombin Time 18.4 Seconds (9.50-12.10)
[2022-02-02 09:23] LABS: INR 1.4; Prothrombin Time 14.6 Seconds (9.50-12.10)
[2022-02-09 09:37] LABS: INR 1.5
[2022-02-17 10:00] LABS: INR 2.2; Prothrombin Time 22.8 Seconds (9.50-12.10)
[2022-03-03 09:58] LABS: INR 1.6; Prothrombin Time 17.1 Seconds (9.50-12.10)
[2022-03-10 09:45] LABS: INR 1.4; Prothrombin Time 14.9 Seconds (9.50-12.10)
[2022-03-17 09:21] LABS: INR 1.8; Prothrombin Time 18.9 Seconds (9.50-12.10)
== END 2022-03-22 23:59 | disposition home or self-care (01) ==
LOC: CHSLAB 08:55
PROVIDERS: Nurse Practitioner Family; PCP Family Medicine; Visit Provider Internal Medicine Cardiovascular Disease
DX: Z79.01 Long term (current) use of anticoagulants (principal); Z95.3 Presence of xenogenic heart valve
CPT/HCPCS: 36415; 85610

== ENCOUNTER 2022-05-05 08:49 | Outpatient (RCR) | payer MEDICARE, SELFPAY ==
[2022-03-24 09:23] LABS: INR 1.8; Prothrombin Time 18.2 Seconds (9.50-12.10)
[2022-04-07 09:34] LABS: INR 2.5; Prothrombin Time 25.9 Seconds (9.50-12.10)
[2022-05-05 09:17] LABS: INR 3.1; Prothrombin Time 31.2 Seconds (9.50-12.10)
== END 2022-06-22 23:59 | disposition home or self-care (01) ==
LOC: CHSLAB 08:49
PROVIDERS: PCP Internal Medicine Cardiovascular Disease; Visit Provider Internal Medicine Cardiovascular Disease
DX: Z79.01 Long term (current) use of anticoagulants (principal); Z95.3 Presence of xenogenic heart valve
CPT/HCPCS: 36415; 85610

== ENCOUNTER 2022-06-02 07:15 | Outpatient (CLI) | payer MEDICARE, SELFPAY ==
[2022-06-02 07:57] LABS: Basophils Absolute Auto 0.04 K/mm3 (0.00-0.10); Basophils Percent Auto 0.5 % (0.0-1.0); Eosinophils Percent Auto 3.7 % (1.0-6.0); Hematocrit 32.8 % (37.0-46.0); Hemoglobin 10.6 g/dL (12.4-15.3); Immature Granulocyte Absolute 0.03 K/mm3 (0.00-0.00); Immature Granulocyte Percent A 0.4 % (0.0-0.0); Immature Platelet Fraction Pct 9.6 % (1.0-7.0); Lymphocytes Percent Auto 43.5 % (18.0-42.0); Mean Corpuscular HGB Conc 32.3 g/dL (32.0-36.0); Mean Corpuscular Hemoglobin 29.5 pg (27.0-31.0); Mean Corpuscular Volume 91.4 fL (78.0-102.0); Monocytes Absolute Auto 0.47 K/mm3 (0.10-0.90); Monocytes Percent Auto 5.8 % (2.0-11.0); Neutrophils Absolute Auto 3.7 K/mm3 (1.7-7.2); Neutrophils Percent Auto 46.1 % (50.0-70.0); Platelet Count Result 79 K/mm3 (150-420); Red Blood Count 3.59 M/mm3 (4.70-6.10); Red Cell Distribution Width 15.5 % (11.6-14.4)
[2022-06-02 08:06] LABS: INR 2.7; Prothrombin Time 27.6 Seconds (9.50-12.10)
[2022-06-02 08:08] LABS: Hemoglobin A1C 7.2 % (<5.7)
[2022-06-02 08:13] LABS: Alanine Aminotransferase 8 U/L (16-63); Alkaline Phosphatase 55 U/L (46-116); Anion Gap 9 mmol/L (8-16); Aspartate Amino Transferase 17 U/L (15-37); Bilirubin,Total 0.4 mg/dL (0.00-1.00); Blood Urea Nitrogen 37 mg/dL (7-18); Calcium 8.7 mg/dL (8.5-10.1); Carbon Dioxide 24 mmol/L (21-32); Chloride 109 mmol/L (98-108); Cholesterol 113 mg/dL (0-200); Estimated Glomerular Filt Rate > 60; Free T4 Free Thyroxine 0.99 ng/dL (0.76-1.46); Glucose 180 mg/dL (70-99); HDL Direct 48 mg/dL (40-60); LDL Cholesterol Calculated 54 mg/dL (<130); Osmolality Calculated 307 mOsm/kg (285-295); Potassium 4.3 mmol/L (3.5-5.1); Sodium 142 mmol/L (136-145); Thyroid Stimulating Hormone 2.76 uIU/mL (0.36-3.74); Total Protein 6.8 g/dL (6.4-8.2); Triglycerides 54 mg/dL (0-150)
== END 2022-06-02 07:16 | disposition home or self-care (01) ==
LOC: CHSLAB 07:18
PROVIDERS: PCP Family Medicine; Visit Provider Internal Medicine Cardiovascular Disease
DX: Z79.01 Long term (current) use of anticoagulants (principal); Z95.3 Presence of xenogenic heart valve; Z79.899 Other long term (current) drug therapy; G30.1 Alzheimer's disease with late onset; F20.0 Paranoid schizophrenia
CPT/HCPCS: 36415; 80053; 80061; 83036; 84439; 84443; 85025; 85055; 85610

== ENCOUNTER 2022-06-02 07:52 | Emergency (ER) | payer MEDICARE, MEDICAID, SELFPAY ==
--- NOTE | ~2022-06-02 | CT_ITS ---
EXAMINATION: CT brain wo con DATE: 06/02/2022 09:00 INDICATION: Near syncope. TECHNIQUE: Computed tomography (CT) of the head was performed without intravenous contrast. The mA wa s adjusted according to patient size. Iterative reconstruction technique was employed. The dose-lengt h product was 529.67 mGy-cm. COMPARISON: Head CT 10/09/2021 FINDINGS: There is no intracranial hemorrhage, acute infarction, or abnormal intracranial mass lesion . There is a prominent perivascular space in the right basal ganglia. There is an old lacunar infarct in the right thalamus. The ventricles are normal in size. There is mild mucosal thickening in the et hmoid sinuses. There are trace bilateral mastoid effusions. There are likely changes of ocular lens r eplacement surgeries. IMPRESSION: 1. Old lacunar infarct in the right thalamus. Reviewed, dictated and finalized at location A.
[2022-06-02 08:00] VITALS: BP 113/52; PULSE 74; RESP 20; TEMP 36.9; O2SAT 98
--- NOTE | 2022-06-02 08:12 | ED.DIZZY ---
HPI - Dizziness General Chief Complaint: Unspecified Stated Complaint: FEELS FAINT Time Seen by Provider: 06/02/22 08:12 Source: patient Mode of arrival: ambulatory History of Present Illness HPI Narrative: 76-year-old male with a history of hypertension, diabetes mellitus, dyslipidemia, coronary artery disease status post CABG/ AVR, VSD, atrial fibrillation on anticoagulation, diastolic CHFCVA with a thalamic infarct, CKD, chronic anemia,schizophrenia, OCD presented to the hospital for routine blood work. After the blood draw the patient complained of -- dizziness. He had a fingerstick done which was noted to be 177. No new focal neuro deficits. his dizziness is postural becoming worse on standing up. MD elicited complaint: dizziness Onset (ago): minute(s) ( Started 30 minutes ago after a blood draw) Timing: sudden onset Severity: moderate Description: lightheadedness Context: change in body position History of similar symptoms: Yes Exacerbating factors: change in body position Relieving factors: remaining still Associated symptoms: weakness Stroke scale total: 1 (1b-1) Related Data Home Medications Medication Instructions Recorded Confirmed aripiprazole 10 mg tablet 15 mg PO HS 02/04/20 06/02/22 aspirin 81 mg tablet,delayed 81 mg PO DAILY 02/04/20 06/02/22 release (Erin Low Dose Aspirin) divalproex 125 mg capsule,delayed 250 mg PO BID 02/04/20 06/02/22 release sprinkle fenofibrate nanocrystallized 145 145 mg PO DAILY 02/04/20 06/02/22 mg tablet insulin lispro 100 unit/mL See Rx Instructions .Route .COMPLEX 02/04/20 06/02/22 subcutaneous pen (Humalog KwikPen (U-100) Insulin) ipratropium 0.5 mg-albuterol 3 mg 3 ml inhalation Q6H 02/04/20 06/02/22 (2.5 mg base)/3 mL nebulization soln loratadine 10 mg tablet 10 mg PO DAILY 02/04/20 06/02/22 metformin 500 mg tablet,extended 500 mg PO DAILY 02/04/20 06/02/22 release 24 hr pantoprazole 40 mg tablet,delayed 40 mg PO DAILY 02/04/20 06/02/22 release warfarin 2.5 mg tablet 2.5 mg PO HS 02/04/20 06/02/22 warfarin 5 mg tablet 5 mg PO HS 02/04/20 06/02/22 insulin syringe-needle U-100 1 mL 04/23/21 06/02/22 29 gauge x 1/2 (TRUEplus Insulin) isosorbide mononitrate 30 mg 30 mg PO DAILY 04/23/21 06/02/22 tablet,extended release 24 hr oxybutynin chloride 5 mg tablet 5 mg PO HS 04/23/21 06/02/22 donepezil 5 mg tablet (Aricept) 5 mg PO HS 12/03/21 06/02/22 Allergies Allergy/AdvReac Type Severity Reaction Status Date / Time pear Allergy Unknown Verified 01/30/22 09:51 strawberry Allergy Unknown Verified 01/30/22 09:51 NKDA AdvReac Unknown Uncoded 09/12/21 08:46 Review of Systems Review of Systems: All systems reviewed & are unremarkable except as noted in HPI and below Constitutional: Constitutional: Reports as per HPI and Reports no additional constitutional complaints Eyes: Eyes: Reports as per HPI and Reports no additional eye complaints ENT: Reports system reviewed and no additional complaints, except as documented and Reports as per HPI Cardiovascular: Cardiovascular: Reports as per HPI and Reports no additional cardiovascular complaints Respiratory: Respiratory: Reports as per HPI and Reports no additional respiratory complaints Gastrointestinal: Gastrointestinal: Reports as per HPI and Reports no additional gastrointestinal complaints Genitourinary: Genitourinary: Reports no additional male genitourinary complaints and Reports as per HPI Musculoskeletal: Musculoskeletal: Reports no additional musculoskeletal complaints and Reports as per HPI Integumentary/Breasts: Skin/Breast: Reports system reviewed and no additional complaints, except as docu and Reports as per HPI Neurologic: Reports system reviewed and no additional complaints, except as documented and Reports as per HPI Psychiatric: Psychiatric: Reports no additional psychiatric complaints, Reports as per HPI and Reports anxiety Endocrine: Endocrine: Reports no addition
[2022-06-02 08:19] LABS: Glucose Point of Care 177 mg/dl (65-105)
[2022-06-02 08:36] VITALS: PULSE 78
--- NOTE | 2022-06-02 08:36 | ECG_ITS ---
Measurements Intervals [place] Rate: 67 P: 55 OR: 133 QRS: 34 QRSD: 169 T: 138 QT: 466 QTc: 495 Interpretive Statements SINUS RHYTHM LEFT BUNDLE BRANCH BLOCK ABNORMAL ECG COMPARED TO ECG 12/03/2021 14:10:54 NO SIGNIFICANT CHANGES Electronically Signed On 06-02-2022 15:20:02 CDT by Luis Fernando Rodriguez M.D.
[2022-06-02 08:53] LABS: Add Urine Microscopic? NO; Appearance Urine Clear (Clear); Bilirubin Urine Negative (Negative); Blood Urine Negative (Negative); Color Urine Light Yellow (Yellow); Glucose Urine UA Negative (Negative); Ketones Urine Negative (Negative); Leukocyte Esterase Ur Negative (Negative); Nitrate Urine Negative (Negative); Protein Urine Negative (Negative); Specific Grav Ur <= 1.005 (1.010-1.020); Urobilinogen Urine 0.2 mg/dL (0.2-1.0)
--- NOTE | 2022-06-02 09:20 | PC.NURSE ---
pt provided meal as requested.
[2022-06-02 09:41] LABS: NT Pro B Type Natriuretic Pept 1185 pg/mL (0-125)
--- NOTE | 2022-06-02 09:55 | ED.GENADULT ---
HPI - General Adult General Chief complaint: Unspecified Stated complaint: FEELS FAINT Time Seen by Provider: 06/02/22 08:12 Source: patient Mode of arrival: ambulatory Related Data Home Medications Medication Instructions Recorded Confirmed aripiprazole 10 mg tablet 15 mg PO HS 02/04/20 06/02/22 aspirin 81 mg tablet,delayed 81 mg PO DAILY 02/04/20 06/02/22 release (Erin Low Dose Aspirin) divalproex 125 mg capsule,delayed 250 mg PO BID 02/04/20 06/02/22 release sprinkle fenofibrate nanocrystallized 145 145 mg PO DAILY 02/04/20 06/02/22 mg tablet insulin lispro 100 unit/mL See Rx Instructions .Route .COMPLEX 02/04/20 06/02/22 subcutaneous pen (Humalog KwikPen (U-100) Insulin) ipratropium 0.5 mg-albuterol 3 mg 3 ml inhalation Q6H 02/04/20 06/02/22 (2.5 mg base)/3 mL nebulization soln loratadine 10 mg tablet 10 mg PO DAILY 02/04/20 06/02/22 metformin 500 mg tablet,extended 500 mg PO DAILY 02/04/20 06/02/22 release 24 hr pantoprazole 40 mg tablet,delayed 40 mg PO DAILY 02/04/20 06/02/22 release warfarin 2.5 mg tablet 2.5 mg PO HS 02/04/20 06/02/22 warfarin 5 mg tablet 5 mg PO HS 02/04/20 06/02/22 insulin syringe-needle U-100 1 mL 04/23/21 06/02/22 29 gauge x 1/2 (TRUEplus Insulin) isosorbide mononitrate 30 mg 30 mg PO DAILY 04/23/21 06/02/22 tablet,extended release 24 hr oxybutynin chloride 5 mg tablet 5 mg PO HS 04/23/21 06/02/22 donepezil 5 mg tablet (Aricept) 5 mg PO HS 12/03/21 06/02/22 Allergies Allergy/AdvReac Type Severity Reaction Status Date / Time pear Allergy Unknown Verified 01/30/22 09:51 strawberry Allergy Unknown Verified 01/30/22 09:51 NKDA AdvReac Unknown Uncoded 09/12/21 08:46 [facility] Past Medical History Medical History Atrial fibrillation Postoperatively after CABG with bioprosthetic aortic valve replacement. Chronic anemia Chronic anticoagulation Coumadin. Chronic cystitis Coronary artery disease (~10/2011) Status post CABG. CVA (cerebral vascular accident) Chronic thalamic infarct Diabetes mellitus, with long-term current use of insulin Hemoglobin A1c was 7.2% in September 2020. Diastolic congestive heart failure, NYHA class 2 Echocardiogram August 2019: 1. Left ventricular systolic function is normal, estimated at 60-65%. 2. There is mildly increased left ventricular wall thickness. 3. Left ventricular septal wall motion is abnormal with septal motion related to bundle branch block. 4. The left ventricular diastolic function is grade II diastolic dysfunction. 5. Probable perimembranous VSD peak velocity 5.3 m/sec 110 mmHg gradient, however, not well visualized on this study. 6. The bioprosthetic aortic valve is not well visualized. 7. There is no bioprosthetic aortic valve stenosis. 8. There is trace regurgitation of the bioprosthetic aortic valve. 9. The mitral valve has thickened leaflets. 10. There is trace mitral valve regurgitation. 11. Focal, predominantly fixed and calcified echodensity above anterior mitral valve leaflet. 12. Unable to estimate PA systolic pressure due to poor spectral resolution of tricuspid regurgitant jet. 13. Mild mitral annular calcification. Glaucoma Hyperlipidemia Hypertension Mitral valve prolapse Obsessive compulsive disorder Schizophrenia Ventricular septal defect Managed conservatively. Surgical History Surgical History History of aortic valve replacement with bioprosthetic valve History of bilateral cataract extraction History of coronary artery bypass graft x 2 (10/2011) GONZALEZ to LAD, left radial graft to obtuse marginal. Hx of CABG 2 vessel CABG October 2011 with GONZALEZ to LAD and left radial artery graft to obtuse marginal branch Family History Family History Mother Diabetes mellitus Adopted (not a blood rel
[2022-06-02 09:56] VITALS: BP 149/59; PULSE 77; RESP 15; O2SAT 100
[2022-06-02 10:05] VITALS: BP 124/78; PULSE 74; RESP 20; TEMP 36.9; O2SAT 97
== END 2022-06-02 10:08 | disposition home or self-care (01) ==
PROVIDERS: Emergency Provider Internal Medicine Critical Care Medicine; PCP Family Medicine
DX: R42 Dizziness and giddiness (principal); D64.9 Anemia, unspecified; G25.9 Extrapyramidal and movement disorder, unspecified; E11.65 Type 2 diabetes mellitus with hyperglycemia; I50.30 Unspecified diastolic (congestive) heart failure; E78.5 Hyperlipidemia, unspecified; I10 Essential (primary) hypertension; Z87.891 Personal history of nicotine dependence
CPT/HCPCS: 36415; 70450; 80053; 80061; 81003; 82948; 83036; 83880; 84439; 84443; 84484; 85025; 85055; 85610; 93005; 99284

== ENCOUNTER 2022-06-09 08:52 | Outpatient (CLI) | payer MEDICARE, SELFPAY ==
[2022-06-09 09:03] LABS: Basophils Absolute Auto 0.04 K/mm3 (0.00-0.10); Basophils Percent Auto 0.5 % (0.0-1.0); Eosinophils Absolute Auto 0.34 K/mm3 (0.02-0.50); Eosinophils Percent Auto 4.1 % (1.0-6.0); Hematocrit 32.6 % (37.0-46.0); Hemoglobin 10.5 g/dL (12.4-15.3); Immature Granulocyte Absolute 0.02 K/mm3 (0.00-0.00); Immature Granulocyte Percent A 0.2 % (0.0-0.0); Lymphocytes Absolute Auto 2.75 K/mm3 (1.10-4.50); Lymphocytes Percent Auto 33.1 % (18.0-42.0); Mean Corpuscular HGB Conc 32.2 g/dL (32.0-36.0); Mean Corpuscular Hemoglobin 28.9 pg (27.0-31.0); Mean Corpuscular Volume 89.8 fL (78.0-102.0); Mean Platelet Volume 11.1 fl (8.7-11.0); Monocytes Absolute Auto 0.57 K/mm3 (0.10-0.90); Monocytes Percent Auto 6.9 % (2.0-11.0); Neutrophils Absolute Auto 4.6 K/mm3 (1.7-7.2); Neutrophils Percent Auto 55.2 % (50.0-70.0); Platelet Count Result 228 K/mm3 (150-420); Red Blood Count 3.63 M/mm3 (4.70-6.10); Red Cell Distribution Width 15.4 % (11.6-14.4); White Blood Count 8.3 K/mm3 (4.8-10.8)
== END 2022-06-09 08:53 | disposition home or self-care (01) ==
LOC: CHSLAB 08:54
PROVIDERS: PCP Family Medicine; Visit Provider Internal Medicine Critical Care Medicine
DX: D69.6 Thrombocytopenia, unspecified (principal)
CPT/HCPCS: 36415; 85025

== ENCOUNTER 2022-06-18 00:22 | Emergency (ER) | payer MEDICARE, MEDICAID, SELFPAY ==
--- NOTE | ~2022-06-18 | XR_ITS ---
EXAMINATION: XR chest 1V portable DATE: 06/18/2022 01:00 INDICATION: Tremors. TECHNIQUE: A single frontal view of the chest was obtained. COMPARISON: Chest single view 12/03/2021, CT abdomen and pelvis 12/03/2021 FINDINGS: There is a small left pleural effusion. There are airspace opacities in the mid and lower l ele zones. No pneumothorax. Cardiomegaly is noted. There are changes of aortic valve replacement and likely coronary artery bypass grafting. All of the median sternotomy wires are broken. IMPRESSION: 1. Stable airspace opacities in the mid and lower lung zones, likely atelectasis and chronic lung dis ease. Pneumonia cannot be excluded. 2. Stable small left pleural effusion. 3. Cardiomegaly. Reviewed, dictated and finalized at location A. IMPRESSION: 1. Stable airspace opacities in the mid and lower lung zones, likely atelectasi s and chronic lung disease. Pneumonia cannot be excluded. 2. Stable small left pleural effusion. 3. Cardiomegaly.
[2022-06-18 00:27] VITALS: BP 127/56; PULSE 60; RESP 18; TEMP 36.6; O2SAT 100
[2022-06-18 00:33] VITALS: RESP 18
--- NOTE | 2022-06-18 00:33 | ED.GENADULT ---
HPI - General Adult General Chief complaint: Unspecified Stated complaint: Shacky Time Seen by Provider: 06/18/22 00:25 Source: patient Mode of arrival: ambulatory History of Present Illness HPI narrative: 76-year-old male with a history of dementia, schizophrenia, OCD, chronic anemia, diabetes mellitus, dyslipidemia, coronary artery disease status post CABG, AVR, AFib on Coumadin, diastolic CHF, VSD, CVA with a thalamic infarct presents to the ER with -- feeling shaky on the inside. He has had a blood sugar of 156 Denied any chest pain or shortness of breath. No nausea/ vomiting /abdominal pain or diarrhea. No focal weakness patient was seen on 06/02/2022 for similar complaints. Onset (ago): hour(s) ( Started 1 hour ago) Relieving factors: none Exacerbating factors: none Associated symptoms: denies other symptoms Treatments prior to arrival: none Related Data Home Medications Medication Instructions Recorded Confirmed aripiprazole 10 mg tablet 15 mg PO HS 02/04/20 06/02/22 aspirin 81 mg tablet,delayed 81 mg PO DAILY 02/04/20 06/02/22 release (Erin Low Dose Aspirin) divalproex 125 mg capsule,delayed 250 mg PO BID 02/04/20 06/02/22 release sprinkle fenofibrate nanocrystallized 145 145 mg PO DAILY 02/04/20 06/02/22 mg tablet insulin lispro 100 unit/mL See Rx Instructions .Route .COMPLEX 02/04/20 06/02/22 subcutaneous pen (Humalog KwikPen (U-100) Insulin) ipratropium 0.5 mg-albuterol 3 mg 3 ml inhalation Q6H 02/04/20 06/02/22 (2.5 mg base)/3 mL nebulization soln loratadine 10 mg tablet 10 mg PO DAILY 02/04/20 06/02/22 metformin 500 mg tablet,extended 500 mg PO DAILY 02/04/20 06/02/22 release 24 hr pantoprazole 40 mg tablet,delayed 40 mg PO DAILY 02/04/20 06/02/22 release warfarin 2.5 mg tablet 2.5 mg PO HS 02/04/20 06/02/22 warfarin 5 mg tablet 5 mg PO HS 02/04/20 06/02/22 insulin syringe-needle U-100 1 mL 04/23/21 06/02/22 29 gauge x 1/2 (TRUEplus Insulin) isosorbide mononitrate 30 mg 30 mg PO DAILY 04/23/21 06/02/22 tablet,extended release 24 hr oxybutynin chloride 5 mg tablet 5 mg PO HS 04/23/21 06/02/22 donepezil 5 mg tablet (Aricept) 5 mg PO HS 12/03/21 06/02/22 Allergies Allergy/AdvReac Type Severity Reaction Status Date / Time pear Allergy Unknown Verified 01/30/22 09:51 strawberry Allergy Unknown Verified 01/30/22 09:51 NKDA AdvReac Unknown Uncoded 09/12/21 08:46 Review of Systems Review of Systems: All systems reviewed & are unremarkable except as noted in HPI and below Constitutional: Constitutional: Reports as per HPI and Reports no additional constitutional complaints Eyes: Eyes: Reports as per HPI and Reports no additional eye complaints ENT: Reports system reviewed and no additional complaints, except as documented and Reports as per HPI Cardiovascular: Cardiovascular: Reports as per HPI and Reports no additional cardiovascular complaints Respiratory: Respiratory: Reports as per HPI and Reports no additional respiratory complaints Gastrointestinal: Gastrointestinal: Reports as per HPI and Reports no additional gastrointestinal complaints Genitourinary: Genitourinary: Reports no additional male genitourinary complaints and Reports as per HPI Musculoskeletal: Musculoskeletal: Reports no additional musculoskeletal complaints and Reports as per HPI Integumentary/Breasts: Skin/Breast: Reports system reviewed and no additional complaints, except as docu and Reports as per HPI Neurologic: Reports system reviewed and no additional complaints, except as documented and Reports as per HPI Psychiatric: Psychiatric: Reports no additional psychiatric complaints and Reports as per HPI Endocrine: Endocrine: Reports no additional endocrine complaints and Reports as per HPI Hematologic/Lymphatic: Hematologic/Lymphatic: Reports no additional hematologic/lymphatic complaints and Reports as per HPI Allergic/Immunologic: Allergic/Immunologic: Reports no additional allergic/imm
--- NOTE | 2022-06-18 00:41 | ECG_ITS ---
Measurements Intervals [place] Rate: 53 P: 63 MD: 197 QRS: -26 QRSD: 171 T: 117 QT: 484 QTc: 458 Interpretive Statements SINUS BRADYCARDIA LEFT BUNDLE BRANCH BLOCK [120+ ms QRS DURATION, 80+ ms Q/S IN V1/V2, 85+ ms R IN I/aVL/V5/V6] COMPARED TO ECG 06/02/2022 08:36:48 SINUS BRADYCARDIA NOW PRESENT Electronically Signed On 06-18-2022 13:45:07 CDT by Bianka Stone M.D.
[2022-06-18 01:09] LABS: Basophils Absolute Auto 0.02 K/mm3 (0.00-0.10); Basophils Percent Auto 0.3 % (0.0-1.0); Eosinophils Percent Auto 4.8 % (1.0-6.0); Hematocrit 28.5 % (37.0-46.0); Hemoglobin 9.2 g/dL (12.4-15.3); Immature Granulocyte Absolute 0.02 K/mm3 (0.00-0.00); Immature Granulocyte Percent A 0.3 % (0.0-0.0); Lymphocytes Absolute Auto 2.56 K/mm3 (1.10-4.50); Mean Corpuscular HGB Conc 32.3 g/dL (32.0-36.0); Mean Corpuscular Hemoglobin 28.9 pg (27.0-31.0); Mean Corpuscular Volume 89.6 fL (78.0-102.0); Mean Platelet Volume 10.3 fl (8.7-11.0); Monocytes Absolute Auto 0.46 K/mm3 (0.10-0.90); Monocytes Percent Auto 7.4 % (2.0-11.0); Neutrophils Absolute Auto 2.9 K/mm3 (1.7-7.2); Neutrophils Percent Auto 46.2 % (50.0-70.0); Platelet Count Result 199 K/mm3 (150-420); Red Blood Count 3.18 M/mm3 (4.70-6.10); Red Cell Distribution Width 15.8 % (11.6-14.4); White Blood Count 6.2 K/mm3 (4.8-10.8)
[2022-06-18 01:19] LABS: Add Urine Microscopic? YES; Appearance Urine Clear (Clear); Bilirubin Urine Negative (Negative); Blood Urine Negative (Negative); Color Urine Light Yellow (Yellow); Glucose Urine UA Trace (Negative); Ketones Urine Negative (Negative); Leukocyte Esterase Ur Negative (Negative); Nitrate Urine Negative (Negative); Protein Urine Negative (Negative); Specific Grav Ur 1.015 (1.010-1.020); pH Urine 6.5 (5.0-8.0)
[2022-06-18 01:24] LABS: INR 2.8; Prothrombin Time 28.5 Seconds (9.50-12.10)
[2022-06-18 01:24] LABS: RBC Urine 0-2 /hpf (0-2); Squamous Epithelial Cell Urine None seen /hpf (Few); WBC Urine 0-3 /hpf (0-3)
[2022-06-18 01:25] LABS: Bacteria Urine None seen /hpf
[2022-06-18 01:33] LABS: Lactic Acid Reflex 0.6 mmol/L (0.4-2.0)
[2022-06-18 01:34] LABS: Alanine Aminotransferase 11 U/L (16-63); Alkaline Phosphatase 53 U/L (46-116); Anion Gap 5 mmol/L (8-16); Aspartate Amino Transferase 15 U/L (15-37); Bilirubin,Total 0.3 mg/dL (0.00-1.00); Blood Urea Nitrogen 37 mg/dL (7-18); Calcium 8.8 mg/dL (8.5-10.1); Carbon Dioxide 28 mmol/L (21-32); Chloride 105 mmol/L (98-108); Estimated Glomerular Filt Rate > 60; Glucose 146 mg/dL (70-99); NT Pro B Type Natriuretic Pept 1196 pg/mL (0-125); Osmolality Calculated 297 mOsm/kg (285-295); Potassium 4.3 mmol/L (3.5-5.1); Sodium 138 mmol/L (136-145); Total Protein 6.4 g/dL (6.4-8.2); Troponin I 23.2 ng/L (0.00-60.4)
[2022-06-18 01:37] VITALS: BP 137/57; PULSE 59; O2SAT 95
[2022-06-18 02:02] VITALS: BP 140/63; PULSE 60; RESP 18; O2SAT 99
[2022-06-18 02:23] VITALS: BP 143/61; PULSE 60; O2SAT 95
[2022-06-21 13:41] LABS: Glucose Point of Care 156 mg/dl (65-105)
== END 2022-06-18 02:31 | disposition home or self-care (01) ==
PROVIDERS: Emergency Provider Internal Medicine Critical Care Medicine; PCP Family Medicine
DX: F41.9 Anxiety disorder, unspecified (principal); I50.9 Heart failure, unspecified; I48.91 Unspecified atrial fibrillation; Z79.899 Other long term (current) drug therapy; I25.10 Atherosclerotic heart disease of native coronary artery without angina pectoris; E11.9 Type 2 diabetes mellitus without complications; Z79.4 Long term (current) use of insulin; E78.5 Hyperlipidemia, unspecified; I10 Essential (primary) hypertension; Z87.891 Personal history of nicotine dependence
CPT/HCPCS: 36415; 71045; 80053; 81001; 82948; 83605; 83880; 84484; 85025; 85610; 93005; 99284

== ENCOUNTER 2022-08-31 07:22 | Emergency (ER) | payer MEDICARE, MEDICAID, SELFPAY ==
[2022-08-31] VITALS (7 sets, daily range): BP systolic 156–186; BP diastolic 61–76; PULSE 67–73; RESP 18–20; TEMP 36.2–36.7; O2SAT 99–100
--- NOTE | 2022-08-31 07:25 | ED.GENADULT ---
HPI - General Adult General Chief complaint: Altered Mental Status Stated complaint: AMBULANCE Time Seen by Provider: 08/31/22 07:25 Source: patient and RN notes reviewed Mode of arrival: EMS Limitations: no limitations History of Present Illness HPI narrative: Patient had a blood sugar this morning of 31. He was given some orange juice and peanut butter jelly sandwich and then EMS got a blood sugar of 56. He is awake and alert feeling much better. He is on insulin and when he forgets to eat then his blood sugars go low. MD complaint: Low Blood sugar Onset (ago): minute(s) (30) Related Data Home Medications Medication Instructions Recorded Confirmed aripiprazole 10 mg tablet 15 mg PO HS 02/04/20 06/02/22 aspirin 81 mg tablet,delayed 81 mg PO DAILY 02/04/20 06/02/22 release (Erin Low Dose Aspirin) divalproex 125 mg capsule,delayed 250 mg PO BID 02/04/20 06/02/22 release sprinkle fenofibrate nanocrystallized 145 145 mg PO DAILY 02/04/20 06/02/22 mg tablet insulin lispro 100 unit/mL See Rx Instructions .Route .COMPLEX 02/04/20 06/02/22 subcutaneous pen (Humalog KwikPen (U-100) Insulin) ipratropium 0.5 mg-albuterol 3 mg 3 ml inhalation Q6H 02/04/20 06/02/22 (2.5 mg base)/3 mL nebulization soln loratadine 10 mg tablet 10 mg PO DAILY 02/04/20 06/02/22 metformin 500 mg tablet,extended 500 mg PO DAILY 02/04/20 06/02/22 release 24 hr pantoprazole 40 mg tablet,delayed 40 mg PO DAILY 02/04/20 06/02/22 release warfarin 2.5 mg tablet 2.5 mg PO HS 02/04/20 06/02/22 warfarin 5 mg tablet 5 mg PO HS 02/04/20 06/02/22 insulin syringe-needle U-100 1 mL 04/23/21 06/02/22 29 gauge x 1/2 (TRUEplus Insulin) isosorbide mononitrate 30 mg 30 mg PO DAILY 04/23/21 06/02/22 tablet,extended release 24 hr oxybutynin chloride 5 mg tablet 5 mg PO HS 04/23/21 06/02/22 donepezil 5 mg tablet (Aricept) 5 mg PO HS 12/03/21 06/02/22 Allergies Allergy/AdvReac Type Severity Reaction Status Date / Time pear Allergy Unknown Verified 08/31/22 09:36 strawberry Allergy Unknown Verified 08/31/22 09:36 NKDA AdvReac Unknown Uncoded 08/31/22 09:36 Review of Systems Review of Systems: All systems reviewed & are unremarkable except as noted in HPI and below PMFSH Past Medical History Medical History Atrial fibrillation Postoperatively after CABG with bioprosthetic aortic valve replacement. Chronic anemia Chronic anticoagulation Coumadin. Chronic cystitis Coronary artery disease (~10/2011) Status post CABG. CVA (cerebral vascular accident) Chronic thalamic infarct Diabetes mellitus, with long-term current use of insulin Hemoglobin A1c was 7.2% in September 2020. Diastolic congestive heart failure, NYHA class 2 Echocardiogram August 2019: 1. Left ventricular systolic function is normal, estimated at 60-65%. 2. There is mildly increased left ventricular wall thickness. 3. Left ventricular septal wall motion is abnormal with septal motion related to bundle branch block. 4. The left ventricular diastolic function is grade II diastolic dysfunction. 5. Probable perimembranous VSD peak velocity 5.3 m/sec 110 mmHg gradient, however, not well visualized on this study. 6. The bioprosthetic aortic valve is not well visualized. 7. There is no bioprosthetic aortic valve stenosis. 8. There is trace regurgitation of the bioprosthetic aortic valve. 9. The mitral valve has thickened leaflets. 10. There is trace mitral valve regurgitation. 11. Focal, predominantly fixed and calcified echodensity above anterior mitral valve leaflet. 12. Unable to estimate PA systolic pressure due to poor spectral resolution of tricuspid regurgitant jet. 13. Mild mitral annular calcification. Glaucoma Hyperlipidemia Hypertension Mitral valve prolapse Obsessive compulsive disorder Schizophrenia Ventricular septal defect Managed conservatively. Surgical History Surgical Histo
--- NOTE | 2022-08-31 07:58 | PC.NURSE ---
Breakfast arrived at 0755 and this RN student along with ALAN Everett set up meal in front of patient and opened all packages to enable ease of eating.
[2022-08-31 08:34] LABS: Glucose Point of Care 166 mg/dl (65-105)
--- NOTE | 2022-08-31 08:40 | PC.NURSE ---
This RN student rechecked patient blood glucose at 0830, blood glucose is now 166 after eating breakfast. MD notified of rise in blood glucose.
--- NOTE | 2022-08-31 09:31 | PC.NURSE ---
nurse gave the document coordinator arden discharge instructions discharge instructions pt and arden verbally understood
--- NOTE | 2022-08-31 09:32 | PC.NURSE ---
On 08/31/22, the student, [jamia montanez ], provided care and completed [facility] documentation on this patient. I have reviewed the student's documentation and agree with the findings.
== END 2022-08-31 09:39 | disposition home or self-care (01) ==
PROVIDERS: Emergency Provider Emergency Medicine
DX: E11.649 Type 2 diabetes mellitus with hypoglycemia without coma (principal); Z79.4 Long term (current) use of insulin; E78.5 Hyperlipidemia, unspecified; I10 Essential (primary) hypertension; I48.91 Unspecified atrial fibrillation; Z87.891 Personal history of nicotine dependence
CPT/HCPCS: 82948; 99283

== ENCOUNTER 2022-09-08 08:44 | Outpatient (RCR) | payer MEDICARE, SELFPAY ==
[2022-06-30 09:28] LABS: INR 2.8; Prothrombin Time 28.2 Seconds (9.50-12.10)
[2022-07-29 09:23] LABS: INR 3.9; Prothrombin Time 38.2 Seconds (9.50-12.10)
[2022-08-12 09:12] LABS: INR 2.9; Prothrombin Time 29.1 Seconds (9.50-12.10)
[2022-09-08 09:08] LABS: INR 2.5; Prothrombin Time 25.5 Seconds (9.50-12.10)
== END 2022-09-28 23:59 | disposition home or self-care (01) ==
LOC: CHSLAB 08:44
PROVIDERS: PCP Internal Medicine Cardiovascular Disease; Visit Provider Internal Medicine Cardiovascular Disease
DX: Z79.01 Long term (current) use of anticoagulants (principal); Z95.3 Presence of xenogenic heart valve
CPT/HCPCS: 36415; 85610

== ENCOUNTER 2022-09-30 08:38 | Emergency (ER) | payer MEDICARE, MEDICAID, SELFPAY ==
[2022-09-30] VITALS (20 sets, daily range): BP systolic 90–165; BP diastolic 51–80; PULSE 71–88; RESP 13–28; TEMP 36.1–36.6; O2SAT 98–100
--- NOTE | ~2022-09-30 | CT_ITS ---
EXAMINATION: CT diagnostic chest wo con DATE: 09/30/2022 11:00 INDICATION: Chest pain, shortness of breath TECHNIQUE: Computed tomography (CT) of the chest was performed without intravenous contrast. Automate d exposure control and iterative reconstruction technique were employed. Exam dose: 132.76 mGy-cm to francia exam DLP. COMPARISON: 09/30/2022, 06/18/2022 portable AP chest examinations FINDINGS: Status post sternotomy and aortic valve replacement. There is thoracic aortic calcification but no thoracic aortic aneurysm. Cardiomegaly. No pericardial effusion. Normal size and homogeneous attenuation of the thyroid gland. There are shotty nonenlarged mediastina l lymph nodes. Mild loculated posterior and posterolateral wall left lower thoracic pleural fluid. No right pleural effusion. There are chronic discoid opacities in the left lower lobe likely due to discoid scarring and/or atel ectasis. There are focal areas of peripheral septal soft tissue thickening and/or mild infiltrate or atelectas is in the right upper and middle lobes. There is more prominent dependent right lower lobe infiltrate , atelectasis and/or fibrotic changes with bronchiectasis and/or honeycombing.. There is prominent distention of the stomach with food stuff, and prominent distention of the thoraci c esophagus with a small air-fluid level in the superior mediastinum. Prominent gaseous esophageal re flux is suggested. No suspicious osteolytic or osteoblastic lesions are noted. IMPRESSION: Mild loculated posterior left lower thoracic pleural fluid collection Chronic discoid atelectasis or more likely scarring in the left lower lung Scattered peripheral areas of septal soft tissue thickening, atelectasis or fibrotic change of the ri ght upper middle lobe Prominent dependent right lower lobe infiltrate, atelectasis with bronchiectasis and/or honeycombing Distention of the stomach with reflux into the distended esophagus Cardiomegaly, status post aortic valve repair Reviewed, dictated and finalized at Location [facility]. Reviewed, dictated and finalized at location B. CLE DELIVERY WORKER IMPRESSION: Mild loculated posterior left lower thoracic pleural fluid collect ion Chronic discoid atelectasis or more likely scarring in the left lower lung Scattered peripheral areas of septal soft tissue thickening, atelectasis or fib rotic change of the right upper middle lobe Prominent dependent right lower lobe infiltrate, atelectasis with bronchiectasi s and/or honeycombing Distention of the stomach with reflux into the distended esophagus Cardiomegaly, status post aortic valve repair
--- NOTE | ~2022-09-30 | XR_ITS ---
XR chest 1V portable DATE: 09/30/2022 09:04 INDICATION: Chest pain TECHNIQUE: Portable upright AP chest on 09/30/2022 at 0911 hours COMPARISON: 06/18/2022 portable AP chest at 0105 hours FINDINGS: Status post sternotomy and cardiac valve replacement. There is pulmonary vascular redistribution which suggests pulmonary venous hypertension. There is inf iltrate and discoid atelectasis in the mid and to a greater extent lower lung zones, left greater gabe n right. Mild left pleural effusion. Heart size appears within normal range. There is aortic arch calcification and aortic unfolding. Diffuse osteopenia. IMPRESSION: Persistent mid and lower lung zone infiltrate and/or atelectasis, mild left pleural effus ion, relatively stable since 06/18/2022 Pulmonary venous hypertension is suggested Reviewed, dictated and finalized at location B. NCIAL SERVICE PROFESSIONAL IMPRESSION: Persistent mid and lower lung zone infiltrate and/or atelectasis, m ild left pleural effusion, relatively stable since 06/18/2022 Pulmonary venous hypertension is suggested
--- NOTE | 2022-09-30 08:54 | ECG_ITS ---
Measurements Intervals [place] Rate: 75 P: 85 MT: 207 QRS: 99 QRSD: 169 T: 49 QT: 465 QTc: 521 Interpretive Statements SINUS RHYTHM BORDERLINE RIGHT AXIS DEVIATION [QRS AXIS > 90] LEFT BUNDLE-BRANCH BLOCK ABNORMAL ECG Electronically Signed On 09-30-2022 15:09:22 [employer]INNER HELPER by Raghav Rose M.D.
[2022-09-30] MEDS: SODIUM CHLORIDE 0.9% IV 500 ML 999 ML IV CONT (09:09)
[2022-09-30 09:22] LABS: Basophils Absolute Auto 0.03 K/mm3 (0.00-0.10); Basophils Percent Auto 0.5 % (0.0-1.0); Eosinophils Percent Auto 1.7 % (1.0-6.0); Hematocrit 29.8 % (37.0-46.0); Hemoglobin 9.5 g/dL (12.4-15.3); Immature Granulocyte Absolute 0.02 K/mm3 (0.00-0.00); Immature Granulocyte Percent A 0.3 % (0.0-0.0); Lymphocytes Absolute Auto 1.77 K/mm3 (1.10-4.50); Lymphocytes Percent Auto 29.9 % (18.0-42.0); Mean Corpuscular HGB Conc 31.9 g/dL (32.0-36.0); Mean Corpuscular Hemoglobin 28.4 pg (27.0-31.0); Mean Platelet Volume 10.4 fl (8.7-11.0); Monocytes Absolute Auto 0.44 K/mm3 (0.10-0.90); Monocytes Percent Auto 7.4 % (2.0-11.0); Neutrophils Absolute Auto 3.6 K/mm3 (1.7-7.2); Neutrophils Percent Auto 60.2 % (50.0-70.0); Platelet Count Result 192 K/mm3 (150-420); Red Blood Count 3.35 M/mm3 (4.70-6.10); Red Cell Distribution Width 16.8 % (11.6-14.4); White Blood Count 5.9 K/mm3 (4.8-10.8)
--- NOTE | 2022-09-30 09:41 | PC.NURSE ---
PT ASSISTED WITH URINAL, UNDERWARE WERE NOTED TO BE INSIDE OUT, WET, AND FULL OF STOOL. KIRIT CARE PROVIDED, URINAL UTILIZED, DRY DEPEND IN PLACE. PT IS REQUESTING BREAKFAST. BREAKFAST TRAY ORDERED PER ERP.
--- NOTE | 2022-09-30 09:44 | PC.NURSE ---
PT HAS PURPLE BRUISING TO BILAT KNEES AND RT ARMENDARIZ. PT REPORTS HE FELL 1 MONTH RIVETER HAND. HEALING ABRASIONS ALSO NOTED TO BILAT KNEES.
[2022-09-30 09:48] LABS: Alanine Aminotransferase 10 U/L (16-63); Albumin Level 3.3 g/dL (3.4-5.0); Alkaline Phosphatase 55 U/L (46-116); Anion Gap 9 mmol/L (8-16); Aspartate Amino Transferase 17 U/L (15-37); Bilirubin,Total 0.5 mg/dL (0.00-1.00); Blood Urea Nitrogen 36 mg/dL (7-18); Calcium 8.5 mg/dL (8.5-10.1); Carbon Dioxide 27 mmol/L (21-32); Chloride 105 mmol/L (98-108); Estimated CRCL calculation 43 ml/min; Estimated Glomerular Filt Rate 57; Glucose 211 mg/dL (70-99); Osmolality Calculated 306 mOsm/kg (285-295); Sodium 141 mmol/L (136-145); Thyroid Stimulating Hormone 3.78 uIU/mL (0.36-3.74); Total Protein 6.8 g/dL (6.4-8.2); Troponin I 20.9 ng/L (0.00-60.4)
--- NOTE | 2022-09-30 10:12 | PC.NURSE ---
BREAKFAST TRAY PROVIDED
[2022-09-30 10:29] LABS: Appearance Urine Clear (Clear); Bilirubin Urine Negative (Negative); Blood Urine Negative (Negative); Glucose Urine UA Trace (Negative); Ketones Urine Negative (Negative); Leukocyte Esterase Ur Trace (Negative); Nitrate Urine Negative (Negative); Protein Urine Negative (Negative); pH Urine 6.5 (5.0-8.0)
[2022-09-30 10:37] LABS: Add Urine Microscopic? YES; Bacteria Urine None seen /hpf; Color Urine Light Yellow (Yellow); RBC Urine None seen /hpf (0-2); WBC Urine None seen /hpf (0-3)
--- NOTE | 2022-09-30 11:20 | PC.NURSE ---
PT HAS RETURNED FROM CT, NAD NOTED. PT HAS BEEN PROVIDED MULTIPLE MILKS, ASSISTED MULTIPLE TIMES WITH URINAL AND VARIOUS REQUESTS. BROTHER SALLY, HAS CALLED TO CHECK STATUS. PT IS AWAITING CT RESULTS AT THIS TIME. CATALINA NOTED. WILL CONTINUE TO MONITOR.
--- NOTE | 2022-09-30 12:41 | ED.GENADULT ---
HPI - General Adult General Chief complaint: Unspecified Stated complaint: AMBULANCE Time Seen by Provider: 09/30/22 08:42 Source: patient, EMS and RN notes reviewed Mode of arrival: EMS Limitations: no limitations History of Present Illness MD complaint: sob Onset (ago): day(s) (2) Location: chest Radiation: non-radiation Severity: mild Severity scale (1-10): 3 Pain Consistency: other (pain-free) Relieving factors: none Exacerbating factors: none Associated symptoms: cough and shortness of breath Related Data Home Medications Medication Instructions Recorded Confirmed aripiprazole 10 mg tablet 15 mg PO HS 02/04/20 09/30/22 aspirin 81 mg tablet,delayed 81 mg PO DAILY 02/04/20 09/30/22 release (Erin Low Dose Aspirin) divalproex 125 mg capsule,delayed 250 mg PO BID 02/04/20 09/30/22 release sprinkle fenofibrate nanocrystallized 145 145 mg PO DAILY 02/04/20 09/30/22 mg tablet insulin lispro 100 unit/mL See Rx Instructions .Route .COMPLEX 02/04/20 09/30/22 subcutaneous pen (Humalog KwikPen (U-100) Insulin) ipratropium 0.5 mg-albuterol 3 mg 3 ml inhalation Q6H 02/04/20 09/30/22 (2.5 mg base)/3 mL nebulization soln loratadine 10 mg tablet 10 mg PO DAILY 02/04/20 09/30/22 metformin 500 mg tablet,extended 500 mg PO DAILY 02/04/20 09/30/22 release 24 hr pantoprazole 40 mg tablet,delayed 40 mg PO DAILY 02/04/20 09/30/22 release warfarin 5 mg tablet 5 mg PO HS 02/04/20 09/30/22 insulin syringe-needle U-100 1 mL 04/23/21 09/30/22 29 gauge x 1/2 (TRUEplus Insulin) isosorbide mononitrate 30 mg 30 mg PO DAILY 04/23/21 09/30/22 tablet,extended release 24 hr oxybutynin chloride 5 mg tablet 5 mg PO HS 04/23/21 09/30/22 donepezil 5 mg tablet (Aricept) 5 mg PO HS 12/03/21 09/30/22 insulin glargine 100 unit/mL 25 unit subcut HS 09/30/22 09/30/22 subcutaneous solution (Lantus U-100 Insulin) Allergies Allergy/AdvReac Type Severity Reaction Status Date / Time pear Allergy Unknown Verified 09/30/22 08:53 strawberry Allergy Unknown Verified 09/30/22 08:53 NKDA AdvReac Unknown Uncoded 08/31/22 09:36 Review of Systems Review of Systems: All systems reviewed & are unremarkable except as noted in HPI and below Constitutional: Constitutional: Reports no additional constitutional complaints Eyes: Eyes: Reports no additional eye complaints ENT: Reports system reviewed and no additional complaints, except as documented Cardiovascular: Cardiovascular: Reports no additional cardiovascular complaints Respiratory: Respiratory: Reports no additional respiratory complaints Gastrointestinal: Gastrointestinal: Reports no additional gastrointestinal complaints Musculoskeletal: Musculoskeletal: Reports no additional musculoskeletal complaints Integumentary/Breasts: Skin/Breast: Reports system reviewed and no additional complaints, except as docu Neurologic: Reports system reviewed and no additional complaints, except as documented Psychiatric: Psychiatric: Reports no additional psychiatric complaints Endocrine: Endocrine: Reports no additional endocrine complaints Hematologic/Lymphatic: Hematologic/Lymphatic: Reports no additional hematologic/lymphatic complaints Allergic/Immunologic: Allergic/Immunologic: Reports no additional allergic/immunologic complaints [facility] Past Medical History Medical History Atrial fibrillation Postoperatively after CABG with bioprosthetic aortic valve replacement. Chronic anemia Chronic anticoagulation Coumadin. Chronic cystitis Coronary artery disease (~10/2011) Status post CABG. CVA (cerebral vascular accident) Chronic thalamic infarct Diabetes mellitus, with long-term current use of insulin Hemoglobin A1c was 7.2% in September 2020. Diastolic congestive heart failure, NYHA class 2 Echocardiogram August 2019: 1. Left ventricular systolic function is normal, estimated at 60-65%. 2. There is mildly in
--- NOTE | 2022-09-30 12:49 | PC.NURSE ---
PT HAS BEEN AMBULATED, NO DROP IN BP. PT TOLERATED WELL, ERP IS AWARE. LUNCH TRAY ORDERED AT THIS TIME. PT IS AWAITING ERP DECISION. NAD NOTED. PT IS WATCHING TV WITHOUT DISTRESS. WILL CONTINUE TO MONITOR.
[2022-09-30 13:01] LABS: Glucose Point of Care 217 mg/dl (65-105)
--- NOTE | 2022-09-30 13:01 | PC.NURSE ---
PT TO BE DC BACK TO [facility], THEY HAVE BEEN NOTIFIED AND EN ROUTE TO TRANSPORT PT BACK. PT IS CURRENTLY EATING A LUNCH TRAY. NAD NOTED. PT WAS SLEEPING UPON RECEIVING THE TRAY.
--- NOTE | 2022-09-30 13:22 | PC.NURSE ---
arden gambino here to oyster picker pt. assisted to personal vehicle per wheelchair with fernie quarles. pt alert and oriented. no needs or concerns at time of discharge.
== END 2022-09-30 13:23 | disposition home or self-care (01) ==
PROVIDERS: Emergency Provider Emergency Medicine; PCP Family Medicine
DX: J47.9 Bronchiectasis, uncomplicated (principal); E03.9 Hypothyroidism, unspecified; I48.91 Unspecified atrial fibrillation; E78.5 Hyperlipidemia, unspecified; I10 Essential (primary) hypertension; Z87.891 Personal history of nicotine dependence
CPT/HCPCS: 36415; 71045; 71250; 80053; 81001; 82948; 83605; 84443; 84484; 85025; 93005; 96360; 99284; J7040

== ENCOUNTER 2022-10-07 08:51 | Outpatient (CLI) | payer MEDICARE, SELFPAY ==
[2022-10-07 09:32] LABS: INR 4.4; Prothrombin Time 42.7 Seconds (9.50-12.10)
== END 2022-10-07 08:52 | disposition home or self-care (01) ==
LOC: CHSLAB 08:54
PROVIDERS: PCP Family Medicine; Visit Provider Internal Medicine Cardiovascular Disease
DX: Z79.01 Long term (current) use of anticoagulants (principal)
CPT/HCPCS: 36415; 85610

== ENCOUNTER 2022-11-07 08:54 | Outpatient (RCR) | payer MEDICARE, SELFPAY ==
[2022-10-14 09:42] LABS: INR 2.3; Prothrombin Time 23.5 Seconds (9.50-12.10)
[2022-10-28 07:53] LABS: Prothrombin Time 39.6 Seconds (9.50-12.10)
[2022-11-07 09:18] LABS: INR 2.3; Prothrombin Time 23.1 Seconds (9.50-12.10)
== END 2023-01-12 23:59 | disposition home or self-care (01) ==
LOC: CHSLAB 08:54
PROVIDERS: PCP Family Medicine; Visit Provider Internal Medicine Cardiovascular Disease
DX: Z51.81 Encounter for therapeutic drug level monitoring (principal); Z95.3 Presence of xenogenic heart valve; Z79.01 Long term (current) use of anticoagulants
CPT/HCPCS: 36415; 85610

== ENCOUNTER 2022-11-26 08:32 | Observation (INO) | payer MEDICARE, MEDICAID, SELFPAY ==
[2022-11-26] VITALS (19 sets, daily range): BP systolic 72–161; BP diastolic 39–62; PULSE 35–70; RESP 12–20; TEMP 35.5–36.9; O2SAT 95–100; BMI 23.2
--- NOTE | ~2022-11-26 | CT_ITS ---
EXAMINATION: CT brain wo con DATE: 11/26/2022 09:07 INDICATION: Confusion. Dizziness and weakness. TECHNIQUE: Computed tomography (CT) of the head was performed without intravenous contrast. The dose- length product was 605.33 mGy-cm. Automated exposure control and iterative reconstruction technique w ere employed. COMPARISON: CT dated 06/02/2022 FINDINGS: There is a chronic right lacunar infarction. Generalized atrophy. There are scattered mild periventricular and subcortical white matter changes, most likely related to small vessel ischemic di sease (microangiopathy). No acute intracranial hemorrhage, infarction, mass or mass effect. No ventri culomegaly or midline shift. Paranasal sinuses and mastoids are pneumatized. No depressed skull fract ures. IMPRESSION: 1. No acute intracranial abnormality. 2: Chronic age-related findings. 3: Chronic right lacunar infarction. Reviewed, dictated and finalized at location A. ER OUT
--- NOTE | ~2022-11-26 | CT_ITS ---
EXAMINATION: CT abdomen pelvis wo con DATE: 11/27/2022 12:00 INDICATION: Abdomen pain. Nausea and vomiting. TECHNIQUE: Computed tomography (CT) of the abdomen and pelvis was performed without intravenous contr ast. The dose-length product was 482.49 mGy-cm. Automated exposure control and iterative reconstructi on technique were employed. COMPARISON: CT dated 12/03/2021. FINDINGS: There are patchy infiltrates of the lower lungs with areas of groundglass consolidation and interlobular septal thickening. Small left pleural effusion. Cardiomegaly. Small hiatal hernia. Mode rate gastric distention. The liver, spleen, pancreas, adrenal glands and kidneys are unremarkable. There is atherosclerosis of the aorta without aneurysm. Small periumbilical fat-containing hernia. Nonobstructive bowel gas lora erica. Moderate lumbar spondylosis with levoscoliosis. IMPRESSION: 1. Extensive patchy interstitial bibasilar infiltrates with areas of groundglass consolidation and in terlobular septal thickening. Findings suspicious for pneumonia superimposed on chronic interstitial lung disease. 2: Small left pleural effusion, chronic. 3: Moderate gastric distention, nonspecific. Moderate hiatal hernia. 4: Cardiomegaly. Reviewed, dictated and finalized at location A. IC TEACHER IMPRESSION: 1. Extensive patchy interstitial bibasilar infiltrates with areas of groundglas s consolidation and interlobular septal thickening. Findings suspicious for pne umonia superimposed on chronic interstitial lung disease. 2: Small left pleural effusion, chronic. 3: Moderate gastric distention, nonspecific. Moderate hiatal hernia. 4: Cardiomegaly.
--- NOTE | ~2022-11-26 | XR_ITS ---
XR chest 1V portable 11/26/2022 09:07 Indication: Weakness. Dizziness. History of CHF. Procedure: AP portable chest Comparison: Comparison to multiple prior studies sequentially, with oldest reviewed study dated 09/29. Findings: Status post median sternotomy for CABG. There is a prosthetic aortic valve. Mild interstiti al edema. Small left pleural effusion. No pneumothorax. Cardiomegaly. Impression: 1: Mild interstitial edema with small left pleural effusion. Reviewed, dictated and finalized at location A. CE INVESTIGATOR Impression: 1: Mild interstitial edema with small left pleural effusion.
--- NOTE | ~2022-11-26 | CT_ITS ---
EXAMINATION: CT abdomen pelvis wo con DATE: 11/28/2022 06:12 INDICATION: Abdominal pain. TECHNIQUE: Computed tomography (CT) of the abdomen and pelvis was performed without intravenous contr ast. Automated exposure control and iterative reconstruction technique were employed. The dose-length product was 735.82 mGy-cm. COMPARISON: CT abdomen and pelvis 11/27/2022, chest CT 09/30/2022 FINDINGS: The visualized portions of the lung bases demonstrate septal thickening and right lower lob e honeycombing. Calcified bilateral pulmonary nodules are consistent with old granulomatous disease. There is a chronic small left pleural effusion with pleural thickening. There is mild rounded atelect asis in left lower lobe and lingula. Cardiomegaly is noted. There are changes of aortic valve replace ment. No pericardial effusion. The liver and gallbladder are normal. Calcifications in the spleen are consistent with old granulomatous disease. The pancreas, adrenal glands, and kidneys are normal. The re is an umbilical hernia containing fat. The prostate is mildly enlarged. There is diverticulosis of the colon without evidence of diverticulitis. The appendix is normal. The stomach is distended. Ther e is fluid in the esophagus. There are no pathologically enlarged lymph nodes. There is no free intra peritoneal fluid. There is severe lumbar spondylosis. There is mild thoracic spondylosis. IMPRESSION: 1. Chronic interstitial lung disease in a pattern of usual interstitial pneumonia (UIP). 2. Chronic small left pleural effusion. 3. Umbilical hernia containing fat. Reviewed, dictated and finalized at location A. HOUSE COUNSEL IMPRESSION: 1. Chronic interstitial lung disease in a pattern of usual interstitial pneumon ia (UIP). 2. Chronic small left pleural effusion. 3. Umbilical hernia containing fat.
--- NOTE | 2022-11-26 08:49 | ECG_ITS ---
Measurements Intervals Walker Rate: 65 P: 39 ID: [id number] QRS: -27 QRSD: 170 T: 128 QT: 472 QTc: 492 Interpretive Statements SINUS RHYTHM LEFT BUNDLE BRANCH BLOCK BASELINE ARTIFACT- I, II ABNORMAL ECG COMPARED TO ECG 09/30/2022 09:18:42 NO SIGNIFICANT CHANGES Electronically Signed On 11-26-2022 13:26:55 RABBIT DRESSER by Brooks Ordoñez D.O.
--- NOTE | 2022-11-26 08:57 | ED.AMS ---
HPI - Altered Mental Status General Chief Complaint: Altered Mental Status Stated Complaint: ambulance Time Seen by Provider: 11/26/22 08:38 Source: patient Mode of arrival: EMS Limitations: no limitations History of Present Illness HPI narrative: 77-year-old male with a history of schizophrenia, OCD, CVA with right thalamic infarct with intermittent mental status changes, hypertension, diabetes mellitus, dyslipidemia, coronary artery disease status post CABG x2, status post AVR, atrial fibrillation on Coumadin, chronic anemia presents with -- last known well at 6:30 a.m. a.m.. He walked to get breakfast and while having breakfast he was noted to -- decreased responsiveness and was staring blankly. Blood sugar that point was normal. His blood pressure was noted to be 72/39. Subsequent blood pressure readings have been normal. -- On presentation to the ER the patient appears to have decreased responsiveness and dysarthria with mild dysphagia. He was noted to have drift of the left lower extremity. His NIHSS was noted to be 4( unable to answer the month, drift left lower extremity, dysarthria and mild aphasia). the patient does not appear to be a candidate for tPA as he is anticoagulated with his last INR of 2.3 on 11/07/2022 complaint: altered mental status Onset (ago): hour(s) ( symptoms started 2 hours ago.) Time: 07:00 Timing confirmed by: caregiver Severity: mild Associated symptoms: denies other symptoms Related Data Home Medications Medication Instructions Recorded Confirmed aripiprazole 10 mg tablet 15 mg PO HS 02/04/20 11/26/22 aspirin 81 mg tablet,delayed 81 mg PO DAILY 02/04/20 11/26/22 release (Erin Low Dose Aspirin) divalproex 125 mg capsule,delayed 250 mg PO BID 02/04/20 11/26/22 release sprinkle fenofibrate nanocrystallized 145 145 mg PO DAILY 02/04/20 11/26/22 mg tablet insulin lispro 100 unit/mL See Rx Instructions .Route .COMPLEX 02/04/20 11/26/22 subcutaneous pen (Humalog KwikPen (U-100) Insulin) ipratropium 0.5 mg-albuterol 3 mg 3 ml inhalation Q6H 02/04/20 11/26/22 (2.5 mg base)/3 mL nebulization soln loratadine 10 mg tablet 10 mg PO DAILY 02/04/20 11/26/22 metformin 500 mg tablet,extended 500 mg PO DAILY 02/04/20 11/26/22 release 24 hr pantoprazole 40 mg tablet,delayed 40 mg PO DAILY 02/04/20 11/26/22 release warfarin 5 mg tablet 5 mg PO HS 02/04/20 11/26/22 insulin syringe-needle U-100 1 mL 04/23/21 11/26/22 29 gauge x 1/2 (TRUEplus Insulin) isosorbide mononitrate 30 mg 30 mg PO DAILY 04/23/21 11/26/22 tablet,extended release 24 hr oxybutynin chloride 5 mg tablet 5 mg PO HS 04/23/21 11/26/22 donepezil 5 mg tablet (Aricept) 5 mg PO HS 12/03/21 11/26/22 Allergies Allergy/AdvReac Type Severity Reaction Status Date / Time pear Allergy Unknown Verified 09/30/22 08:53 strawberry Allergy Unknown Verified 09/30/22 08:53 NKDA AdvReac Unknown Uncoded 08/31/22 09:36 Review of Systems Review of Systems: All systems reviewed & are unremarkable except as noted in HPI and below Constitutional: Constitutional: Reports as per HPI and Reports no additional constitutional complaints Eyes: Eyes: Reports as per HPI and Reports no additional eye complaints ENT: Reports system reviewed and no additional complaints, except as documented and Reports as per HPI Cardiovascular: Cardiovascular: Reports as per HPI and Reports no additional cardiovascular complaints Respiratory: Respiratory: Reports as per HPI and Reports no additional respiratory complaints Gastrointestinal: Gastrointestinal: Reports as per HPI and Reports no additional gastrointestinal complaints Genitourinary: Genitourinary: Reports no additional male genitourinary complaints and Reports as per HPI Musculoskeletal: Musculoskeletal: Reports no additional musculoskeletal complaints and Reports as per HPI Integumentary/Breasts: Skin/Breast: Reports system reviewed and no additional complaints, except as docu and R
[2022-11-26 09:17] LABS: Basophils Absolute Auto 0.02 K/mm3 (0.00-0.10); Basophils Percent Auto 0.5 % (0.0-1.0); Eosinophils Absolute Auto 0.07 K/mm3 (0.02-0.50); Eosinophils Percent Auto 1.6 % (1.0-6.0); Hematocrit 31.5 % (37.0-46.0); Hemoglobin 10.3 g/dL (12.4-15.3); Immature Granulocyte Absolute 0.01 K/mm3 (0.00-0.00); Immature Granulocyte Percent A 0.2 % (0.0-0.0); Lymphocytes Absolute Auto 1.52 K/mm3 (1.10-4.50); Lymphocytes Percent Auto 34.7 % (18.0-42.0); Mean Corpuscular HGB Conc 32.7 g/dL (32.0-36.0); Mean Corpuscular Hemoglobin 29.3 pg (27.0-31.0); Mean Corpuscular Volume 89.5 fL (78.0-102.0); Mean Platelet Volume 11.4 fl (8.7-11.0); Monocytes Absolute Auto 0.31 K/mm3 (0.10-0.90); Monocytes Percent Auto 7.1 % (2.0-11.0); Neutrophils Absolute Auto 2.5 K/mm3 (1.7-7.2); Neutrophils Percent Auto 55.9 % (50.0-70.0); Platelet Count Result 166 K/mm3 (150-420); Red Blood Count 3.52 M/mm3 (4.70-6.10); Red Cell Distribution Width 16.2 % (11.6-14.4); White Blood Count 4.4 K/mm3 (4.8-10.8)
[2022-11-26 09:29] LABS: INR 3.4; Partial Thromboplastin Time 39.1 SEC (23.90-30.70)
[2022-11-26 09:32] LABS: Albumin Level 2.8 g/dL (3.4-5.0); Alkaline Phosphatase 45 U/L (46-116); Anion Gap 7 mmol/L (8-16); Aspartate Amino Transferase 17 U/L (15-37); Bilirubin,Total 0.4 mg/dL (0.00-1.00); Blood Urea Nitrogen 26 mg/dL (7-18); Calcium 8.1 mg/dL (8.5-10.1); Carbon Dioxide 26 mmol/L (21-32); Chloride 110 mmol/L (98-108); Estimated Glomerular Filt Rate > 60; Glucose 121 mg/dL (70-99); Osmolality Calculated 301 mOsm/kg (285-295); Potassium 4.5 mmol/L (3.5-5.1); Sodium 143 mmol/L (136-145)
[2022-11-26 09:34] LABS: Lactic Acid Reflex 0.9 mmol/L (0.4-2.0)
[2022-11-26 09:38] LABS: Lipase 15 U/L (16-77)
[2022-11-26 09:41] LABS: Alanine Aminotransferase 13 U/L (16-63); NT Pro B Type Natriuretic Pept 1240 pg/mL (0-450)
--- NOTE | 2022-11-26 10:25 | PC.NURSE ---
[address] for scan per stretcher, 0915 pt return per stretcher. 1015 oliveros for urine specimen. unable to urinate , multiple attempts with urinal. 1025 bladder drained, cath removed.
[2022-11-26 10:31] LABS: Add Urine Microscopic? YES; Appearance Urine Clear (Clear); Bilirubin Urine Negative (Negative); Blood Urine 1+ (Negative); Color Urine Yellow (Yellow); Glucose Urine UA Trace (Negative); Ketones Urine Negative (Negative); Leukocyte Esterase Ur Negative LEU/UL (Negative); Nitrate Urine Negative (Negative); Protein Urine Negative (Negative); pH Urine 6.5 (5.0-8.0)
[2022-11-26 10:36] LABS: WBC Urine 0-3 /hpf (0-3)
[2022-11-26 10:37] LABS: Bacteria Urine 1+ /hpf; Renal Epithelial Cells Urine Few /hpf; Squamous Epithelial Cell Urine Few /hpf (Few)
--- NOTE | 2022-11-26 10:55 | PC.NURSE ---
pt and cece notified of admission, voiced understanding. 1056 call placed to january taveras, charge nurse. pt to go to room 209. encouraged to call after reviewing chart.
--- NOTE | 2022-11-26 11:10 | ADMGEN ---
This patient, Nery Bowie, was admitted to 2nd Floor Room 209-1. Patient/family oriented to hospital policies and general routines including ID bracelet, bed and alarms, visiting hours, pain management, procedures, bathroom and other care routines, personal items, smoking policy, room service/diet, and visiting hours. Information on how to activate the Rapid Response Team has been discussed. Patient/Family are encouraged to report perceived risks to care and to ask questions if they do not understand what they are told or what they should do.
[2022-11-26] MEDS: ALBUTEROL SULFATE (*SP) INHALER 2 PUFF INHALATION ×3 (12:55→21:02)
[2022-11-26 17:02] LABS: Glucose Point of Care 269 mg/dl (65-105)
[2022-11-26] MEDS: DOCUSATE SODIUM 100 MG CAPSULE PO (17:03)
[2022-11-26] MEDS: DIVALPROEX SODIUM SPRINKLE 125 MG CAP.DR 250 MG PO (17:03)
[2022-11-26] MEDS: OXYBUTYNIN CHLORIDE 5 MG TABLET PO (21:02)
[2022-11-26] MEDS: DONEPEZIL HCL 5 MG TABLET PO (21:02)
[2022-11-26] MEDS: ARIPiprazole 5 MG TABLET 15 MG PO (21:03)
[2022-11-26 21:06] LABS: Glucose Point of Care 186 mg/dl (65-105)
[2022-11-27] VITALS: BP 153/55; PULSE 60; RESP 16; TEMP 36.2; O2SAT 98
[2022-11-27 03:52] VITALS: PULSE 66
[2022-11-27 06:52] LABS: Hematocrit 31.2 % (37.0-46.0); Hemoglobin 10.2 g/dL (12.4-15.3); Mean Corpuscular HGB Conc 32.7 g/dL (32.0-36.0); Mean Corpuscular Hemoglobin 28.6 pg (27.0-31.0); Mean Corpuscular Volume 87.4 fL (78.0-102.0); Mean Platelet Volume 11.7 fl (8.7-11.0); Platelet Count Result 200 K/mm3 (150-420); Red Blood Count 3.57 M/mm3 (4.70-6.10); Red Cell Distribution Width 15.9 % (11.6-14.4); White Blood Count 8.5 K/mm3 (4.8-10.8)
[2022-11-27 07:04] LABS: INR 2.1; Prothrombin Time 21.5 Seconds (9.50-12.10)
[2022-11-27 07:07] LABS: Alanine Aminotransferase 11 U/L (16-63); Albumin Level 2.9 g/dL (3.4-5.0); Alkaline Phosphatase 51 U/L (46-116); Anion Gap 5 mmol/L (8-16); Aspartate Amino Transferase 15 U/L (15-37); Bilirubin,Total 0.4 mg/dL (0.00-1.00); Blood Urea Nitrogen 18 mg/dL (7-18); Calcium 8.2 mg/dL (8.5-10.1); Carbon Dioxide 27 mmol/L (21-32); Chloride 104 mmol/L (98-108); Estimated CRCL calculation 63 ml/min; Estimated Glomerular Filt Rate > 60; Glucose 214 mg/dL (70-99); Osmolality Calculated 289 mOsm/kg (285-295); Potassium 4.7 mmol/L (3.5-5.1); Sodium 136 mmol/L (136-145); Total Protein 6.1 g/dL (6.4-8.2)
[2022-11-27 08:00] VITALS: BP 164/62; PULSE 83; PULSE 89; RESP 17; TEMP 37.1; O2SAT 99
[2022-11-27 08:15] LABS: Glucose Point of Care 202 mg/dl (65-105)
--- NOTE | 2022-11-27 09:18 | PM.SD2 ---
Same Day Admit/Disch: HPI History of Present Illness Chief complaint: TIA/CHF Narrative: Nery Bowie is a 77 year old male that presented to arm urgency department with altered mental status and neurological deficiency. Patient has a past medical history of AFib, anemia, CAD, CVA, diabetes, congestive heart failure diastolic, glyco mole, hyperlipidemia, hypertension, Metro valve for relapse, obsessive-compulsive disorder, and schizophrenia. patient is a poor historian most information obtained medical records according to notes patient experienced decreased responsiveness with a blank stare while at home. When he presented to the emergency department it appeared that he had decreased responsiveness with dysphagia which resolves before he came to the floor. patient was sick here for observation he has not experienced any neurological deficiency since his admission. He does complain of nausea but have not actively had any nausea. WBCs 4.4, hemoglobin 10.3, hematocrit 31.5, platelets 166 , sodium 143, potassium 4 point, BUN 26, creatinine 0.8 glucose 121 BNP 1240, INR 3.4 lactic acid 0.9 component 21 lipase 14, CT of the head no acute findings, chest x-ray interstitial edema with small left pleural effusion. Patient being admitted for TIA. patient has not had any symptoms since admission. The patient denies SOB, CP, palpitation, extremity numbness, lightheadedness, dizziness, constipation, diarrhea, chills, or fever. [facility] Past Medical History Medical History Atrial fibrillation Postoperatively after CABG with bioprosthetic aortic valve replacement. Chronic anemia Chronic anticoagulation Coumadin. Chronic cystitis Coronary artery disease (~10/2011) Status post CABG. CVA (cerebral vascular accident) Chronic thalamic infarct Diabetes mellitus, with long-term current use of insulin Hemoglobin A1c was 7.2% in September 2020. Diastolic congestive heart failure, NYHA class 2 Echocardiogram August 2019: 1. Left ventricular systolic function is normal, estimated at 60-65%. 2. There is mildly increased left ventricular wall thickness. 3. Left ventricular septal wall motion is abnormal with septal motion related to bundle branch block. 4. The left ventricular diastolic function is grade II diastolic dysfunction. 5. Probable perimembranous VSD peak velocity 5.3 m/sec 110 mmHg gradient, however, not well visualized on this study. 6. The bioprosthetic aortic valve is not well visualized. 7. There is no bioprosthetic aortic valve stenosis. 8. There is trace regurgitation of the bioprosthetic aortic valve. 9. The mitral valve has thickened leaflets. 10. There is trace mitral valve regurgitation. 11. Focal, predominantly fixed and calcified echodensity above anterior mitral valve leaflet. 12. Unable to estimate PA systolic pressure due to poor spectral resolution of tricuspid regurgitant jet. 13. Mild mitral annular calcification. Glaucoma Hyperlipidemia Hypertension Mitral valve prolapse Obsessive compulsive disorder Schizophrenia Ventricular septal defect Managed conservatively. Surgical History Surgical History History of aortic valve replacement with bioprosthetic valve History of bilateral cataract extraction History of coronary artery bypass graft x 2 (10/2011) GONZALEZ to LAD, left radial graft to obtuse marginal. Hx of CABG 2 vessel CABG October 2011 with GONZALEZ to LAD and left radial artery graft to obtuse marginal branch Family History Family History Mother Diabetes mellitus Adopted (not a blood relative) Father Adopted (not a blood relative) Cancer Social History Social History Social History: The patient is adopted so family history is unknown. Th
[2022-11-27] MEDS: PROCHLORPERAZINE EDISYLATE 10 MG/2 ML VIAL IV PUSH ×2 (09:22→19:58)
[2022-11-27] MEDS: METOCLOPRAMIDE HCL INJ 10 MG/2 ML VIAL 5 MG IV PUSH ×3 (12:05→23:03)
[2022-11-27 16:00] VITALS: BP 160/76; PULSE 101; RESP 15; TEMP 36.5; O2SAT 96
[2022-11-27 17:00] LABS: Glucose Point of Care 246 mg/dl (65-105)
[2022-11-27 20:08] LABS: Glucose Point of Care 211 mg/dl (65-105)
--- NOTE | 2022-11-27 20:19 | PC.NURSE ---
Compazine given and HS meds held per patient's request due to nausea. Patient incontinent of urine with cares provided. Patient denies any other needs. No distress noted. Call light in reach.
[2022-11-27] MEDS: traMADol HCL (*CRX) 25 MG TABLET PO (22:52)
[2022-11-27 23:45] VITALS: BP 165/78; PULSE 100; RESP 20; TEMP 36.6; O2SAT 95
[2022-11-28] MEDS: PROCHLORPERAZINE EDISYLATE 10 MG/2 ML VIAL IV PUSH (04:49)
[2022-11-28 04:50] VITALS: BP 115/64; PULSE 96; RESP 20; TEMP 36.6; O2SAT 95
--- NOTE | 2022-11-28 04:50 | PC.NURSE ---
Patient called for pain medicine due to abdominal pain. Nurse entered room and patient also complained of nausea. Patient then had 75ml of black, coffee ground emesis. Patient's abdomen distended and tender to palpation in all quads. Bowel sounds + in all 4 quads. Charge nurse notified. Patient's 0600 Reglan and PRN Compazine given. Had started to given PRN [place] right before patient's emesis. [place] was opened so discarded appropriately. As nurse finished giving meds patient's IV in left hand leaking. IV site discontinued. Nurses attempting to start another IV.
--- NOTE | 2022-11-28 04:54 | PC.NURSE ---
Susanne Solorio NP notified of pt's coffee ground emesis and c/o epigastric and abdominal pain; New orders were received and noted.
--- NOTE | 2022-11-28 05:02 | PC.NURSE ---
Susanne Solorio NP, called back with orders to type and screen pt for blood.
[2022-11-28] MEDS: METOCLOPRAMIDE HCL INJ 10 MG/2 ML VIAL 5 MG IV PUSH ×3 (05:11→17:11)
[2022-11-28 05:36] LABS: Hematocrit 34.5 % (37.0-46.0); Hemoglobin 11.5 g/dL (12.4-15.3); Mean Corpuscular HGB Conc 33.3 g/dL (32.0-36.0); Mean Corpuscular Hemoglobin 29.1 pg (27.0-31.0); Mean Corpuscular Volume 87.3 fL (78.0-102.0); Mean Platelet Volume 10.8 fl (8.7-11.0); Platelet Count Result 211 K/mm3 (150-420); Red Blood Count 3.95 M/mm3 (4.70-6.10); Red Cell Distribution Width 16.1 % (11.6-14.4); White Blood Count 11.4 K/mm3 (4.8-10.8)
[2022-11-28 05:49] LABS: INR 1.4; Prothrombin Time 15.4 Seconds (9.50-12.10)
[2022-11-28] MEDS: HYDROmorphone HCL INJ (*CRX) 2 MG/ML VIAL 0.5 MG IV PUSH (05:49)
[2022-11-28 05:51] LABS: Alanine Aminotransferase 14 U/L (16-63); Albumin Level 3.2 g/dL (3.4-5.0); Alkaline Phosphatase 52 U/L (46-116); Anion Gap 6 mmol/L (8-16); Aspartate Amino Transferase 17 U/L (15-37); Bilirubin,Total 0.8 mg/dL (0.00-1.00); Blood Urea Nitrogen 28 mg/dL (7-18); Calcium 8.5 mg/dL (8.5-10.1); Carbon Dioxide 29 mmol/L (21-32); Chloride 105 mmol/L (98-108); Estimated CRCL calculation 47 ml/min; Estimated Glomerular Filt Rate > 60; Glucose 288 mg/dL (70-99); Osmolality Calculated 306 mOsm/kg (285-295); Potassium 4.6 mmol/L (3.5-5.1); Sodium 140 mmol/L (136-145); Total Protein 6.6 g/dL (6.4-8.2)
--- NOTE | 2022-11-28 06:25 | PC.NURSE ---
Patient to CT scan in bed @ 0555 and back in room @ 0610. Patient tolerated well. Denies nausea and pain has subsided. Call light in reach.
[2022-11-28 07:35] LABS: Glucose Point of Care 308 mg/dl (65-105)
[2022-11-28 07:36] VITALS: BP 132/61; PULSE 95; RESP 16; TEMP 36.5; O2SAT 94
--- NOTE | 2022-11-28 08:46 | WPDPN ---
Progress Note: A&P Assessment and Plan (1) Supratherapeutic INR: Code(s): R79.1 - Abnormal coagulation profile Status: Acute Assessment and Plan: INR 3.4>2.1> 1.4 resumed warfarin mg daily (2) Brain TIA: Code(s): G45.9 - Transient cerebral ischemic attack, unspecified Status: Acute Assessment and Plan: neurological deficiency resolved CT of the head no acute findings history of CVA (3) CHF (congestive heart failure): Code(s): I50.9 - Heart failure, unspecified Status: Acute Assessment and Plan: compensated continue home medication (4) Atrial fibrillation: Code(s): I48.91 - Unspecified atrial fibrillation Status: Acute Assessment and Plan: controlled continue home medication (5) Chronic anemia: Code(s): D64.9 - Anemia, unspecified Status: Acute Assessment and Plan: patient is at baseline no active bleeding noted (6) Diastolic congestive heart failure, NYHA class 2: Qualifiers: Congestive heart failure chronicity: chronic Qualified Code(s): I50.32 - Chronic diastolic (congestive) heart failure Code(s): I50.30 - Unspecified diastolic (congestive) heart failure Status: Acute (7) Acute renal insufficiency: Code(s): N28.9 - Disorder of kidney and ureter, unspecified Status: Acute Assessment and Plan: patient is at baseline follow-up with PCP (8) Hyperlipidemia: Code(s): E78.5 - Hyperlipidemia, unspecified Status: Acute Assessment and Plan: continue statins (9) Hypertension: Qualifiers: Hypertension type: essential hypertension Qualified Code(s): I10 - Essential (primary) hypertension Code(s): I10 - Essential (primary) hypertension Status: Acute Assessment and Plan: controlled continue home medication (10) Schizophrenia: Code(s): F20.9 - Schizophrenia, unspecified Status: Acute Assessment and Plan: continue home medication (11) Nausea & vomiting: Code(s): R11.2 - Nausea with vomiting, unspecified Status: Acute Assessment and Plan: no significant findings on his CT of his abdomen possible secondary to gastritis or gastroparesis continue Compazine along with Reglan and IV hydration with a clear liquid diet Subjective Date/time seen: 11/28/22 08:46 Interval history: patient notes that he still is experiencing some nausea vomiting with improvement he also continues to abdominal pain. He has not had any neurological deficiency. The patient denies SOB, CP, palpitation, extremity numbness, lightheadedness, dizziness, constipation, diarrhea, chills, or fever. Patient will remain hospitalized as his nausea vomiting has resolved due to his diabetes. Review of Systems Review of Systems: All systems reviewed & are unremarkable except as noted in HPI and below Exam Narrative: GENERAL: This is a well-nourished, well-developed patient, in no apparent distress. HEAD: normocephalic, atraumatic. EYES: PERRL. Sclera clear/white. Vision is grossly intact. EARS: External ears normal, auditory canals clear and without drainage, TMs normal without perforation. Hearing grossly intact. NOSE: External nose normal with no obvious nasal discharge, nares without redness, no rhinorrhea. THROAT: Mucous membranes moist, posterior pharynx clear. NECK: Neck supple, non-tender without lymphadenopathy, masses or thyromegaly. CARDIOVASCULAR: Regular rate and rhythm without murmurs, gallops, or rubs. RESPIRATORY: Clear to auscultation. Breath sounds equal bilaterally. No wheezes, rales, or rhonchi. GASTROINTESTINAL: Abdomen soft, non-tender, nondistended. Bowel sounds are active. No hepato-splenomegaly, or palpable masses. No guarding. SKIN: warm, intact with no suspicious lesions or rash, good texture and turgor. NEURO: awake, alert, and oriented to person, place and t
--- NOTE | 2022-11-28 08:53 | PC.NURSE ---
Patient suffering from N/V prior to my shift this am. Patient currently NPO and medication being held due to N/V. Medication administered to treat N/V. Holding other medications at this time.
[2022-11-28] MEDS: traMADol HCL (*CRX) 25 MG TABLET PO (10:50)
--- NOTE | 2022-11-28 10:55 | PC.NURSE ---
Patient c/o sternal pain. VSS. No s/s cardiac complications. Tramadol administered PO. Will continue to monitor.
[2022-11-28 11:39] LABS: Glucose Point of Care 234 mg/dl (65-105)
--- NOTE | 2022-11-28 12:45 | PC.NURSE ---
Patient had emesis of 200 ml dark brown emesis after clear liquid lunch.
[2022-11-28] MEDS: SODIUM CHLORIDE 0.9% IV 1,000 ML 100 ML IV CONT ×2 (12:48→23:09)
[2022-11-28] MEDS: ALBUTEROL SULFATE (*SP) INHALER 2 PUFF INHALATION ×3 (12:49→20:58)
--- NOTE | 2022-11-28 12:52 | PC.NURSE ---
Patient had 200 mls of brown liquid emesis with large amount of mucous and small amount of coffee grounds. ZMT OPERATOR aware
[2022-11-28 16:00] VITALS: BP 164/74; PULSE 101; RESP 16; TEMP 36.8; O2SAT 95
[2022-11-28 16:50] LABS: Glucose Point of Care 306 mg/dl (65-105)
[2022-11-28] MEDS: DIVALPROEX SODIUM SPRINKLE 125 MG CAP.DR 250 MG PO (17:08)
[2022-11-28] MEDS: DOCUSATE SODIUM 100 MG CAPSULE PO (17:10)
[2022-11-28 18:09] LABS: Hemoglobin 10.5 g/dL (12.4-15.3)
[2022-11-28 20:00] VITALS: PULSE 101; RESP 16; O2SAT 95
[2022-11-28] MEDS: WARFARIN (*PBKC) 5 MG TABLET PO (20:56)
[2022-11-28] MEDS: ARIPiprazole 5 MG TABLET 15 MG PO (20:57)
[2022-11-28] MEDS: PANTOPRAZOLE 40 MG TABLET PO (20:57)
[2022-11-28] MEDS: DONEPEZIL HCL 5 MG TABLET PO (20:57)
[2022-11-28] MEDS: OXYBUTYNIN CHLORIDE 5 MG TABLET PO (20:57)
[2022-11-28 21:01] LABS: Glucose Point of Care 246 mg/dl (65-105)
[2022-11-29] VITALS: BP 147/61; PULSE 85; RESP 14; TEMP 36.6; O2SAT 96
[2022-11-29] MEDS: METOCLOPRAMIDE HCL INJ 10 MG/2 ML VIAL 5 MG IV PUSH ×3 (00:31→11:28)
[2022-11-29 05:18] LABS: Hematocrit 28.8 % (37.0-46.0); Hemoglobin 9.5 g/dL (12.4-15.3); Mean Corpuscular Hemoglobin 29.5 pg (27.0-31.0); Mean Corpuscular Volume 89.4 fL (78.0-102.0); Mean Platelet Volume 10.9 fl (8.7-11.0); Platelet Count Result 169 K/mm3 (150-420); Red Blood Count 3.22 M/mm3 (4.70-6.10); Red Cell Distribution Width 16.4 % (11.6-14.4); White Blood Count 11.8 K/mm3 (4.8-10.8)
[2022-11-29 05:32] LABS: INR 1.3; Prothrombin Time 14.2 Seconds (9.50-12.10)
[2022-11-29 05:51] LABS: Alanine Aminotransferase 10 U/L (16-63); Albumin Level 2.5 g/dL (3.4-5.0); Alkaline Phosphatase 41 U/L (46-116); Anion Gap 7 mmol/L (8-16); Aspartate Amino Transferase 15 U/L (15-37); Bilirubin,Total 0.4 mg/dL (0.00-1.00); Blood Urea Nitrogen 41 mg/dL (7-18); Calcium 7.8 mg/dL (8.5-10.1); Carbon Dioxide 24 mmol/L (21-32); Chloride 111 mmol/L (98-108); Estimated CRCL calculation 49 ml/min; Estimated Glomerular Filt Rate > 60; Glucose 260 mg/dL (70-99); Magnesium 2.1 mg/dL (1.8-2.4); Osmolality Calculated 313 mOsm/kg (285-295); Potassium 4.7 mmol/L (3.5-5.1); Sodium 142 mmol/L (136-145); Total Protein 5.3 g/dL (6.4-8.2)
[2022-11-29 07:35] LABS: Glucose Point of Care 257 mg/dl (65-105)
[2022-11-29 08:00] VITALS: BP 130/64; PULSE 86; RESP 16; TEMP 36.5; O2SAT 94
[2022-11-29] MEDS: PROCHLORPERAZINE EDISYLATE 10 MG/2 ML VIAL IV PUSH (08:28)
[2022-11-29] MEDS: FUROSEMIDE 10 MG TABLET 30 MG PO (08:33)
[2022-11-29] MEDS: DIVALPROEX SODIUM SPRINKLE 125 MG CAP.DR 250 MG PO (08:34)
[2022-11-29] MEDS: FENOFIBRATE NANOCRYSTALLIZED 145 MG TABLET PO (08:35)
[2022-11-29] MEDS: ISOSORBIDE MONONITRATE 30 MG TAB.ER.24H PO (08:35)
[2022-11-29] MEDS: ASPIRIN 81 MG ENTERIC TABLET PO (08:36)
[2022-11-29] MEDS: ALBUTEROL SULFATE (*SP) INHALER 2 PUFF INHALATION ×2 (08:37→13:05)
[2022-11-29] MEDS: PANTOPRAZOLE 40 MG TABLET PO (08:37)
[2022-11-29] MEDS: ATORVASTATIN 40 MG TABLET PO (08:38)
--- NOTE | 2022-11-29 09:15 | PC.NURSE ---
Patient resumed clear liquid diet per CANDY ROLLING MACHINE OPERATOR. Compazine administered with am meds. No N/V noted at this time. Will continue to monitor. CANDY ROLLING MACHINE OPERATOR advised to wait to start IV fluids to see if patient can tolerate clear liquids.
[2022-11-29 11:27] LABS: Glucose Point of Care 261 mg/dl (65-105)
--- NOTE | 2022-11-29 11:52 | PM.DS ---
DS: Admitting Diagnosis Discharge Date 11/29/2022 Admitting Diagnosis TIA DS: Discharge Diagnosis Discharge Diagnosis (1) Supratherapeutic INR: Code(s): R79.1 - Abnormal coagulation profile Status: Acute Assessment and Plan: INR 3.4>2.1> 1.4>1.3 resumed warfarin mg daily (2) Brain TIA: Code(s): G45.9 - Transient cerebral ischemic attack, unspecified Status: Acute Assessment and Plan: neurological deficiency resolved CT of the head no acute findings history of CVA (3) CHF (congestive heart failure): Code(s): I50.9 - Heart failure, unspecified Status: Acute Assessment and Plan: compensated continue home medication (4) Atrial fibrillation: Code(s): I48.91 - Unspecified atrial fibrillation Status: Acute Assessment and Plan: controlled continue home medication (5) Chronic anemia: Code(s): D64.9 - Anemia, unspecified Status: Acute Assessment and Plan: patient is at baseline no active bleeding noted (6) Diastolic congestive heart failure, NYHA class 2: Qualifiers: Congestive heart failure chronicity: chronic Qualified Code(s): I50.32 - Chronic diastolic (congestive) heart failure Code(s): I50.30 - Unspecified diastolic (congestive) heart failure Status: Acute (7) Acute renal insufficiency: Code(s): N28.9 - Disorder of kidney and ureter, unspecified Status: Acute Assessment and Plan: patient is at baseline follow-up with PCP (8) Hyperlipidemia: Code(s): E78.5 - Hyperlipidemia, unspecified Status: Acute Assessment and Plan: continue statins (9) Hypertension: Qualifiers: Hypertension type: essential hypertension Qualified Code(s): I10 - Essential (primary) hypertension Code(s): I10 - Essential (primary) hypertension Status: Acute Assessment and Plan: controlled continue home medication (10) Schizophrenia: Code(s): F20.9 - Schizophrenia, unspecified Status: Acute Assessment and Plan: continue home medication (11) Nausea & vomiting: Code(s): R11.2 - Nausea with vomiting, unspecified Status: Acute Assessment and Plan: resolved no significant findings on his CT of his abdomen x2 possible secondary to gastritis or gastroparesis continue Compazine along with Reglan patient instructed to have a bland diet DS: Summary Hospital Course Reason for hospitalization: Neurological deficiency altered mental status change Hospital Course: Nery Bowie is a 77 year old male? that presented to arm urgency department with altered mental status and neurological deficiency.? Patient has a past medical history of AFib, anemia, CAD, CVA, diabetes, congestive heart failure diastolic, glyco mole, hyperlipidemia, hypertension, Metro valve for relapse, obsessive-compulsive disorder,? and schizophrenia. patient is a poor historian most information obtained medical records according to notes patient experienced decreased responsiveness with a blank stare while at home.? When he presented to the emergency department it appeared that he had decreased? responsiveness with dysphagia which resolves before he came to the floor.? patient was sick here for observation he has not experienced any neurological deficiency since his admission.? He did complain of nausea? and has had a couple of rounds of nausea vomiting. It was reported that he had coffee ground emesis H and H stable. patient nausea vomiting has resolved he has no longer had any neurological deficiency will discharge today in follow-up with his primary care physician. Time Spent with Patient Time attestation: Total time spent providing and/or coordinating discharge services: Exam Narrative: GENERAL: This is a well-nourished, well-developed patient, in no apparent distress. HEAD: normocephalic, atraumatic.
--- NOTE | 2022-11-29 15:20 | PC.NURSE ---
Patient discharged to long-term care. Discharge instructions given to Gadiel from long-term care. Gadiel voiced understanding. Personal items including cell phone sent home with patient. Patient left unit accompanied by principal technical writer and left hospital in privately owned vehicle, accompanied by long-term care worker.
== END 2022-11-29 15:20 | disposition home or self-care (01) ==
LOC: CHSED 10:51 → CHS2ND 10:58
PROVIDERS: Nurse Practitioner; Admitting Provider Internal Medicine; Emergency Provider Internal Medicine Critical Care Medicine; PCP Family Medicine; Visit Provider Internal Medicine
DX: G45.9 Transient cerebral ischemic attack, unspecified (principal); I11.0 Hypertensive heart disease with heart failure; I50.32 Chronic diastolic (congestive) heart failure; I48.20 Chronic atrial fibrillation, unspecified; I25.10 Atherosclerotic heart disease of native coronary artery without angina pectoris; D64.9 Anemia, unspecified; E11.9 Type 2 diabetes mellitus without complications; E78.5 Hyperlipidemia, unspecified; R79.1 Abnormal coagulation profile; R11.2 Nausea with vomiting, unspecified; Q21.0 Ventricular septal defect; H40.9 Unspecified glaucoma; F20.9 Schizophrenia, unspecified; F42.9 Obsessive-compulsive disorder, unspecified; Z79.01 Long term (current) use of anticoagulants; Z95.1 Presence of aortocoronary bypass graft; Z95.2 Presence of prosthetic heart valve; Z86.73 Personal history of transient ischemic attack (TIA), and cerebral infarction without residual deficits; Z79.82 Long term (current) use of aspirin; Z79.4 Long term (current) use of insulin; Z87.891 Personal history of nicotine dependence
CPT/HCPCS: 36415; 70450; 71045; 74176; 80053; 81001; 82948; 83605; 83690; 83735; 83880; 84484; 85014; 85018; 85025; 85027; 85610; 85730; 86850; 86900; 86901; 93005; 96361; 96374; 96375; 96376; 99285; A9270; G0378; J0780; J1170; J1815; J2405; J2765; J7030

== ENCOUNTER 2022-12-05 08:05 | Outpatient (CLI) | payer MEDICARE, SELFPAY ==
[2022-12-05 08:51] LABS: INR 2.7; Prothrombin Time 26.9 Seconds (9.50-12.10)
[2022-12-05 09:08] LABS: Hemoglobin A1C 7.2 % (<5.7)
[2022-12-05 09:13] LABS: Alanine Aminotransferase 18 U/L (16-63); Albumin Level 2.7 g/dL (3.4-5.0); Alkaline Phosphatase 60 U/L (46-116); Anion Gap 4 mmol/L (8-16); Aspartate Amino Transferase 16 U/L (15-37); Bilirubin,Total 0.3 mg/dL (0.00-1.00); Blood Urea Nitrogen 27 mg/dL (7-18); Calcium 8.3 mg/dL (8.5-10.1); Carbon Dioxide 29 mmol/L (21-32); Chloride 109 mmol/L (98-108); Cholesterol 121 mg/dL (0-200); Estimated Glomerular Filt Rate > 60; Glucose 90 mg/dL (70-99); HDL Direct 30 mg/dL (40-60); LDL Cholesterol Calculated 73 mg/dL (<130); Osmolality Calculated 299 mOsm/kg (285-295); Potassium 4.3 mmol/L (3.5-5.1); Sodium 142 mmol/L (136-145); Total Protein 5.9 g/dL (6.4-8.2); Triglycerides 90 mg/dL (0-150)
== END 2022-12-05 08:06 | disposition home or self-care (01) ==
LOC: CHSLAB 08:08
PROVIDERS: PCP Family Medicine; Visit Provider Internal Medicine Cardiovascular Disease
DX: I25.118 Atherosclerotic heart disease of native coronary artery with other forms of angina pectoris (principal); E11.59 Type 2 diabetes mellitus with other circulatory complications; I15.2 Hypertension secondary to endocrine disorders; Z79.4 Long term (current) use of insulin; E78.5 Hyperlipidemia, unspecified; E11.69 Type 2 diabetes mellitus with other specified complication
CPT/HCPCS: 36415; 80053; 80061; 83036; 85610

== ENCOUNTER 2022-12-09 17:34 | Emergency (ER) | payer MEDICARE, MEDICAID, SELFPAY ==
[2022-12-09] VITALS (18 sets, daily range): BP systolic 119–183; BP diastolic 43–73; PULSE 61–89; RESP 14–20; TEMP 36.1–36.4; O2SAT 97–100
--- NOTE | ~2022-12-09 | XR_ITS ---
EXAMINATION: XR chest 1V portable DATE: 12/09/2022 18:35 INDICATION: Pedal edema TECHNIQUE: frontal view of the chest was obtained. COMPARISON: Chest radiograph dated 11/26/2022 FINDINGS: Diffuse increased interstitial pattern throughout both lungs with lower lung predominance consistent with mild pulmonary edema. There is additional scattered bilateral linear bandlike discoid atelectasi s . Blunting at the left costophrenic angle consistent with persistent small left pleural effusion. C ardiomegaly. Median sternotomy wires and mediastinal surgical clips are seen, likely from prior coron aiden artery bypass grafting. Aortic valve repair. IMPRESSION: 1. Likely congestive heart failure with cardiac Tori and lower lung predominant diffuse bilateral i ncreased interstitial pattern consistent with mild pulmonary edema. 2. Small left pleural effusion. Reviewed, dictated and finalized at location A. SHEARER IMPRESSION: 1. Likely congestive heart failure with cardiac Tori and lower lung predomina nt diffuse bilateral increased interstitial pattern consistent with mild pulmon aiden edema. 2. Small left pleural effusion.
--- NOTE | 2022-12-09 17:54 | ED.GENADULT ---
HPI - General Adult General Chief complaint: Unspecified Stated complaint: low blood pressure History of Present Illness HPI narrative: The patient is a 77-year-old who lives in assisted living. Comorbidities of congestive heart failure, Lasix 30 mg daily, schizophrenia, atrial fibrillation on warfarin therapy, stroke, diabetes, hypertension, and hyperlipidemia. He is status post aortic valve replacement and coronary artery bypass grafting in the past, 2011. He had a recent cardiac catheterization 2020, that did not reveal stenosis of the aortic valve of significance or significant aortic regurgitation. No recent echocardiograms noted in the system. The patient presents due to a diastolic blood pressure of 25. Upon arrival, EMS noted a blood pressure of 130 systolic over 60 diastolic. He was transported here. The patient has no complaints. Denies any chest pain or discomfort or tightness. No headache or nausea or vomiting. No abdominal pain. No fevers or chills. No URI or UTI symptoms. He does have swelling of both legs which is being treated with Lasix therapy. He does complain of shakiness of his hands which started this afternoon at 4:00 p.m.. Related Data Home Medications Medication Instructions Recorded Confirmed aripiprazole 10 mg tablet 15 mg PO HS 02/04/20 12/09/22 aspirin 81 mg tablet,delayed 81 mg PO DAILY 02/04/20 12/09/22 release (Erin Low Dose Aspirin) divalproex 125 mg capsule,delayed 250 mg PO BID 02/04/20 12/09/22 release sprinkle fenofibrate nanocrystallized 145 145 mg PO DAILY 02/04/20 12/09/22 mg tablet insulin lispro 100 unit/mL See Rx Instructions .Route .COMPLEX 02/04/20 12/09/22 subcutaneous pen (Humalog KwikPen (U-100) Insulin) ipratropium 0.5 mg-albuterol 3 mg 3 ml inhalation Q6H 02/04/20 12/09/22 (2.5 mg base)/3 mL nebulization soln loratadine 10 mg tablet 10 mg PO DAILY 02/04/20 12/09/22 metformin 500 mg tablet,extended 500 mg PO DAILY 02/04/20 12/09/22 release 24 hr pantoprazole 40 mg tablet,delayed 40 mg PO DAILY 02/04/20 12/09/22 release warfarin 5 mg tablet 5 mg PO HS 02/04/20 12/09/22 insulin syringe-needle U-100 1 mL 04/23/21 12/09/22 29 gauge x 1/2 (TRUEplus Insulin) isosorbide mononitrate 30 mg 30 mg PO DAILY 04/23/21 12/09/22 tablet,extended release 24 hr oxybutynin chloride 5 mg tablet 5 mg PO HS 04/23/21 12/09/22 donepezil 5 mg tablet (Aricept) 5 mg PO HS 12/03/21 12/09/22 warfarin 2.5 mg tablet 2.5 mg PO WEEKLY 12/09/22 12/09/22 Allergies Allergy/AdvReac Type Severity Reaction Status Date / Time No Known Drug Allergies Allergy Other Verified 12/09/22 18:00 pear Allergy Unknown Verified 12/09/22 18:00 strawberry Allergy Unknown Verified 12/09/22 18:00 Review of Systems Review of Systems: All systems reviewed & are unremarkable except as noted in HPI and below Constitutional: Constitutional: Reports no additional constitutional complaints, Denies anorexia, Denies body ache(s), Denies chills, Denies excessive sweating, Denies fatigue, Denies fever(s), Denies frequent falls, Denies headache(s), Denies malaise and Denies poor appetite Eyes: Eyes: Reports no additional eye complaints, Denies blurry vision, Denies change in vision, Denies irritation, Denies itchy eyes and Denies photophobia ENT: Reports system reviewed and no additional complaints, except as documented, Reports Normal hearing present, Denies change in voice, Denies dysphagia, Denies vertigo, Denies dizziness, Denies ear discharge, Denies headache(s), Denies hearing loss, Denies hoarseness, Denies nasal congestion, Denies neck pain, Denies sinus pressure, Denies sore throat and Denies throat swelling Cardiovascular: Cardiovascular: Reports no additional cardiovascular complaints, Denies chest pain, Denies syncope, Denies rapid heart rate, Denies irregular heart rhythm, Reports leg edema, Denies dyspnea and Denies slow heart rate Respiratory: Respiratory: Reports no additional re
[2022-12-09 17:58] LABS: Glucose Point of Care 135 mg/dl (65-105)
--- NOTE | 2022-12-09 18:15 | ECG_ITS ---
Measurements Intervals [place] Rate: 62 P: 40 LA: 144 QRS: -21 QRSD: 169 T: 118 QT: 495 QTc: 505 Interpretive Statements SINUS RHYTHM LEFT BUNDLE BRANCH BLOCK [120+ ms QRS DURATION, 80+ ms Q/S IN V1/V2, 85+ ms R IN I/aVL/V5/V6] COMPARED TO ECG 11/26/2022 09:18:04 NO SIGNIFICANT CHANGES Electronically Signed On 12-10-2022 8:32:03 [employer]ETING [employer] by Bianka Stone M.D.
[2022-12-09 18:36] LABS: Basophils Absolute Auto 0.02 K/mm3 (0.00-0.10); Basophils Percent Auto 0.3 % (0.0-1.0); Eosinophils Percent Auto 2.9 % (1.0-6.0); Hematocrit 23.8 % (37.0-46.0); Hemoglobin 7.5 g/dL (12.4-15.3); Immature Granulocyte Absolute 0.02 K/mm3 (0.00-0.00); Immature Granulocyte Percent A 0.3 % (0.0-0.0); Lymphocytes Absolute Auto 2.65 K/mm3 (1.10-4.50); Lymphocytes Percent Auto 38.9 % (18.0-42.0); Mean Corpuscular HGB Conc 31.5 g/dL (32.0-36.0); Mean Corpuscular Hemoglobin 28.8 pg (27.0-31.0); Mean Corpuscular Volume 91.5 fL (78.0-102.0); Monocytes Absolute Auto 0.49 K/mm3 (0.10-0.90); Monocytes Percent Auto 7.2 % (2.0-11.0); Neutrophils Absolute Auto 3.4 K/mm3 (1.7-7.2); Neutrophils Percent Auto 50.4 % (50.0-70.0); Platelet Count Result 230 K/mm3 (150-420); Red Cell Distribution Width 16.6 % (11.6-14.4); White Blood Count 6.8 K/mm3 (4.8-10.8)
[2022-12-09] MEDS: FUROSEMIDE INJ 100 MG/10 ML VIAL 40 MG IV PUSH (18:55)
[2022-12-09 18:59] LABS: Alanine Aminotransferase 12 U/L (16-63); Albumin Level 2.6 g/dL (3.4-5.0); Alkaline Phosphatase 56 U/L (46-116); Anion Gap 6 mmol/L (8-16); Aspartate Amino Transferase 13 U/L (15-37); Bilirubin,Total 0.3 mg/dL (0.00-1.00); Blood Urea Nitrogen 23 mg/dL (7-18); Calcium 7.9 mg/dL (8.5-10.1); Carbon Dioxide 27 mmol/L (21-32); Chloride 106 mmol/L (98-108); Estimated CRCL calculation 55 ml/min; Estimated Glomerular Filt Rate > 60; Glucose 134 mg/dL (70-99); INR 4.7; Magnesium 1.7 mg/dL (1.8-2.4); NT Pro B Type Natriuretic Pept 1319 pg/mL (0-450); Osmolality Calculated 293 mOsm/kg (285-295); Partial Thromboplastin Time 46.2 SEC (23.90-30.70); Potassium 4.1 mmol/L (3.5-5.1); Prothrombin Time 45.7 Seconds (9.50-12.10); Sodium 139 mmol/L (136-145); Total Protein 5.6 g/dL (6.4-8.2); Troponin I 18.6 ng/L (0.00-60.4)
[2022-12-09] MEDS: FUROSEMIDE INJ 20 MG/2 ML VIAL IV PUSH ×2 (19:44→20:37)
[2022-12-09] MEDS: PANTOPRAZOLE SODIUM IV 40 MG VIAL 80 MG IV PUSH (19:45)
--- NOTE | 2022-12-09 20:25 | PC.NURSE ---
2020: ERP goes into room with RN and performs a rectal exam for a stool sample. Sample taken to lab.
[2022-12-09 20:29] LABS: Occult Blood Positive (Negative)
[2022-12-09] MEDS: POTASSIUM BICARBONATE 25 MEQ TABEF PO (20:34)
[2022-12-09] MEDS: MAGNESIUM SULF 2 GM/WATER 50ML 2 GM/50 ML BAG IVPB (20:38)
--- NOTE | 2022-12-09 21:30 | PC.NURSE ---
RN calls pt's son and pt's legal guardian to update on pt status and obtain consent to give pt a unit of blood. Aicha Rogers, Legal Guardian, was talked to ([phone]) and gave consent for the blood administration. Asked for updates and RN states will call when pt has been accepted to another facility.
[2022-12-09] MEDS: SODIUM CHLORIDE 0.9% IV 250 ML 30 ML IV CONT (22:01)
[2022-12-09 22:37] LABS: SARS-CoV-2 Ag Negative (Negative)
[2022-12-09 22:50] LABS: Glucose Point of Care 244 mg/dl (65-105)
--- NOTE | 2022-12-09 23:17 | PC.NURSE ---
RN calls pt's legal guardian to update on pt's status and to inform pt has been accepted to [facility] pending consent of legal guardian. Aicha Galvan, Pt's legal guardian, verbally consented to pt being transferred to [facility]. Aicha is updated on pt's room assignment and has all questions answered. Aicha states that she will call pt's son and other family to keep them informed.
[2022-12-10 00:03] LABS: Hematocrit 29.8 % (37.0-46.0); Hemoglobin 9.5 g/dL (12.4-15.3)
[2022-12-10 00:05] VITALS: BP 121/45; PULSE 61; RESP 14; O2SAT 100
[2022-12-10 00:17] VITALS: BP 127/46; PULSE 61; RESP 14; O2SAT 99
== END 2022-12-10 00:32 | disposition short-term general hospital (02) ==
PROVIDERS: Emergency Provider Emergency Medicine; PCP Family Medicine
DX: K92.2 Gastrointestinal hemorrhage, unspecified (principal); I11.0 Hypertensive heart disease with heart failure; I50.9 Heart failure, unspecified; R60.9 Edema, unspecified; D68.8 Other specified coagulation defects; E78.5 Hyperlipidemia, unspecified; E83.42 Hypomagnesemia; E11.9 Type 2 diabetes mellitus without complications; I25.810 Atherosclerosis of coronary artery bypass graft(s) without angina pectoris; Z95.1 Presence of aortocoronary bypass graft; Z79.82 Long term (current) use of aspirin; Z79.4 Long term (current) use of insulin; Z79.01 Long term (current) use of anticoagulants; Z87.891 Personal history of nicotine dependence; Z20.822 Contact with and (suspected) exposure to COVID-19
CPT/HCPCS: 36415; 36430; 71045; 80053; 82272; 82948; 83735; 83880; 84484; 85014; 85018; 85025; 85610; 85730; 86850; 86900; 86901; 86920; 87426; 93005; 96361; 96365; 96375; 96376; 99285; A9270; C9113; C9803; J1940; J3475; J7050; P9016

== ENCOUNTER 2023-01-16 09:32 | Emergency (ER) | payer MEDICARE, MEDICAID, SELFPAY ==
[2023-01-16 09:32] VITALS: BP 107/46; PULSE 70; RESP 18; TEMP 36.1; O2SAT 99
--- NOTE | 2023-01-16 09:36 | ED.GENADULT ---
HPI - General Adult General Chief complaint: Recheck/Abnormal Lab/Rx Stated complaint: abnormal labs Time Seen by Provider: 01/16/23 09:36 Source: patient and RN notes reviewed Mode of arrival: wheelchair Limitations: no limitations History of Present Illness HPI narrative: patient had labs drawn today for his Coumadin therapy. His INR is 8.5. His bookkeeper receptionist called him and said he had to go into the emergency room for anything over 8. Patient has no complaints not having any bleeding. Nothing makes it better or worse MD complaint: elevated INR Related Data Home Medications Medication Instructions Recorded Confirmed aripiprazole 10 mg tablet 15 mg PO HS 02/04/20 01/16/23 aspirin 81 mg tablet,delayed 81 mg PO DAILY 02/04/20 01/16/23 release (Erin Low Dose Aspirin) divalproex 125 mg capsule,delayed 250 mg PO BID 02/04/20 01/16/23 release sprinkle fenofibrate nanocrystallized 145 145 mg PO DAILY 02/04/20 01/16/23 mg tablet insulin lispro 100 unit/mL See Rx Instructions .Route .COMPLEX 02/04/20 01/16/23 subcutaneous pen (Humalog KwikPen (U-100) Insulin) ipratropium 0.5 mg-albuterol 3 mg 3 ml inhalation Q6H 02/04/20 01/16/23 (2.5 mg base)/3 mL nebulization soln loratadine 10 mg tablet 10 mg PO DAILY 02/04/20 01/16/23 metformin 500 mg tablet,extended 500 mg PO DAILY 02/04/20 01/16/23 release 24 hr pantoprazole 40 mg tablet,delayed 40 mg PO BID 02/04/20 01/16/23 release warfarin 5 mg tablet 5 mg PO HS 02/04/20 01/16/23 insulin syringe-needle U-100 1 mL 04/23/21 01/16/23 29 gauge x 1/2 (TRUEplus Insulin) isosorbide mononitrate 30 mg 30 mg PO DAILY 04/23/21 01/16/23 tablet,extended release 24 hr oxybutynin chloride 5 mg tablet 5 mg PO HS 04/23/21 01/16/23 donepezil 5 mg tablet (Aricept) 5 mg PO HS 12/03/21 01/16/23 furosemide 20 mg tablet (Lasix) 40 mg PO DAILY 01/16/23 01/16/23 insulin glargine 100 unit/mL 25 unit subcut HS 01/16/23 01/16/23 subcutaneous solution (Lantus U-100 Insulin) Allergies Allergy/AdvReac Type Severity Reaction Status Date / Time No Known Drug Allergies Allergy Other Verified 01/16/23 09:38 pear Allergy Unknown Verified 01/16/23 09:38 strawberry Allergy Unknown Verified 01/16/23 09:38 Review of Systems Review of Systems: All systems reviewed & are unremarkable except as noted in HPI and below PMFSH Past Medical History Medical History Atrial fibrillation Postoperatively after CABG with bioprosthetic aortic valve replacement. Chronic anemia Chronic anticoagulation Coumadin. Chronic cystitis Coronary artery disease (~10/2011) Status post CABG. CVA (cerebral vascular accident) Chronic thalamic infarct Diabetes mellitus, with long-term current use of insulin Hemoglobin A1c was 7.2% in September 2020. Diastolic congestive heart failure, NYHA class 2 Echocardiogram August 2019: 1. Left ventricular systolic function is normal, estimated at 60-65%. 2. There is mildly increased left ventricular wall thickness. 3. Left ventricular septal wall motion is abnormal with septal motion related to bundle branch block. 4. The left ventricular diastolic function is grade II diastolic dysfunction. 5. Probable perimembranous VSD peak velocity 5.3 m/sec 110 mmHg gradient, however, not well visualized on this study. 6. The bioprosthetic aortic valve is not well visualized. 7. There is no bioprosthetic aortic valve stenosis. 8. There is trace regurgitation of the bioprosthetic aortic valve. 9. The mitral valve has thickened leaflets. 10. There is trace mitral valve regurgitation. 11. Focal, predominantly fixed and calcified echodensity above anterior mitral valve leaflet. 12. Unable to estimate PA systolic pressure due to poor spectral resolution of tricuspid regurgitant jet. 13. Mild mitral annular calcification. Glaucoma Hyperlipidemia Hypertension Mitral valve prolapse Obsessive compulsive
[2023-01-16] MEDS: PHYTONADIONE 5 MG TABLET PO (10:02)
[2023-01-16 10:15] VITALS: BP 96/60; PULSE 62; RESP 18; O2SAT 98
== END 2023-01-16 10:15 | disposition home or self-care (01) ==
PROVIDERS: Emergency Provider Emergency Medicine; PCP Family Medicine
DX: R79.1 Abnormal coagulation profile (principal); I11.0 Hypertensive heart disease with heart failure; I50.30 Unspecified diastolic (congestive) heart failure; I48.91 Unspecified atrial fibrillation; E78.5 Hyperlipidemia, unspecified; Z79.01 Long term (current) use of anticoagulants; Z79.82 Long term (current) use of aspirin; Z79.4 Long term (current) use of insulin; Z86.73 Personal history of transient ischemic attack (TIA), and cerebral infarction without residual deficits; Z87.891 Personal history of nicotine dependence
CPT/HCPCS: 36415; 85610; 99282; A9270

== ENCOUNTER 2023-01-17 10:03 | Outpatient (RCR) | payer MEDICARE, SELFPAY ==
[2023-01-16 07:54] LABS: Prothrombin Time 78.3 Seconds (9.50-12.10)
[2023-01-16 08:19] LABS: INR 8.5
[2023-01-17 10:50] LABS: INR 2.7
== END 2023-04-16 23:59 | disposition home or self-care (01) ==
LOC: CHSLAB 10:03
PROVIDERS: PCP Family Medicine; Visit Provider Internal Medicine Cardiovascular Disease
DX: Z51.81 Encounter for therapeutic drug level monitoring (principal); Z95.3 Presence of xenogenic heart valve; Z79.01 Long term (current) use of anticoagulants
CPT/HCPCS: 36415; 85610